=== PATIENT | male | born 1950 | race Caucasian/White ===

== ENCOUNTER 2019-06-29 14:14 | Emergency (ER) | payer MEDICARE, SELFPAY ==
--- NOTE | ~2019-06-29 | CT_ITS ---
EXAMINATION: CT abdomen pelvis wo con DATE: 06/29/2019 15:51 INDICATION: Left flank pain for 2 days. Bloating. Status post cholecystectomy. TECHNIQUE: Computed tomography (CT) of the abdomen and pelvis was performed without intravenous contr ast. Automated exposure control and iterative reconstruction technique were employed. Exam dose: 733 .23 mGy-cm total exam DLP. COMPARISON: 05/19/2017 CT abdomen pelvis FINDINGS: Mild bilateral gynecomastia. Prominent coronary artery calcification. Normal heart size. No pericardial or pleural effusion. The lung bases are clear of infiltrate or consolidation. Diffuse hepatic steatosis. No hepatic space-occupying mass lesion. Status post cholecystectomy. No bile duct or pancreatic duct dilatation. No pancreatic mass lesion or calcification. Normal morphology of the adrenal glands. 3.6 cm left renal cyst. No other renal space-occupying mass lesion is evident. No urinary tract calci fication or hydroureteronephrosis. There is abdominal aortic calcification and calcification aortic branches. 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 There is atherosclerotic calcification of the iliac and fem oral arteries. Normal appendix. There is diverticulosis of the sigmoid and descending colon. There is a minimal domingo colic stranding in the mid sigmoid colon area. Mild sigmoid diverticulitis is suggested. No abscess o r apparent intraperitoneal free air. Prostate enlargement. Mild diffuse bladder wall thickening. Small bilateral fat-containing inguinal hernias. Diffuse idiopathic skeletal hyperostosis of the thoracic and lumbar spine. Avascular necrosis of both femoral heads. IMPRESSION: Suggestion of subtle mild mid sigmoid diverticulitis Normal appendix Prostate enlargement Bilateral fat-containing inguinal hernias 3.6 cm left renal cyst Hepatic steatosis Coronary atherosclerosis Mild bilateral gynecomastia Reviewed, dictated and finalized at [facility] Reviewed, dictated and finalized at [facility].
[2019-06-29 15:15] VITALS: BP 119/68; PULSE 73; RESP 20; TEMP 36.6; O2SAT 97
[2019-06-29] MEDS: SODIUM CHLORIDE 0.9% IV 1,000 ML 999 ML IV CONT (16:06)
[2019-06-29] MEDS: KETOROLAC (*BKC) 60 MG/2 ML VIAL IM (16:07)
[2019-06-29 16:12] LABS: Hematocrit 44.6 % (37.0-46.0); Hemoglobin 14.8 g/dL (12.4-15.3); Mean Corpuscular HGB Conc 33.2 g/dL (32.0-36.0); Mean Corpuscular Hemoglobin 31.4 pg (27.0-31.0); Mean Corpuscular Volume 94.7 fL (78.0-102.0); Mean Platelet Volume 10.6 fl (8.7-11.0); Platelet Count Result 256 K/mm3 (150-420); Red Blood Count 4.71 M/mm3 (4.70-6.10); Red Cell Distribution Width 12.6 % (11.6-14.4); White Blood Count 15.2 K/mm3 (4.8-10.8)
--- NOTE | 2019-06-29 16:19 | PC.NURSE ---
pt resting per cot, no complaints. awaiting lab results.
[2019-06-29 16:25] LABS: Bilirubin Urine Negative (Negative); Blood Urine 3+ (Negative); Glucose Urine UA Negative (Negative); Ketones Urine Negative (Negative); Leukocyte Esterase Ur Negative (Negative); Nitrate Urine Negative (Negative); Protein Urine Negative (Negative); Specific Grav Ur 1.025 (1.010-1.020); Urobilinogen Urine 0.2 mg/dL (0.2-1.0); pH Urine 5.5 (5.0-8.0)
[2019-06-29 16:30] LABS: Alanine Aminotransferase 37 U/L (16-63); Albumin Level 3.8 g/dL (3.4-5.0); Alkaline Phosphatase 67 U/L (46-116); Aspartate Amino Transferase 19 U/L (15-37); Bilirubin,Total 0.4 mg/dL (0.00-1.00); Blood Urea Nitrogen 21 mg/dL (7-18); Calcium 9.1 mg/dL (8.5-10.1); Carbon Dioxide 26 mmol/L (21-32); Estimated CRCL calculation 63 ml/min; Estimated Glomerular Filt Rate > 60; Glucose 100 mg/dL (70-99); Total Protein 7.3 g/dL (6.4-8.2)
[2019-06-29 16:39] LABS: Add Urine Microscopic? YES; Appearance Urine Clear (Clear); Color Urine Yellow (Yellow); RBC Urine 21-50 /hpf (0-2); WBC Urine None seen /hpf (0-3)
[2019-06-29 16:40] LABS: Bacteria Urine Trace /hpf; Mucus Urine Moderate /lpf; Squamous Epithelial Cell Urine Few /hpf (Few)
[2019-06-29 16:52] LABS: Chloride 105 mmol/L (98-108); Osmolality Calculated 293 mOsm/kg (285-295); Sodium 140 mmol/L (136-145)
[2019-06-29 16:57] VITALS: BP 114/69; PULSE 71; RESP 202; TEMP 36.6; O2SAT 97
--- NOTE | 2019-06-29 16:57 | ED.ABDPAIN ---
HPI - Abdominal Pain General Chief Complaint: Urogenital-Male Stated Complaint: left side pain Source: patient Mode of arrival: ambulatory Limitations: no limitations History of Present Illness HPI narrative: Stay 68-year-old gentleman presents with left flank pain rates his pain about 8/10 with no fever chills no shortness of breath no chest pain pain does radiate to his left lower quadrant, with no nausea vomiting no diarrhea constipation. MD elicited complaint: abdominal pain and flank pain Pertinent past history: none Onset (ago): day(s) Pain Consistency: constant Location: L flank Severity: moderate Pain scale (0-10): 8 Quality: aching Radiation: L flank Migration to: no migration Exacerbating factors: nothing Relieving factors: nothing Associated symptoms: hematuria Related Data Home Medications Medication Instructions Recorded Confirmed clopidogrel 75 mg PO DAILY 02/13/19 06/29/19 finasteride 5 mg PO DAILY 02/13/19 06/29/19 metformin 500 mg PO BID 02/13/19 06/29/19 metoprolol tartrate 25 mg PO BID 02/13/19 06/29/19 tamsulosin 0.4 mg PO DAILY 02/13/19 06/29/19 Allergies Allergy/AdvReac Type Severity Reaction Status Date / Time carbamazepine [From Tegretol] Allergy Unknown Verified 02/13/19 13:32 Penicillins Allergy Unknown Verified 02/13/19 13:32 Review of Systems Review of Systems: All systems reviewed & are unremarkable except as noted in HPI and below Exam Const: General: no acute distress and alert Orientation/consciousness: patient oriented x3 HENMT: Head: normal to inspection Eyes: Conjunctivae: conjunctivae normal Pupils: Equal, round and reactive pupils present Neck: Neck: normal visual inspection Chest: Chest palpation & inspection: normal inspection of the chest Resp: Effort & Inspection: normal respiratory effort Auscultation: clear to auscultation bilaterally Cardio: Rate: regular rate Rhythm: regular rhythm GI: GI Palp: Yes Soft to palpation : General: Yes CVA tenderness Back/Spine/Pelvis: Back: CVA tenderness (left flank) Skin: General skin exam: normal color Rashes: no rashes Neuro: General: patient oriented x3 Extrem: General: normal to inspection Psych: Mental Status: mental status grossly normal Course Course Emergency Course: Improved after administration of pain medication. Vital Signs Vital signs: Vital Signs Temperature 36.6 C 06/29/19 15:15 Pulse Rate 73 06/29/19 15:15 Respiratory Rate 20 06/29/19 15:15 Blood Pressure 119/68 06/29/19 15:15 Pulse Oximetry 97 06/29/19 15:15 Temperature 36.6 C 06/29/19 15:15 Pulse Rate 73 06/29/19 15:15 Respiratory Rate 20 06/29/19 15:15 Blood Pressure 119/68 06/29/19 15:15 Pulse Oximetry 97 06/29/19 15:15 MDM - Abdominal Pain Lab Data Result diagrams: 06/29/19 16:03 06/29/19 16:03 Labs: Lab Results 06/29/19 06/29/19 06/29/19 Range/Units 15:37 16:03 16:03 WBC 15.2 H (4.8-10.8) K/mm3 RBC 4.71 (4.70-6.10) M/mm3 Hgb 14.8 (12.4-15.3) g/dL Hct 44.6 (37.0-46.0) % MCV 94.7 (78.0-102.0) fL MCH 31.4 H (27.0-31.0) pg MCHC 33.2 (32.0-36.0) g/dL RDW 12.6 (11.6-14.4) % Plt Count 256 (150-420) K/mm3 MPV 10.6 (8.7-11.0) fl Sodium 140 (136-145) mmol/L Potassium 4.0 (3.5-5.1) mmol/L Chloride 105 (98-108) mmol/L Carbon Dioxide 26 (21-32) mmol/L Anion Gap 13.0 (7-16) mmol/L BUN 21 H (7-18) mg/dL Creatinine 1.19 (0.70-1.30) mg/dL Estim Creat Clear Calc 63 ml/min Estimated GFR > 60 (59 - ) Glucose 100 H (70-99) mg/dL Calculated Osmolality 293 (285-295) mOsm/kg Calcium 9.1 (8.5-10.1) mg/dL Total Bilirubin 0.4 (0.00-1.00) mg/dL AST 19 (15-37) U/L ALT 37 (16-63) U/L Alkaline Phosphatase 67 (46-116) U/L Total Protein 7.3 (6.4-8.2) g/dL Albumin 3.8 (3.4-5.0) g/dL Urine Color Yellow (Yellow) Urine Appearance
== END 2019-06-29 17:07 | disposition home or self-care (01) ==
PROVIDERS: Emergency Provider Emergency Medicine
DX: N39.0 Urinary tract infection, site not specified (principal); R31.9 Hematuria, unspecified; I25.10 Atherosclerotic heart disease of native coronary artery without angina pectoris; E11.9 Type 2 diabetes mellitus without complications; J44.9 Chronic obstructive pulmonary disease, unspecified
CPT/HCPCS: 36415; 74176; 80053; 81001; 85027; 96360; 96372; 99283; 99284; J1885; J7030

== ENCOUNTER 2019-07-18 04:27 | Emergency (ER) | payer MEDICARE, SELFPAY ==
[2019-07-18 04:43] VITALS: BP 136/80; PULSE 94; RESP 18; TEMP 36.3; O2SAT 97
--- NOTE | 2019-07-18 04:56 | ED.DENTAL ---
HPI - Dental/Oral General Chief complaint: Dental/Oral Stated complaint: Swollen jaw Source: patient Mode of arrival: ambulatory Limitations: no limitations History of Present Illness HPI Narrative: Patient presents with left lower jaw swelling has severe dental decay with tooth loss in his left lower jaw and throughout, currently no fever chills has a tender large left submandibular gland swelling with no fever or chills no shortness of breath no nausea vomiting or abdominal pain Onset (ago): hour(s) Duration: constant Severity: mild Severity scale (1-10): 3 Relieving factors: NSAIDs Exacerbating factors: chewing Context: history of dental caries Associated symptoms: gum swelling Related Data Home Medications Medication Instructions Recorded Confirmed clopidogrel 75 mg PO DAILY 02/13/19 07/18/19 finasteride 5 mg PO DAILY 02/13/19 07/18/19 metformin 500 mg PO BID 02/13/19 07/18/19 metoprolol tartrate 25 mg PO BID 02/13/19 07/18/19 tamsulosin 0.4 mg PO DAILY 02/13/19 07/18/19 lovastatin 20 mg PO DAILY 07/18/19 07/18/19 nitroglycerin 0.4 mg SUBLINGUAL PRN PRN 07/18/19 07/18/19 Allergies Allergy/AdvReac Type Severity Reaction Status Date / Time carbamazepine [From Tegretol] Allergy Unknown Verified 02/13/19 13:32 clindamycin Allergy Unknown Verified 07/18/19 04:54 Penicillins Allergy Unknown Verified 02/13/19 13:32 Review of Systems Review of Systems: All systems reviewed & are unremarkable except as noted in HPI and below Exam Const: General: no acute distress and alert Orientation/consciousness: patient oriented x3 HENMT: Head: normal to inspection Eyes: Conjunctivae: conjunctivae normal Pupils: Equal, round and reactive pupils present Neck: Neck: normal visual inspection and no lymphadenopathy Chest: Chest palpation & inspection: normal inspection of the chest Resp: Effort & Inspection: normal respiratory effort Cardio: Rate: regular rate : Testes: Testes normal Back/Spine/Pelvis: Back: no CVA tenderness Skin: General skin exam: normal color Rashes: no rashes Neuro: General: patient oriented x3 Extrem: General: normal to inspection Psych: Appearance: grossly normal Mental Status: mental status grossly normal Course Vital Signs Vital signs: Vital Signs Temperature 36.3 C L 07/18/19 04:43 Pulse Rate 94 07/18/19 04:43 Respiratory Rate 18 07/18/19 04:43 Blood Pressure 136/80 07/18/19 04:43 Pulse Oximetry 97 07/18/19 04:43 Temperature 36.3 C L 07/18/19 04:43 Pulse Rate 94 07/18/19 04:43 Respiratory Rate 18 07/18/19 04:43 Blood Pressure 136/80 07/18/19 04:43 Pulse Oximetry 97 07/18/19 04:43 Discharge Plan Discharge Clinical Impression: Dental caries, Dental abscess Patient Disposition: Home, Self-Care Condition: Stable Instructions: Antibiotic Form, Dental Abscess (ED) Additional Instructions: take medicine as prescribed and follow-up with primary care physician if symptoms persist or worsen. Prescriptions: New sulfamethoxazole-trimethoprim [Bactrim DS] 800-160 mg tablet 1 tablet PO Q12H Qty: 20 RF: 0 No Action metformin 500 mg tablet 500 mg PO BID RF: 0 clopidogrel 75 mg tablet 75 mg PO DAILY RF: 0 tamsulosin 0.4 mg capsule 0.4 mg PO DAILY RF: 0 finasteride 5 mg tablet 5 mg PO DAILY RF: 0 metoprolol tartrate 25 mg tablet 25 mg PO BID RF: 0 sucralfate [Carafate] 1 gram tablet 1 gm PO Q6H Qty: 90 RF: 1 pantoprazole [Protonix] 40 mg tablet,delayed release (DR/EC) 40 mg PO QAM 42 Days Qty: 42 RF: 0 nitroglycerin 0.4 mg tablet, sublingual 0.4 mg sublingual PRN PRN (Reason: Angina) RF: 0 lovastatin 20 mg tablet 20 mg PO DAILY RF: 0 Follow-up/Referrals: Maicol Gómez M.D. [Primary Care Provider] - Stand Alone Forms: Work/School Release IP Time of Disposition: :02
[2019-07-18 05:05] VITALS: BP 138/78; PULSE 85; RESP 20; O2SAT 98
== END 2019-07-18 05:12 | disposition home or self-care (01) ==
PROVIDERS: Emergency Provider Emergency Medicine; PCP Family Medicine
DX: K02.9 Dental caries, unspecified (principal); K04.7 Periapical abscess without sinus
CPT/HCPCS: 99283

== ENCOUNTER 2019-08-10 08:19 | Emergency (ER) | payer MEDICARE, SELFPAY ==
[2019-08-10 08:25] VITALS: BP 131/73; PULSE 81; RESP 18; TEMP 36.3; O2SAT 97
--- NOTE | 2019-08-10 08:40 | ED.ALLEREA ---
HPI - Allergic Reaction General Chief complaint: Allergic Reaction Stated complaint: Swelling in face Time Seen by Provider: 08/10/19 08:41 Source: patient Mode of arrival: ambulatory Limitations: no limitations History of Present Illness HPI narrative: 68-year-old man with a history type 2 diabetes comes in today complaining of swelling of his left lower lip and jaw that started this morning. Patient is concerned that he has an allergic reaction. He has had some dental infections recently and used leftover UTI medicine (cephalexin) since the swelling and pain began 2 days ago. He also complains that he has been short of breath. He denies fever, itching, rash, wheezing, cough, cold symptoms, sore throat or tongue/throat swelling. He states he has had an allergic reaction to penicillins and clindamycin in the past. MD complaint: facial swelling Onset (ago): day(s) (1-2) Exposure: medication Known history of allergy to: Penicillins, clindamycin, carbamazepine Symptoms: facial swelling and lip swelling Severity: mild Treatment prior to arrival: none Related Data Home Medications Medication Instructions Recorded Confirmed clopidogrel 75 mg PO DAILY 02/13/19 08/10/19 finasteride 5 mg PO DAILY 02/13/19 08/10/19 metformin 500 mg PO BID 02/13/19 08/10/19 metoprolol tartrate 25 mg PO BID 02/13/19 08/10/19 tamsulosin 0.4 mg PO DAILY 02/13/19 08/10/19 lovastatin 20 mg PO DAILY 07/18/19 08/10/19 nitroglycerin 0.4 mg SUBLINGUAL PRN PRN 07/18/19 08/10/19 Allergies Allergy/AdvReac Type Severity Reaction Status Date / Time carbamazepine [From Tegretol] Allergy Unknown Verified 02/13/19 13:32 clindamycin Allergy Unknown Verified 07/18/19 04:54 Penicillins Allergy Unknown Verified 02/13/19 13:32 Review of Systems Constitutional: Constitutional: Denies chills, Denies fever(s) and Denies weakness Eyes: Eyes: Denies change in vision and Denies photophobia ENT: Denies dysphagia, Denies nasal congestion and Denies sore throat Cardiovascular: Cardiovascular: Denies chest pain and Denies radiating jaw, neck or arm pain Respiratory: Respiratory: Denies cough, Reports dyspnea and Denies wheezing Gastrointestinal: Gastrointestinal: Denies abdominal pain, Denies diarrhea, Denies nausea and Denies vomiting Genitourinary: Genitourinary: Denies hematuria, Denies dysuria and Denies urinary frequency Musculoskeletal: Musculoskeletal: Denies back pain, Denies arthralgias and Denies joint swelling Integumentary/Breasts: Skin/Breast: Denies pruritus, Denies erythema and Denies rash Neurologic: Denies vertigo, Denies dizziness and Denies syncope Psychiatric: Psychiatric: Denies anxiety and Denies depression Hematologic/Lymphatic: Hematologic/Lymphatic: Denies easy bleeding and Denies easy bruising Allergic/Immunologic: Allergic/Immunologic: Reports lip swelling, Denies throat swelling, Denies tongue swelling and Denies wheezing [facility] Past Medical History Medical History (Updated 08/10/19 @ 09:28 by Sam Mueller MD) BPH (benign prostatic hyperplasia) CAD (coronary artery disease) Diabetes mellitus Hypertension Type 2 diabetes mellitus Social History Social History (Updated 08/10/19 @ 09:23 by Sam Mueller MD) Smoking status: Never smoker Alcohol intake: unknown Substance use: never Living arrangements: with family Exam Const: General: no acute distress and alert Orientation/consciousness: patient oriented x3 HENMT: Head: normal to inspection Ears: external ears normal, TM's normal bilaterally and EAC's normal Mouth: Yes moist mucous membranes Throat: posterior oropharynx normal and uvula midline Other: gingival swelling adjacent to the premolars on the left jaw. There is also buccal swelling and mild tenderness. There is some edema of the left lower lip that does not pass midline. Eyes: Conjunctivae: conjunctivae normal Pupils: Equal, round and reactive pupils present EOM: EOMs intact bilatera
[2019-08-10 08:47] VITALS: BP 127/73; PULSE 85; RESP 20; O2SAT 96
[2019-08-10] MEDS: metroNIDAZOLE 500 MG/ISO 100ML 500 MG/100 ML BAG 100 MG IVPB (08:55)
[2019-08-10 09:05] LABS: Basophils Absolute Auto 0.05 K/mm3 (0.00-0.10); Basophils Percent Auto 0.4 % (0.0-1.0); Eosinophils Absolute Auto 0.44 K/mm3 (0.02-0.50); Eosinophils Percent Auto 3.9 % (1.0-6.0); Hematocrit 44.8 % (37.0-46.0); Immature Granulocyte Absolute 0.09 K/mm3 (0.00-0.00); Immature Granulocyte Percent A 0.8 % (0.0-0.0); Lymphocytes Absolute Auto 2.46 K/mm3 (1.10-4.50); Lymphocytes Percent Auto 21.6 % (18.0-42.0); Mean Corpuscular HGB Conc 33.5 g/dL (32.0-36.0); Mean Corpuscular Hemoglobin 31.6 pg (27.0-31.0); Mean Corpuscular Volume 94.3 fL (78.0-102.0); Mean Platelet Volume 10.7 fl (8.7-11.0); Monocytes Absolute Auto 0.96 K/mm3 (0.10-0.90); Monocytes Percent Auto 8.4 % (2.0-11.0); Neutrophils Absolute Auto 7.4 K/mm3 (1.7-7.2); Neutrophils Percent Auto 64.9 % (50.0-70.0); Platelet Count Result 240 K/mm3 (150-420); Red Blood Count 4.75 M/mm3 (4.70-6.10); White Blood Count 11.4 K/mm3 (4.8-10.8)
[2019-08-10 09:19] LABS: Alanine Aminotransferase 32 U/L (16-63); Albumin Level 3.5 g/dL (3.4-5.0); Alkaline Phosphatase 59 U/L (46-116); Anion Gap 12.2 mmol/L (7-16); Aspartate Amino Transferase 17 U/L (15-37); Bilirubin,Total 0.4 mg/dL (0.00-1.00); Blood Urea Nitrogen 17 mg/dL (7-18); Calcium 8.8 mg/dL (8.5-10.1); Carbon Dioxide 28 mmol/L (21-32); Chloride 105 mmol/L (98-108); Estimated CRCL calculation 88 ml/min; Estimated Glomerular Filt Rate > 60; Glucose 113 mg/dL (70-99); Osmolality Calculated 294 mOsm/kg (285-295); Potassium 4.2 mmol/L (3.5-5.1); Sodium 141 mmol/L (136-145)
[2019-08-10 09:42] VITALS: BP 117/62; PULSE 72; RESP 18; O2SAT 95
[2019-08-10 10:46] VITALS: BP 143/79; PULSE 74; RESP 16; O2SAT 96
== END 2019-08-10 10:46 | disposition home or self-care (01) ==
PROVIDERS: Emergency Provider Emergency Medicine; PCP Family Medicine
DX: R22.0 Localized swelling, mass and lump, head (principal); K04.7 Periapical abscess without sinus; E11.9 Type 2 diabetes mellitus without complications
CPT/HCPCS: 36415; 80053; 85025; 96365; 96366; 96367; 99283; 99284; J1956

== ENCOUNTER 2019-09-29 17:47 | Emergency (ER) | payer MEDICARE, SELFPAY ==
--- NOTE | ~2019-09-29 | XR_ITS ---
EXAMINATION: XR abdomen obstructive series DATE: 09/29/2019 19:37 INDICATION: Lower chest and upper abdomen pain. Shortness of breath. Bloating. TECHNIQUE: Supine and upright views of the abdomen. FINDINGS: 10/10/2015 The visualized lung parenchyma is normal.. There is a nonobstructive bowel gas pattern. Gas and stool are seen throughout the colon to the level of the rectum. There is no free air. There are cholecyst ectomy clips. Moderate lumbar spondylosis. There is an irregular sclerotic lesions of the femoral hea ds, possibly avascular necrosis. IMPRESSION: 1. No acute abdominal abnormality. Reviewed, dictated and finalized at [facility].
[2019-09-29 18:00] VITALS: BP 137/77; PULSE 73; RESP 16; TEMP 36.7; O2SAT 95
--- NOTE | 2019-09-29 18:50 | ECG_ITS ---
Measurements Intervals [place] Rate: 66 P: 11 RI: 167 QRS: 6 QRSD: 100 T: 69 QT: 396 QTc: 418 Interpretive Statements SINUS RHYTHM NORMAL ECG Electronically Signed On 09-29-2019 20:01:32 CDT by Raul Richmond D.O.
--- NOTE | 2019-09-29 18:55 | ED.GENADULT ---
HPI - General Adult General Chief complaint: Shortness of Breath/Dyspnea Stated complaint: SOB/tightness in chest Source: patient Mode of arrival: ambulatory Limitations: no limitations History of Present Illness HPI narrative: 68 y.o. male with morbid obesity, DM (x 1 year), HTN, CAD c/o 3 days of a full, expanding sensation in his chest causing mild discomfort in the midesternal region, also sometimes left or right anterior chest. These symptoms are associated with abdominal distension and fluctuating bloating of his abdomen, and frequent burping and flatus. The latter 2 decrease his symptoms for a brief moment. It is not radiating, is not associated with SOB or vomiting. He has had no appetite. He has had this multiple times before, usually relieved with a g.i. cocktail. But, when he had his MD, it felt the same but was also associated with left arm pain (which he is not having today). This is what brought him into the E.D. Related Data Home Medications Medication Instructions Recorded Confirmed clopidogrel 75 mg PO DAILY 02/13/19 09/29/19 finasteride 5 mg PO DAILY 02/13/19 09/29/19 metformin 500 mg PO BID 02/13/19 09/29/19 metoprolol tartrate 25 mg PO BID 02/13/19 09/29/19 tamsulosin 0.4 mg PO DAILY 02/13/19 09/29/19 lovastatin 20 mg PO DAILY 07/18/19 09/29/19 nitroglycerin 0.4 mg SUBLINGUAL PRN PRN 07/18/19 09/29/19 Allergies Allergy/AdvReac Type Severity Reaction Status Date / Time carbamazepine [From Tegretol] Allergy Unknown Verified 09/29/19 18:34 clindamycin Allergy Unknown Verified 09/29/19 18:34 Penicillins Allergy Unknown Verified 09/29/19 18:34 Review of Systems Constitutional: Constitutional: Denies chills, Denies fever(s) and Denies weakness Eyes: Eyes: Denies change in vision ENT: Denies dysphagia and Denies dizziness Cardiovascular: Cardiovascular: Reports no additional cardiovascular complaints Respiratory: Respiratory: Denies cough, Denies dyspnea and Denies wheezing Gastrointestinal: Gastrointestinal: Denies no additional gastrointestinal complaints Genitourinary: Genitourinary: Denies dysuria Musculoskeletal: Musculoskeletal: Denies myalgias and Denies arthralgias Integumentary/Breasts: Skin/Breast: Denies rash Neurologic: Denies weakness Psychiatric: Psychiatric: Denies anxiety and Denies depression [facility] Past Medical History Medical History (Updated 09/30/19 @ 00:00 by Background [place]) BPH (benign prostatic hyperplasia) CAD (coronary artery disease) Diabetes mellitus Hypertension Type 2 diabetes mellitus Social History Social History (Updated 08/10/19 @ 09:23 by Sam Mueller MD) Smoking status: Never smoker Alcohol intake: unknown Substance use: never Exam Const: Nutritional Appearance: obese Other: Burping every several minutes. Appears uncomfortable. HENMT: Head: normal to inspection General nose exam: Nasal discharge present Mouth: Yes moist mucous membranes Eyes: Conjunctivae: conjunctivae normal Neck: Neck: no lymphadenopathy Chest: Chest palpation & inspection: normal inspection of the chest and no tenderness Resp: Effort & Inspection: normal respiratory effort Auscultation: clear to auscultation bilaterally, no rales, no rhonchi and no wheezes Cardio: Rate: regular rate Rhythm: regular rhythm Heart sounds: no murmurs GI: Other: Obese with rounded abdomen. It is not distended or tight. There is very minor epigastric tenderness. Course Course Emergency Course: Resolution of chest discomfort and belching after G.I. cocktail. In view of the almost continuous belching , symptoms of distension and belching which accompany chest symptoms, and normal ECG it's very unlikely the source of his chest discomfort is cardiac. Pt. d.c. home with instructions to f/u with PCP in 2 days for recheck. . Vital Signs Vital signs: Vital Signs Temperature 36.7 C 09/29/19 18:00 Pulse Rate 73 09/29/19 18:00 Respiratory Rate 16
[2019-09-29] MEDS: ASPIRIN 81 MG CHEWABLE TABLET 324 MG PO (19:07)
[2019-09-29 19:09] LABS: Basophils Absolute Auto 0.07 K/mm3 (0.00-0.10); Basophils Percent Auto 0.6 % (0.0-1.0); Eosinophils Absolute Auto 0.49 K/mm3 (0.02-0.50); Eosinophils Percent Auto 4.2 % (1.0-6.0); Hematocrit 47.7 % (37.0-46.0); Hemoglobin 15.9 g/dL (12.4-15.3); Immature Granulocyte Absolute 0.07 K/mm3 (0.00-0.00); Immature Granulocyte Percent A 0.6 % (0.0-0.0); Lymphocytes Absolute Auto 2.64 K/mm3 (1.10-4.50); Lymphocytes Percent Auto 22.8 % (18.0-42.0); Mean Corpuscular HGB Conc 33.3 g/dL (32.0-36.0); Mean Corpuscular Hemoglobin 30.9 pg (27.0-31.0); Mean Corpuscular Volume 92.8 fL (78.0-102.0); Mean Platelet Volume 11.1 fl (8.7-11.0); Monocytes Absolute Auto 0.85 K/mm3 (0.10-0.90); Monocytes Percent Auto 7.3 % (2.0-11.0); Neutrophils Absolute Auto 7.5 K/mm3 (1.7-7.2); Neutrophils Percent Auto 64.5 % (50.0-70.0); Platelet Count Result 246 K/mm3 (150-420); Red Blood Count 5.14 M/mm3 (4.70-6.10); Red Cell Distribution Width 12.8 % (11.6-14.4); White Blood Count 11.6 K/mm3 (4.8-10.8)
[2019-09-29] MEDS: MAG HYDROX/ALUMINUM HYD/SIMETH 30 ML, PHENobarb/HYOSCY/ATROPINE/SCOP 32.4 MG, LIDOCAINE... PO (19:28)
[2019-09-29 19:30] LABS: Alanine Aminotransferase 47 U/L (16-63); Albumin Level 3.7 g/dL (3.4-5.0); Alkaline Phosphatase 64 U/L (46-116); Anion Gap 10.1 mmol/L (7-16); Aspartate Amino Transferase 26 U/L (15-37); Bilirubin,Total 0.6 mg/dL (0.00-1.00); Blood Urea Nitrogen 22 mg/dL (7-18); Carbon Dioxide 27 mmol/L (21-32); Chloride 106 mmol/L (98-108); Estimated CRCL calculation 71 ml/min; Estimated Glomerular Filt Rate > 60; Glucose 104 mg/dL (70-99); Osmolality Calculated 291 mOsm/kg (285-295); Potassium 4.1 mmol/L (3.5-5.1); Sodium 139 mmol/L (136-145); Total Protein 7.2 g/dL (6.4-8.2)
[2019-09-29 19:32] LABS: Troponin I < 0.02 ng/mL (0.00-0.056)
[2019-09-29 19:33] LABS: Appearance Urine Clear (Clear); Bilirubin Urine Negative (Negative); Color Urine Yellow (Yellow); Glucose Urine UA Negative (Negative); Ketones Urine Negative (Negative); Leukocyte Esterase Ur Negative (Negative); Nitrate Urine Negative (Negative); Protein Urine Negative (Negative); Specific Grav Ur >= 1.030 (1.010-1.020); Urobilinogen Urine 0.2 mg/dL (0.2-1.0)
[2019-09-29 19:40] LABS: Add Urine Microscopic? YES; Bacteria Urine 1+ /hpf; Blood Urine Trace-Intact (Negative); Mucus Urine Moderate /lpf; Squamous Epithelial Cell Urine Rare /hpf (Few); WBC Urine 0-3 /hpf (0-3)
[2019-09-29 20:20] VITALS: BP 130/70; PULSE 70; RESP 16; O2SAT 95
== END 2019-09-29 20:20 | disposition home or self-care (01) ==
PROVIDERS: Emergency Provider Family Medicine; PCP Family Medicine
DX: R07.9 Chest pain, unspecified (principal); K21.9 Gastro-esophageal reflux disease without esophagitis; R14.2 Eructation
CPT/HCPCS: 36415; 74019; 80053; 81001; 84484; 85025; 93005; 99283; 99284; A9270

== ENCOUNTER 2020-02-10 05:15 | Emergency (ER) | payer MEDICARE, SELFPAY ==
--- NOTE | ~2020-02-10 | XR_ITS ---
EXAMINATION: XR chest 2V DATE: 02/10/2020 07:05 INDICATION: Mid chest pain TECHNIQUE: frontal view of the chest was obtained. COMPARISON: Chest radiograph dated 02/13/2019 FINDINGS: The lungs remain clear with no focal airspace opacities, pulmonary edema, pleural effusion or pneumot horax. The cardiomediastinal silhouette is normal. Coronary artery stenting. There are bridging osteo phytes at multiple levels in the spine, consistent with diffuse idiopathic skeletal hyperostosis (DIS H). IMPRESSION: 1. No acute cardiopulmonary disease. Reviewed, dictated and finalized at location A. ICE OBSERVER CHIEF
[2020-02-10 05:33] VITALS: BP 134/79; PULSE 71; RESP 16; TEMP 36.4; O2SAT 96
--- NOTE | 2020-02-10 05:34 | ECG_ITS ---
Measurements Intervals [place] Rate: 72 P: 14 [place]: 143 QRS: -10 QRSD: 106 T: 74 QT: 398 QTc: 436 Interpretive Statements SINUS RHYTHM BORDERLINE ST-T WAVE ABNORMALITY- HIGH LATERAL LEADS BASELINE ARTIFACT- I, II, III BORDERLINE ECG Electronically Signed On 02-10-2020 7:06:41 [employer] by Raul Richmond D.O.
[2020-02-10 06:02] LABS: Basophils Absolute Auto 0.04 K/mm3 (0.00-0.10); Basophils Percent Auto 0.4 % (0.0-1.0); Eosinophils Absolute Auto 0.34 K/mm3 (0.02-0.50); Eosinophils Percent Auto 3.2 % (1.0-6.0); Hematocrit 46.1 % (37.0-46.0); Hemoglobin 15.2 g/dL (12.4-15.3); Immature Granulocyte Absolute 0.09 K/mm3 (0.00-0.00); Immature Granulocyte Percent A 0.9 % (0.0-0.0); Lymphocytes Absolute Auto 2.88 K/mm3 (1.10-4.50); Lymphocytes Percent Auto 27.3 % (18.0-42.0); Mean Corpuscular Hemoglobin 31.4 pg (27.0-31.0); Mean Corpuscular Volume 95.2 fL (78.0-102.0); Mean Platelet Volume 11.2 fl (8.7-11.0); Monocytes Absolute Auto 0.87 K/mm3 (0.10-0.90); Monocytes Percent Auto 8.3 % (2.0-11.0); Neutrophils Absolute Auto 6.3 K/mm3 (1.7-7.2); Neutrophils Percent Auto 59.9 % (50.0-70.0); Platelet Count Result 238 K/mm3 (150-420); Red Blood Count 4.84 M/mm3 (4.70-6.10); Red Cell Distribution Width 12.4 % (11.6-14.4); White Blood Count 10.5 K/mm3 (4.8-10.8)
[2020-02-10] MEDS: MAG HYDROX/ALUMINUM HYD/SIMETH 30 ML, PHENobarb/HYOSCY/ATROPINE/SCOP 32.4 MG, LIDOCAINE... PO (06:04)
[2020-02-10 06:18] LABS: D Dimer 0.44 mg/L (0.19-0.50)
[2020-02-10 06:21] LABS: Alanine Aminotransferase 37 U/L (16-63); Albumin Level 3.7 g/dL (3.4-5.0); Alkaline Phosphatase 57 U/L (46-116); Anion Gap 10 mmol/L (8-16); Aspartate Amino Transferase 15 U/L (15-37); Bilirubin,Total 0.4 mg/dL (0.00-1.00); Blood Urea Nitrogen 21 mg/dL (7-18); Calcium 9.1 mg/dL (8.5-10.1); Carbon Dioxide 24 mmol/L (21-32); Chloride 107 mmol/L (98-108); Estimated CRCL calculation 75 ml/min; Estimated Glomerular Filt Rate > 60; Glucose 120 mg/dL (70-99); Osmolality Calculated 296 mOsm/kg (285-295); Potassium 3.9 mmol/L (3.5-5.1); Sodium 141 mmol/L (136-145); Total Protein 7.1 g/dL (6.4-8.2); Troponin I 9.4 ng/L (0.00-60.4)
[2020-02-10 06:30] LABS: BNP 5 pg/mL (0-100); SARS-CoV-2 Ag Negative (Negative)
--- NOTE | 2020-02-10 06:32 | PC.NURSE ---
pt repositioned. voices mod c/p relief after GI cocktail. resp even and non-labored. lights out. call perla within reach. pt resting quietly
[2020-02-10 06:33] VITALS: BP 141/66; PULSE 78; RESP 16; TEMP 36.6; O2SAT 97
--- NOTE | 2020-02-10 06:50 | ED.CHESTPAIN ---
HPI - Chest Pain General Chief Complaint: Chest Pain Stated Complaint: Chest Pain Source: patient Mode of arrival: ambulatory Limitations: other (poor historian) History of Present Illness HPI narrative: Patient says he has had chest pain for the past few days midsternal. This has been going off and on for days. GI cocktail has helped in past. This was a 3 on scale of 1-10 when he came in, midsternal, associated with some left arm numbness. Associated with a lot of gas. Pertinent past history: coronary artery disease Onset (ago): day(s) Onset: other (unclear) Pain location: other (midsternal) Quality: aching Relieving factors: antacids Exacerbating factors: nothing Risk Factors Coronary artery disease risk factors: diabetes (on Metformin) and smoking history Related Data Home Medications Medication Instructions Recorded Confirmed clopidogrel 75 mg PO DAILY 02/13/19 09/29/19 finasteride 5 mg PO DAILY 02/13/19 09/29/19 metformin 500 mg PO BID 02/13/19 09/29/19 metoprolol tartrate 25 mg PO BID 02/13/19 09/29/19 tamsulosin 0.4 mg PO DAILY 02/13/19 09/29/19 lovastatin 20 mg PO DAILY 07/18/19 09/29/19 nitroglycerin 0.4 mg SUBLINGUAL PRN PRN 07/18/19 09/29/19 Allergies Allergy/AdvReac Type Severity Reaction Status Date / Time carbamazepine [From Tegretol] Allergy Unknown Verified 02/10/20 05:33 clindamycin Allergy Unknown Verified 02/10/20 05:33 Penicillins Allergy Unknown Verified 02/10/20 05:33 Review of Systems Constitutional: Constitutional: Reports no additional constitutional complaints Eyes: Eyes: Reports no additional eye complaints ENT: Reports system reviewed and no additional complaints, except as documented Cardiovascular: Cardiovascular: Reports no additional cardiovascular complaints Respiratory: Respiratory: Reports no additional respiratory complaints Gastrointestinal: Gastrointestinal: Reports no additional gastrointestinal complaints Genitourinary: Genitourinary: Reports no additional male genitourinary complaints Musculoskeletal: Musculoskeletal: Reports no additional musculoskeletal complaints Integumentary/Breasts: Skin/Breast: Reports system reviewed and no additional complaints, except as docu Neurologic: Reports system reviewed and no additional complaints, except as documented Psychiatric: Psychiatric: Reports no additional psychiatric complaints Endocrine: Endocrine: Reports no additional endocrine complaints Hematologic/Lymphatic: Hematologic/Lymphatic: Reports no additional hematologic/lymphatic complaints Allergic/Immunologic: Allergic/Immunologic: Reports no additional allergic/immunologic complaints [facility] Past Medical History Medical History BPH (benign prostatic hyperplasia) CAD (coronary artery disease) Diabetes mellitus Hypertension Type 2 diabetes mellitus Social History Social History Smoking status: Never smoker Alcohol intake: unknown Substance use: never Exam Narrative: Exam Narrative: no acute distress Const: General: no acute distress HENMT: Head: normal to inspection Other: poor dentition Eyes: Conjunctivae: conjunctivae normal Neck: Neck: normal visual inspection Chest: Chest palpation & inspection: normal inspection of the chest Resp: Effort & Inspection: normal respiratory effort Other: soft inspiratory wheezes Cardio: Rate: regular rate Rhythm: regular rhythm GI: GI Palp: Yes Soft to palpation Other: mild tenderness in LLQ Skin: General skin exam: normal color Neuro: General: patient oriented x3 Speech: normal speech Extrem: General: normal to inspection Psych: Mental Status: mental status grossly normal Course Course Emergency Course: Labs, reviewed. Improved after GI cocktail. Sign out to Dr. Aragon at 7am Vital Signs Vital signs: Vital Signs Temperature 36.4 C 02/10/20 05:33 Pulse Rate 71 12
[2020-02-10 07:21] LABS: Erythrocyte Sedimentation Rate 4 mm/hr (0-20)
[2020-02-10 08:07] VITALS: BP 135/74; PULSE 75; O2SAT 95
--- NOTE | 2020-02-10 09:50 | ED.GENADULT ---
HPI - General Adult General Chief complaint: Chest Pain Stated complaint: Chest Pain Source: patient Mode of arrival: ambulatory Limitations: other (poor historian) History of Present Illness HPI narrative: Christopher is a 69M with a PMH of CAD, GERD, HTN, DMII that presented to the ER w/ chest pain. I resumed care from Dr. Spence at 0830. At this time his chest pain was largely improved from prior after a GI cocktail. No SOB, lightheadedness, near-syncope/syncope or nausea/vomiting. Related Data Home Medications Medication Instructions Recorded Confirmed clopidogrel 75 mg PO DAILY 02/13/19 09/29/19 finasteride 5 mg PO DAILY 02/13/19 09/29/19 metformin 500 mg PO BID 02/13/19 09/29/19 metoprolol tartrate 25 mg PO BID 02/13/19 09/29/19 tamsulosin 0.4 mg PO DAILY 02/13/19 09/29/19 lovastatin 20 mg PO DAILY 07/18/19 09/29/19 nitroglycerin 0.4 mg SUBLINGUAL PRN PRN 07/18/19 09/29/19 Allergies Allergy/AdvReac Type Severity Reaction Status Date / Time carbamazepine [From Tegretol] Allergy Unknown Verified 02/10/20 05:33 clindamycin Allergy Unknown Verified 02/10/20 05:33 Penicillins Allergy Unknown Verified 02/10/20 05:33 Review of Systems Constitutional: Constitutional: Denies chills, Denies fever(s) and Denies weakness Eyes: Eyes: Reports no additional eye complaints ENT: Reports system reviewed and no additional complaints, except as documented Cardiovascular: Cardiovascular: Reports as per HPI Respiratory: Respiratory: Reports as per HPI Gastrointestinal: Gastrointestinal: Reports no additional gastrointestinal complaints Genitourinary: Genitourinary: Reports no additional male genitourinary complaints Musculoskeletal: Musculoskeletal: Reports no additional musculoskeletal complaints Integumentary/Breasts: Skin/Breast: Reports system reviewed and no additional complaints, except as docu Neurologic: Reports system reviewed and no additional complaints, except as documented Psychiatric: Psychiatric: Reports no additional psychiatric complaints Endocrine: Endocrine: Reports no additional endocrine complaints Hematologic/Lymphatic: Hematologic/Lymphatic: Reports no additional hematologic/lymphatic complaints Allergic/Immunologic: Allergic/Immunologic: Reports no additional allergic/immunologic complaints [facility] Past Medical History Medical History BPH (benign prostatic hyperplasia) CAD (coronary artery disease) Diabetes mellitus Hypertension Type 2 diabetes mellitus Social History Social History Smoking status: Never smoker Alcohol intake: unknown Substance use: never Exam Const: General: no acute distress and alert Orientation/consciousness: patient oriented x3 Limitations: No altered mental status HENMT: Head: normal to inspection Eyes: Pupils: Equal, round and reactive pupils present Neck: Neck: normal visual inspection Chest: Chest palpation & inspection: normal inspection of the chest Resp: Effort & Inspection: normal respiratory effort Auscultation: clear to auscultation bilaterally Cardio: Rate: regular rate Rhythm: regular rhythm Heart sounds: no murmurs GI: Inspection: non-distended GI Palp: Yes Soft to palpation and No Tenderness to palpation present (GI) Skin: General skin exam: normal color Rashes: no rashes Neuro: General: patient oriented x3 and moves all extremities Extrem: General: normal to inspection Psych: Mental Status: mental status grossly normal Course Course Emergency Course: Christopher was doing well. His second trop came back wnl. As both troponins were wnl and his CP was better after a GI cocktail he was discharged as it was unlikely to be cardiac in origin. Vital Signs Vital signs: Vital Signs Temperature 97.6 F 02/10/20 05:33 Pulse Rate 71 02/10/20 05:33 Respiratory Rate 16 02/10/20 05:33 Blood Pressure 134/79 02/10/20 05:3
[2020-02-10 09:55] VITALS: BP 142/73
== END 2020-02-10 09:55 | disposition home or self-care (01) ==
PROVIDERS: Emergency Provider Emergency Medicine; PCP Family Medicine
DX: R07.9 Chest pain, unspecified (principal); K21.9 Gastro-esophageal reflux disease without esophagitis; Z20.828 Contact with and (suspected) exposure to other viral communicable diseases
CPT/HCPCS: 36415; 71046; 80053; 83880; 84484; 85025; 85380; 85652; 87426; 93005; 99283; 99284; A9270

== ENCOUNTER 2020-02-29 14:55 | Emergency (ER) | payer MEDICARE, SELFPAY ==
--- NOTE | ~2020-02-29 | XR_ITS ---
EXAMINATION: XR chest 1V portable 02/29/2020 15:56 INDICATION: Chest pain PROCEDURE: AP portable chest COMPARISON: Comparison to multiple prior studies sequentially, with oldest reviewed study dated 06/14. FINDINGS: The lungs are clear. The cardiomediastinal silhouette is within normal limits. There are no pleural effusions. There is no pneumothorax suspected. IMPRESSION: 1: NO ACUTE CARDIOPULMONARY DISEASE. Reviewed, dictated and finalized at location A. ICAL PROGRAM CONSULTANT
[2020-02-29 15:00] VITALS: BP 101/58; PULSE 74; RESP 17; TEMP 36.6; O2SAT 97
--- NOTE | 2020-02-29 15:03 | ECG_ITS ---
Measurements Intervals [place] Rate: 77 P: 7 NE: 157 QRS: -20 QRSD: 102 T: 73 QT: 380 QTc: 433 Interpretive Statements SINUS RHYTHM INCOMPLETE RIGHT BUNDLE BRANCH BLOCK BASELINE ARTIFACT- I, II, AVR BORDERLINE ECG Electronically Signed On 03-01-2020 7:20:31 [employer] by Raul Richmond D.O.
--- NOTE | 2020-02-29 15:09 | ED.CHESTPAIN ---
HPI - Chest Pain General Chief Complaint: Chest Pain Stated Complaint: chest pain Time Seen by Provider: 02/29/20 15:09 Source: patient Mode of arrival: ambulatory Limitations: no limitations History of Present Illness HPI narrative: Patient says she has chest pressure and has been burping and farting a lot. He says he has had epigastric discomfort from this. This has been moderately severe, and ongoing. He was afraid to take his GI cocktail. He does not associate this with any food. It started about an hour before presentation and is ongoing although it has decreased some. Pertinent past history: coronary artery disease Prior episodes: Yes Onset: during rest, during exertion and after eating Pain location: substernal and other (low sternal) Pain radiation: none Relieving factors: nothing Exacerbating factors: nothing Risk Factors Coronary artery disease risk factors: none Related Data Home Medications Medication Instructions Recorded Confirmed clopidogrel 75 mg PO DAILY 02/13/19 09/29/19 finasteride 5 mg PO DAILY 02/13/19 09/29/19 metformin 500 mg PO BID 02/13/19 09/29/19 metoprolol tartrate 25 mg PO BID 02/13/19 09/29/19 tamsulosin 0.4 mg PO DAILY 02/13/19 09/29/19 lovastatin 20 mg PO DAILY 07/18/19 09/29/19 nitroglycerin 0.4 mg SUBLINGUAL PRN PRN 07/18/19 09/29/19 Allergies Allergy/AdvReac Type Severity Reaction Status Date / Time carbamazepine [From Tegretol] Allergy Unknown Verified 02/10/20 05:33 clindamycin Allergy Unknown Verified 02/10/20 05:33 Penicillins Allergy Unknown Verified 02/10/20 05:33 Review of Systems Constitutional: Constitutional: Reports no additional constitutional complaints Eyes: Eyes: Reports no additional eye complaints ENT: Reports system reviewed and no additional complaints, except as documented Cardiovascular: Cardiovascular: Reports no additional cardiovascular complaints Respiratory: Respiratory: Reports no additional respiratory complaints Gastrointestinal: Gastrointestinal: Reports no additional gastrointestinal complaints Genitourinary: Genitourinary: Reports no additional male genitourinary complaints Musculoskeletal: Musculoskeletal: Reports no additional musculoskeletal complaints Integumentary/Breasts: Skin/Breast: Reports system reviewed and no additional complaints, except as docu Neurologic: Reports system reviewed and no additional complaints, except as documented Psychiatric: Psychiatric: Reports no additional psychiatric complaints Endocrine: Endocrine: Reports no additional endocrine complaints Hematologic/Lymphatic: Hematologic/Lymphatic: Reports no additional hematologic/lymphatic complaints Allergic/Immunologic: Allergic/Immunologic: Reports no additional allergic/immunologic complaints [facility] Past Medical History Medical History BPH (benign prostatic hyperplasia) CAD (coronary artery disease) Diabetes mellitus Hypertension Type 2 diabetes mellitus Social History Social History Smoking status: Never smoker Alcohol intake: unknown Substance use: never Exam Const: General: cooperative Nutritional Appearance: average body habitus Orientation/consciousness: oriented to person, oriented to place and oriented to time HENMT: Head: normal to inspection, normocephalic and atraumatic Ears: hearing grossly impaired and unable to visualize TM Face and sinus: normal facial exam Mouth: Yes Normal oral and palatal mucosa present Throat: posterior oropharynx normal Eyes: General: appearance normal, both eyes and all related structures Conjunctivae: conjunctivae normal Neck: Neck: normal visual inspection Chest: Chest palpation & inspection: normal inspection of the chest Resp: Effort & Inspection: normal respiratory effort and able to speak in complete sentences Auscultation: clear to auscultation bilaterally Cardio: Rate: regular
[2020-02-29] MEDS: MAG HYDROX/ALUMINUM HYD/SIMETH 30 ML, PHENobarb/HYOSCY/ATROPINE/SCOP 32.4 MG, LIDOCAINE... PO (15:31)
[2020-02-29 15:48] LABS: Basophils Absolute Auto 0.06 K/mm3 (0.00-0.10); Basophils Percent Auto 0.6 % (0.0-1.0); Eosinophils Absolute Auto 0.22 K/mm3 (0.02-0.50); Eosinophils Percent Auto 2.1 % (1.0-6.0); Hematocrit 45.3 % (37.0-46.0); Hemoglobin 14.7 g/dL (12.4-15.3); Lymphocytes Absolute Auto 2.71 K/mm3 (1.10-4.50); Lymphocytes Percent Auto 26.4 % (18.0-42.0); Mean Corpuscular HGB Conc 32.5 g/dL (32.0-36.0); Mean Corpuscular Hemoglobin 30.9 pg (27.0-31.0); Mean Corpuscular Volume 95.2 fL (78.0-102.0); Mean Platelet Volume 10.8 fl (8.7-11.0); Monocytes Absolute Auto 0.69 K/mm3 (0.10-0.90); Monocytes Percent Auto 6.7 % (2.0-11.0); Neutrophils Absolute Auto 6.5 K/mm3 (1.7-7.2); Neutrophils Percent Auto 63.2 % (50.0-70.0); Platelet Count Result 250 K/mm3 (150-420); Red Blood Count 4.76 M/mm3 (4.70-6.10); Red Cell Distribution Width 12.5 % (11.6-14.4); White Blood Count 10.3 K/mm3 (4.8-10.8)
[2020-02-29 16:01] LABS: D Dimer 0.39 mg/L (0.19-0.50)
[2020-02-29 16:15] LABS: Alanine Aminotransferase 37 U/L (16-63); Albumin Level 3.7 g/dL (3.4-5.0); Alkaline Phosphatase 61 U/L (46-116); Anion Gap 9 mmol/L (8-16); Aspartate Amino Transferase 18 U/L (15-37); Bilirubin,Total 0.3 mg/dL (0.00-1.00); Blood Urea Nitrogen 15 mg/dL (7-18); Calcium 8.9 mg/dL (8.5-10.1); Carbon Dioxide 26 mmol/L (21-32); Chloride 104 mmol/L (98-108); Estimated Glomerular Filt Rate > 60; Glucose 104 mg/dL (70-99); Osmolality Calculated 288 mOsm/kg (285-295); Potassium 3.9 mmol/L (3.5-5.1); Sodium 139 mmol/L (136-145); Total Protein 6.9 g/dL (6.4-8.2); Troponin I 6.4 ng/L (0.00-60.4)
[2020-02-29 16:35] VITALS: BP 121/91; O2SAT 97
== END 2020-02-29 16:35 | disposition home or self-care (01) ==
PROVIDERS: Emergency Provider Emergency Medicine; PCP Family Medicine
DX: R07.9 Chest pain, unspecified (principal); K21.9 Gastro-esophageal reflux disease without esophagitis; I25.10 Atherosclerotic heart disease of native coronary artery without angina pectoris; I10 Essential (primary) hypertension; E11.9 Type 2 diabetes mellitus without complications
CPT/HCPCS: 36415; 71045; 80053; 84484; 85025; 85380; 93005; 99283; 99284; A9270

== ENCOUNTER 2020-07-03 08:37 | Outpatient (CLI) | payer MEDICARE, SELFPAY ==
[2020-07-03 09:59] LABS: SARS-CoV-2 RNA PCR Negative (Negative)
== END 2020-07-03 08:38 | disposition home or self-care (01) ==
LOC: CHSLAB 08:39
PROVIDERS: PCP Family Medicine; Visit Provider Internal Medicine Gastroenterology
DX: Z20.822 Contact with and (suspected) exposure to COVID-19 (principal); Z01.818 Encounter for other preprocedural examination
CPT/HCPCS: C9803; U0003; U0005

== ENCOUNTER 2020-07-06 00:30 | Day surgery (SDC) | payer MEDICARE, SELFPAY ==
[2020-06-23 15:23] VITALS: BMI 30.7
[2020-07-06 08:03] VITALS: BP 128/64; PULSE 74; RESP 18; TEMP 36.4; O2SAT 96; BMI 30.8
[2020-07-06 08:16] LABS: Glucose Point of Care 108 (65-105)
[2020-07-06] MEDS: LACTATED RINGERS 1,000 ML 150 ML IV CONT (08:16)
--- NOTE | 2020-07-06 08:25 | WPDANESEPPF ---
Anes - Initial Pre Proc Eval Procedure: Operation Date: 07/06/20 09:15 Proposed Procedures p Esophagogastroduodenoscopy - Vega Zamorano MD Date/Time: 07/06/20 08:25 Surgeon: Vega Zamorano MD Pre Op Diagnosis: GERD Patient Data Age: 69 Gender: M Height: 1.8 m Weight: 100.3 kg Last Vital Signs Temp 36.4 C L 07/06/20 08:03 Pulse 74 07/06/20 08:03 Resp 18 07/06/20 08:03 BP 128/64 07/06/20 08:03 Pulse Ox 96 07/06/20 08:03 Allergies Allergy/AdvReac Type Severity Reaction Status Date / Time Penicillins Allergy Unknown Unknown Verified 07/06/20 08:02 carbamazepine [From Tegretol] Allergy Unknown Verified 07/06/20 08:02 clindamycin Allergy Unknown Verified 07/06/20 08:02 Home Medications Medication Instructions Recorded Confirmed Type clopidogrel 75 mg PO DAILY 02/13/19 07/06/20 History finasteride 5 mg PO DAILY 02/13/19 07/06/20 History metformin 500 mg PO BID 02/13/19 07/06/20 History metoprolol tartrate 25 mg PO BID 02/13/19 07/06/20 History tamsulosin 0.4 mg PO DAILY 02/13/19 07/06/20 History lovastatin 20 mg PO DAILY 07/18/19 07/06/20 History nitroglycerin 0.4 mg SUBLINGUAL PRN PRN 07/18/19 07/06/20 History pantoprazole [Protonix] 40 mg PO HS #14 tablet 02/10/20 07/06/20 Rx Laboratory Tests 07/06/20 08:14 POC Capillary Glucose 108 mg/dl mg/dl (65-105) Patient hx anesthesia problems: none Family hx anesthesia problems: none PMFSH Past Medical History Medical History (Updated 07/05/20 @ 10:49 by Vaibhav Yang DO) Bloating BPH (benign prostatic hyperplasia) CAD (coronary artery disease) Colon cancer screening Diabetes mellitus Gastroesophageal reflux disease History of heart attack Hypertension Non-cardiac chest pain Tobacco abuse Type 2 diabetes mellitus Surgical History Surgical History (Updated 07/05/20 @ 10:49 by Vaibhav Yang DO) History of coronary artery stent placement x2 Social History Social History (Updated 05/18/20 @ 14:50 by Laly Lin CMA) Smoking packs per day: 1 Smoking cigarettes per day: 20.0 Smoking status: Current every day smoker Tobacco type: cigarettes Alcohol intake: never Substance use: current Substance use type: marijuana Living arrangements: alone Gender identity (if verbalized by the patient): Male Spiritual care concerns: No Anes - Eval Final PreProcedure Day of Procedure 07/06/20 08:25 Patient weight: obese Heart: regular rate and rhythm Lungs: clear to auscultation and normal air movement Airway: Mallampati scale and special considerations poor dentition (loose bottom front tooth - pt informed it may fall out during procedure) Neurological: alert and oriented Last oral intake: >/= 8 hours ASA classification: III Emergent: no Anesthetic plan: proceed Anesthesia type and monitoring: general GIVS and standard monitoring Informed Consent: The patient's anesthetic plan and its attendant risks and benefits were discussed with the patient/family/POA. Questions were solicited and answers provided to the satisfaction of the patient/family/POA.
--- NOTE | 2020-07-06 08:58 | PM.HPGS ---
History of Present Illness History of Present Illness Consent: Risks, benefits, and alternatives have been discussed and questions answered. Patient agrees to proceed with procedure. Chief complaint: GERD Narrative: Christopher Ramirez is a 69 year old male with bloating and intermittent chest pain Review of Systems Constitutional: Constitutional: Denies headache(s) and Denies weakness Eyes: Eyes: Denies blurry vision ENT: Reports Normal hearing present, Denies headache(s) and Denies neck pain Cardiovascular: Cardiovascular: Denies chest pain and Denies dyspnea Respiratory: Respiratory: Denies dyspnea Gastrointestinal: Gastrointestinal: Reports no additional gastrointestinal complaints Genitourinary: Genitourinary: Denies dysuria Musculoskeletal: Musculoskeletal: Denies neck pain Integumentary/Breasts: Skin/Breast: Denies dry skin Neurologic: Reports Normal hearing present, Denies headache(s) and Denies weakness Psychiatric: Psychiatric: Denies anxiety Endocrine: Endocrine: Denies change in body appearance Hematologic/Lymphatic: Hematologic/Lymphatic: Denies easy bleeding Allergic/Immunologic: Allergic/Immunologic: Denies urticaria PMF Past Medical History Medical History (Updated 07/05/20 @ 10:49 by Vaibhav Yang DO) Bloating BPH (benign prostatic hyperplasia) CAD (coronary artery disease) Colon cancer screening Diabetes mellitus Gastroesophageal reflux disease History of heart attack Hypertension Non-cardiac chest pain Tobacco abuse Type 2 diabetes mellitus Surgical History Surgical History (Updated 07/05/20 @ 10:49 by Vaibhav Yang DO) History of coronary artery stent placement x2 Social History Social History (Updated 05/18/20 @ 14:50 by Laly Lin [facility]) Smoking packs per day: 1 Smoking cigarettes per day: 20.0 Smoking status: Current every day smoker Tobacco type: cigarettes Alcohol intake: never Substance use: current Substance use type: marijuana Living arrangements: alone Gender identity (if verbalized by the patient): Male Spiritual care concerns: No Meds Home Medications and Allergies Home Medications Medication Instructions Recorded Confirmed Type clopidogrel 75 mg PO DAILY 02/13/19 07/06/20 History finasteride 5 mg PO DAILY 02/13/19 07/06/20 History metformin 500 mg PO BID 02/13/19 07/06/20 History metoprolol tartrate 25 mg PO BID 02/13/19 07/06/20 History tamsulosin 0.4 mg PO DAILY 02/13/19 07/06/20 History lovastatin 20 mg PO DAILY 07/18/19 07/06/20 History nitroglycerin 0.4 mg SUBLINGUAL PRN PRN 07/18/19 07/06/20 History pantoprazole [Protonix] 40 mg PO HS #14 tablet 02/10/20 07/06/20 Rx Allergies Allergy/AdvReac Type Severity Reaction Status Date / Time Penicillins Allergy Unknown Unknown Verified 07/06/20 08:02 carbamazepine [From Tegretol] Allergy Unknown Verified 07/06/20 08:02 clindamycin Allergy Unknown Verified 07/06/20 08:02 Vital Signs Vital Signs - 24 hr 07/06/20 08:03 Temperature 97.5 F L Pulse Rate 74 Respiratory Rate 18 Blood Pressure 128/64 Pulse Oximetry 96 Exam Const: General: comfortable and no acute distress HENMT: General nose exam: Normal nares present Eyes: General: appearance normal, both eyes and all related structures Neck: Neck: no JVD Resp: Auscultation: clear to auscultation bilaterally Cardio: Rate: regular rate Rhythm: regular rhythm GI: Inspection: non-distended GI Palp: Yes Soft to palpation Skin: General skin exam: normal color Neuro: General: gait normal Speech: normal speech Extrem: General: normal to inspection Psych: Mental Status: mental status grossly normal Assessment and Plan Assessment and plan (1) Bloating: Code(s): R14.0 - Abdominal distension (gaseous) Status: Acute Assessment and Plan: egd with bx (2) Non-cardiac chest pain: Code(s): R07.89 - Other chest pain Status: Acute
[2020-07-06] MEDS: BENZOCAINE (*SP) 60 ML SPRAY CAN (HURRICAINE) 1 SPRAY MUCOUS MEM (09:00)
[2020-07-06 09:10] VITALS: BP 120/77; PULSE 74; RESP 22; O2SAT 95
[2020-07-06 09:20] VITALS: BP 117/76; PULSE 68; RESP 20; O2SAT 96
[2020-07-06 09:30] VITALS: BP 120/80; PULSE 62; RESP 20; O2SAT 96
== END 2020-07-06 09:44 | disposition home or self-care (01) ==
PROVIDERS: PCP Family Medicine; Visit Provider Internal Medicine Gastroenterology
PROC: 0DJ08ZZ Inspection of Upper Intestinal Tract, Via Natural or Artificial Opening Endoscopic (ICD-10-PCS; CPT 43235; principal; 2020-07-06 09:15)
DX: R14.0 Abdominal distension (gaseous) (principal); K21.00 Gastro-esophageal reflux disease with esophagitis, without bleeding; R07.89 Other chest pain; K29.70 Gastritis, unspecified, without bleeding; I25.10 Atherosclerotic heart disease of native coronary artery without angina pectoris; N40.0 Benign prostatic hyperplasia without lower urinary tract symptoms; E11.9 Type 2 diabetes mellitus without complications; I25.2 Old myocardial infarction; I10 Essential (primary) hypertension; F17.210 Nicotine dependence, cigarettes, uncomplicated; Z95.5 Presence of coronary angioplasty implant and graft; Z79.84 Long term (current) use of oral hypoglycemic drugs
CPT/HCPCS: 43239; 82948; 88305; J2704; J7120

== ENCOUNTER 2020-08-02 01:14 | Emergency (ER) | payer MEDICARE, SELFPAY ==
--- NOTE | ~2020-08-02 | XR_ITS ---
EXAMINATION: XR chest 2V DATE: 08/02/2020 01:52 INDICATION: Chest pain. TECHNIQUE: Frontal and lateral views of the chest were obtained. COMPARISON: Chest single view 02/29/2020 FINDINGS: The chest demonstrates clear lungs without pneumonia, pleural effusion, or pneumothorax. Th e heart size is normal. IMPRESSION: 1. No acute cardiopulmonary disease. Reviewed, dictated and finalized at location A.
--- NOTE | 2020-08-02 01:23 | ECG_ITS ---
Measurements Intervals [place] Rate: 75 P: 33 VA: 160 QRS: 33 QRSD: 113 T: 43 QT: 395 QTc: 443 Interpretive Statements SINUS RHYTHM ATRIAL PREMATURE COMPLEXES INCOMPLETE RIGHT BUNDLE BRANCH BLOCK DELAYED PRECORDIAL R/S TRANSITION BORDERLINE ECG Electronically Signed On 08-02-2020 6:52:04 CDT by Raul Richmond D.O.
[2020-08-02 01:53] LABS: Basophils Absolute Auto 0.06 K/mm3 (0.00-0.10); Basophils Percent Auto 0.5 % (0.0-1.0); Eosinophils Absolute Auto 0.36 K/mm3 (0.02-0.50); Eosinophils Percent Auto 2.9 % (1.0-6.0); Hematocrit 45.3 % (37.0-46.0); Hemoglobin 15.2 g/dL (12.4-15.3); Immature Granulocyte Absolute 0.09 K/mm3 (0.00-0.00); Immature Granulocyte Percent A 0.7 % (0.0-0.0); Lymphocytes Absolute Auto 3.11 K/mm3 (1.10-4.50); Lymphocytes Percent Auto 25.1 % (18.0-42.0); Mean Corpuscular HGB Conc 33.6 g/dL (32.0-36.0); Mean Corpuscular Hemoglobin 31.9 pg (27.0-31.0); Mean Corpuscular Volume 95.2 fL (78.0-102.0); Mean Platelet Volume 10.8 fl (8.7-11.0); Monocytes Absolute Auto 0.89 K/mm3 (0.10-0.90); Monocytes Percent Auto 7.2 % (2.0-11.0); Neutrophils Absolute Auto 7.9 K/mm3 (1.7-7.2); Neutrophils Percent Auto 63.6 % (50.0-70.0); Platelet Count Result 240 K/mm3 (150-420); Red Blood Count 4.76 M/mm3 (4.70-6.10); Red Cell Distribution Width 12.6 % (11.6-14.4); White Blood Count 12.4 K/mm3 (4.8-10.8)
[2020-08-02 01:54] LABS: Appearance Urine Clear (Clear); Bilirubin Urine Negative (Negative); Color Urine Yellow (Yellow); Glucose Urine UA Negative (Negative); Ketones Urine Negative (Negative); Leukocyte Esterase Ur Negative LEU/UL (Negative); Nitrate Urine Negative (Negative); Protein Urine Negative (Negative); Urobilinogen Urine 0.2 mg/dL (0.2-1.0)
[2020-08-02 01:59] LABS: Add Urine Microscopic? YES; Bacteria Urine None seen /hpf; Blood Urine Trace-Intact (Negative); RBC Urine None seen /hpf (0-2); Squamous Epithelial Cell Urine Rare /hpf (Few); WBC Urine None seen /hpf (0-3)
[2020-08-02 02:00] VITALS: BP 133/67; PULSE 84; RESP 18; TEMP 37.1; O2SAT 97
[2020-08-02 02:05] LABS: Partial Thromboplastin Time 26.2 SEC (23.90-30.70); Prothrombin Time 10.3 Seconds (9.50-12.10)
[2020-08-02 02:06] LABS: D Dimer 0.49 mg/L (0.19-0.50)
[2020-08-02 02:13] LABS: Alanine Aminotransferase 32 U/L (16-63); Albumin Level 3.7 g/dL (3.4-5.0); Alkaline Phosphatase 76 U/L (46-116); Anion Gap 8 mmol/L (8-16); Aspartate Amino Transferase 13 U/L (15-37); Bilirubin,Total 0.3 mg/dL (0.00-1.00); Blood Urea Nitrogen 17 mg/dL (7-18); Calcium 9.1 mg/dL (8.5-10.1); Carbon Dioxide 29 mmol/L (21-32); Chloride 105 mmol/L (98-108); Estimated Glomerular Filt Rate > 60; Glucose 100 mg/dL (70-99); Lipase 99 U/L (73-393); NT Pro B Type Natriuretic Pept 113 pg/mL (0-125); Osmolality Calculated 295 mOsm/kg (285-295); Sodium 142 mmol/L (136-145); Total Protein 7.4 g/dL (6.4-8.2)
[2020-08-02 02:30] LABS: Troponin I 11.3 ng/L (0.00-60.4)
[2020-08-02 02:32] VITALS: PULSE 84
[2020-08-02] MEDS: ASPIRIN 81 MG CHEWABLE TABLET 324 MG PO (02:49)
[2020-08-02] MEDS: NITROGLYCERIN SL 0.4 MG TABLET SUBLINGUAL ×2 (02:49→02:54)
[2020-08-02] MEDS: SODIUM CHLORIDE 0.9% IV 1,000 ML 999 ML IV CONT (02:49)
[2020-08-02 02:50] VITALS: BP 124/65; PULSE 78; RESP 20; O2SAT 98
[2020-08-02] MEDS: MAG HYDROX/ALUMINUM HYD/SIMETH 30 ML, PHENobarb/HYOSCY/ATROPINE/SCOP 32.4 MG, LIDOCAINE... PO (03:13)
--- NOTE | 2020-08-02 03:34 | ED.CHESTPAIN ---
HPI - Chest Pain General Chief Complaint: Chest Pain Stated Complaint: CHEST PAIN Source: patient Mode of arrival: ambulatory Limitations: no limitations History of Present Illness HPI narrative: this is 69-year-old gentleman with a history of heart disease with stents, and history of reflux disease recently had a endoscopy and awaiting endoscopy results, presents with some chest discomfort pressure like sensation with epigastric fullness with no nausea or vomiting no diaphoresis no shortness of breath no fever or chills. Patient rates his pain about 6/10, currently is on pantoprazole for reflux and had a recent EGD performed approximately 1 week ago. MD complaint: chest pain and chest discomfort Pertinent past history: coronary artery disease Onset (ago): day(s) Timing of current episode: episodic Prior episodes: Yes Onset: during rest and after eating Pain location: right chest Pain radiation: none Severity: moderate Pain scale (0-10): 6 Quality: tightness and sharp Relieving factors: nitroglycerin and antacids Exacerbating factors: nothing Related Data Home Medications Medication Instructions Recorded Confirmed clopidogrel 75 mg PO DAILY 02/13/19 08/02/20 finasteride 5 mg PO DAILY 02/13/19 08/02/20 metformin 500 mg PO BID 02/13/19 08/02/20 metoprolol tartrate 25 mg PO BID 02/13/19 08/02/20 tamsulosin 0.4 mg PO DAILY 02/13/19 08/02/20 lovastatin 20 mg PO DAILY 07/18/19 08/02/20 nitroglycerin 0.4 mg SUBLINGUAL PRN PRN 07/18/19 08/02/20 Allergies Allergy/AdvReac Type Severity Reaction Status Date / Time Penicillins Allergy Unknown Unknown Verified 07/06/20 08:02 carbamazepine [From Tegretol] Allergy Unknown Verified 07/06/20 08:02 clindamycin Allergy Unknown Verified 07/06/20 08:02 Review of Systems Review of Systems: All systems reviewed & are unremarkable except as noted in HPI and below PMFSH Past Medical History Medical History Bloating BPH (benign prostatic hyperplasia) CAD (coronary artery disease) Colon cancer screening Diabetes mellitus Gastroesophageal reflux disease History of heart attack Hypertension Non-cardiac chest pain Tobacco abuse Type 2 diabetes mellitus Surgical History Surgical History History of coronary artery stent placement x2 Social History Social History Smoking packs per day: 1 Smoking cigarettes per day: 20.0 Smoking status: Current every day smoker Tobacco type: cigarettes Alcohol intake: never Substance use: current Substance use type: marijuana Gender identity (if verbalized by the patient): Male Spiritual care concerns: No Exam Const: General: no acute distress Orientation/consciousness: patient oriented x3 HENMT: Head: normal to inspection Eyes: Conjunctivae: conjunctivae normal Pupils: Equal, round and reactive pupils present Neck: Neck: normal visual inspection and no lymphadenopathy Chest: Chest palpation & inspection: normal inspection of the chest Resp: Effort & Inspection: normal respiratory effort Cardio: Rate: regular rate Rhythm: regular rhythm GI: GI Palp: Yes Soft to palpation Other: Epigastric tenderness with palpation Urinary Catheter: Urinary Catheter: patent and draining Back/Spine/Pelvis: Back: no CVA tenderness Skin: General skin exam: normal color Rashes: no rashes Neuro: General: patient oriented x3 and moves all extremities Extrem: General: normal to inspection and no pedal edema Psych: Mental Status: mental status grossly normal Affect: normal affect Attitude: cooperative Course Course Emergency Course: patient reassessment of his chest discomfort after receiving nitroglycerin offered some mild relief, subsequently GI cocktail relieved his pain down to 1/6, is currently on pantoprazole advised patient to take pantoprazole twice
[2020-08-02 03:55] VITALS: BP 105/58; PULSE 67; RESP 20; TEMP 36.3; O2SAT 98
[2020-08-02 03:57] VITALS: BP 105/67; PULSE 68
== END 2020-08-02 03:55 | disposition home or self-care (01) ==
PROVIDERS: Emergency Provider Emergency Medicine; PCP Family Medicine
DX: R07.89 Other chest pain (principal); K21.9 Gastro-esophageal reflux disease without esophagitis; I25.10 Atherosclerotic heart disease of native coronary artery without angina pectoris; E11.9 Type 2 diabetes mellitus without complications; I10 Essential (primary) hypertension; F17.200 Nicotine dependence, unspecified, uncomplicated
CPT/HCPCS: 36415; 71046; 80053; 81001; 83690; 83880; 84484; 85025; 85380; 85610; 85730; 93005; 96360; 99283; 99284; A9270; J7030

== ENCOUNTER 2020-11-14 01:04 | Emergency (ER) | payer MEDICARE, SELFPAY ==
--- NOTE | ~2020-11-14 | XR_ITS ---
EXAMINATION: XR chest 1V portable EXAM DATE: 11/14/2020 02:11 INDICATION: Syncope. TECHNIQUE: Portable AP frontal chest x-ray was obtained. Comparison is made to prior examination from 08/02/2020. FINDINGS: The lungs are clear. There are no pleural effusions. Cardiac silhouette is prominent but magnified on this AP technique. There is no pneumothorax suspected. The bones and soft tissues are unremarkable. IMPRESSION: No acute cardiopulmonary findings. Reviewed, dictated and finalized at location A.
--- NOTE | ~2020-11-14 | CT_ITS ---
EXAMINATION: CT brain wo con EXAM DATE: 11/14/2020 02:11 INDICATION: Dizziness. Syncope. TECHNIQUE: Spiral CT of the head was performed without contrast. Axial, coronal and sagittal images were reviewed. The dose-length product (DLP) for this examination was 681.00 mGy-cm. The exposure w as tailored according to patient size, and iterative reconstruction (ASIR) was used as additional dos e reduction technique. Comparison is made to prior examination from 08/20/2018. FINDINGS: Posterior calvarial surgical changes. Mild atrophy. There is no acute intraparenchymal hemo rrhage. No evidence of intraparenchymal brain mass lesion. No evidence of acute infarction. There is no mass effect or midline shift. The ventricles are normal in size. There are no extra-axial col lections. There are no acute calvarial fractures. There is an old left medial orbital wall fracture. Soft tissue is unremarkable. Mild ethmoid, left maxillary sinus opacity. IMPRESSION: 1. No acute intracranial findings. Reviewed, dictated and finalized at location A.
[2020-11-14 01:05] VITALS: BP 133/66; PULSE 90; RESP 20; TEMP 36.5; O2SAT 94
--- NOTE | 2020-11-14 01:15 | ECG_ITS ---
Measurements Intervals [place] Rate: 89 P: 32 VA: 146 QRS: -18 QRSD: 111 T: 68 QT: 360 QTc: 439 Interpretive Statements SINUS RHYTHM INTRAVENTRICULAR CONDUCTION DELAY BORDERLINE ST-T WAVE ABNORMALITY- HIGH LATERAL LEADS BORDERLINE ECG Electronically Signed On 11-15-2020 7:54:50 CDT by Raul Richmond D.O.
[2020-11-14] MEDS: SODIUM CHLORIDE 0.9% IV 1,000 ML 999 ML IV CONT (01:37)
[2020-11-14] MEDS: PANTOPRAZOLE SODIUM IV 40 MG VIAL IV PUSH (01:38)
[2020-11-14] MEDS: MECLIZINE HCL 25 MG TABLET PO (01:38)
[2020-11-14 01:46] LABS: Basophils Absolute Auto 0.07 K/mm3 (0.00-0.10); Basophils Percent Auto 0.6 % (0.0-1.0); Eosinophils Absolute Auto 0.41 K/mm3 (0.02-0.50); Eosinophils Percent Auto 3.5 % (1.0-6.0); Hematocrit 43.4 % (37.0-46.0); Hemoglobin 14.7 g/dL (12.4-15.3); Immature Granulocyte Percent A 0.8 % (0.0-0.0); Lymphocytes Absolute Auto 3.58 K/mm3 (1.10-4.50); Lymphocytes Percent Auto 30.4 % (18.0-42.0); Mean Corpuscular HGB Conc 33.9 g/dL (32.0-36.0); Mean Corpuscular Hemoglobin 32.2 pg (27.0-31.0); Mean Platelet Volume 10.8 fl (8.7-11.0); Monocytes Absolute Auto 0.91 K/mm3 (0.10-0.90); Monocytes Percent Auto 7.7 % (2.0-11.0); Neutrophils Absolute Auto 6.7 K/mm3 (1.7-7.2); Platelet Count Result 236 K/mm3 (150-420); Red Blood Count 4.57 M/mm3 (4.70-6.10); Red Cell Distribution Width 12.8 % (11.6-14.4); White Blood Count 11.8 K/mm3 (4.8-10.8)
[2020-11-14 02:00] VITALS: BP 131/68; PULSE 86; RESP 20; O2SAT 94
[2020-11-14 02:08] LABS: Alanine Aminotransferase 33 U/L (16-63); Albumin Level 3.4 g/dL (3.4-5.0); Alkaline Phosphatase 111 U/L (46-116); Anion Gap 7 mmol/L (8-16); Aspartate Amino Transferase 13 U/L (15-37); Bilirubin,Total 0.2 mg/dL (0.00-1.00); Blood Urea Nitrogen 17 mg/dL (7-18); Calcium 8.5 mg/dL (8.5-10.1); Carbon Dioxide 29 mmol/L (21-32); Chloride 108 mmol/L (98-108); Estimated CRCL calculation 75 ml/min; Estimated Glomerular Filt Rate > 60; Glucose 133 mg/dL (70-99); Osmolality Calculated 301 mOsm/kg (285-295); Potassium 3.7 mmol/L (3.5-5.1); Sodium 144 mmol/L (136-145); Total Protein 6.4 g/dL (6.4-8.2)
[2020-11-14 02:10] LABS: Lipase 101 U/L (73-393); NT Pro B Type Natriuretic Pept 70 pg/mL (0-125); Troponin I 8.3 ng/L (0.00-60.4)
[2020-11-14 02:23] LABS: Add Urine Microscopic? NO; Appearance Urine Clear (Clear); Bilirubin Urine Negative (Negative); Blood Urine Negative (Negative); Color Urine Light Yellow (Yellow); Glucose Urine UA Negative (Negative); Ketones Urine Negative (Negative); Leukocyte Esterase Ur Negative (Negative); Nitrate Urine Negative (Negative); Protein Urine Negative (Negative); Urobilinogen Urine 0.2 mg/dL (0.2-1.0)
--- NOTE | 2020-11-14 02:44 | ED.SYNCOPE ---
HPI - Syncope General Chief Complaint: Syncope Stated Complaint: Chest Pain Source: patient and EMS Mode of arrival: ambulatory Limitations: no limitations History of Present Illness HPI narrative: 70-year-old male presents after was late night talking to his neighbor and and became dizzy and dropped to his knees did not have a syncopal episode currently no headache no fever or chills no shortness of breath does have reflux symptoms and having some burning sensation in his epigastric area there is no abdominal pain no diarrhea constipation no nausea or vomiting. complaint: almost passed out Onset (ago): hour(s) Related Data Home Medications Medication Instructions Recorded Confirmed finasteride 5 mg PO DAILY 02/13/19 11/14/20 metformin 500 mg PO BID 02/13/19 11/14/20 metoprolol tartrate 25 mg PO BID 02/13/19 11/14/20 tamsulosin 0.4 mg PO DAILY 02/13/19 11/14/20 lovastatin 20 mg PO DAILY 07/18/19 11/14/20 nitroglycerin 0.4 mg SUBLINGUAL PRN PRN 07/18/19 11/14/20 aspirin [Adult Low Dose Aspirin] 81 mg PO DAILY 11/14/20 11/14/20 meclizine 25 mg PO PRN PRN 11/14/20 11/14/20 Allergies Allergy/AdvReac Type Severity Reaction Status Date / Time Penicillins Allergy Unknown Unknown Verified 07/06/20 08:02 carbamazepine [From Tegretol] Allergy Unknown Verified 07/06/20 08:02 clindamycin Allergy Unknown Verified 07/06/20 08:02 Review of Systems Review of Systems: All systems reviewed & are unremarkable except as noted in HPI and below PMFSH Past Medical History Medical History Bloating BPH (benign prostatic hyperplasia) CAD (coronary artery disease) Colon cancer screening Diabetes mellitus Gastroesophageal reflux disease History of heart attack Hypertension Non-cardiac chest pain Tobacco abuse Type 2 diabetes mellitus Surgical History Surgical History History of coronary artery stent placement x2 Social History Social History Smoking packs per day: 1 Smoking cigarettes per day: 20.0 Smoking status: Current every day smoker Tobacco type: cigarettes Alcohol intake: never Substance use: current Substance use type: marijuana Gender identity (if verbalized by the patient): Male Spiritual care concerns: No Exam Const: General: no acute distress and alert Orientation/consciousness: patient oriented x3 HENMT: Head: normal to inspection Eyes: Conjunctivae: conjunctivae normal Pupils: Equal, round and reactive pupils present Resp: Effort & Inspection: normal respiratory effort Auscultation: clear to auscultation bilaterally Cardio: Rate: regular rate GI: Auscultation: normal bowel sounds Urinary Catheter: Urinary Catheter: patent and draining Back/Spine/Pelvis: Back: no CVA tenderness Extrem: General: normal to inspection Psych: Mental Status: mental status grossly normal Affect: normal affect Attitude: cooperative Course Course Emergency Course: Patient has had improved with IV fluids and meclizine and Protonix labs and CT and chest x-ray reviewed with patient Vital Signs Vital signs: Vital Signs Temperature 36.5 C 11/14/20 01:05 Pulse Rate 90 11/14/20 01:05 Respiratory Rate 20 11/14/20 01:05 Blood Pressure 133/66 11/14/20 01:05 Pulse Oximetry 94 11/14/20 01:05 Temperature 36.5 C 11/14/20 01:05 Pulse Rate 90 11/14/20 01:05 Respiratory Rate 20 11/14/20 01:05 Blood Pressure 133/66 11/14/20 01:05 Pulse Oximetry 94 11/14/20 01:05 MDM - Syncope Lab Data Result diagrams: 11/14/20 01:43 11/14/20 01:43 Labs: Lab Results 11/14/20 11/14/20 11/14/20 Range/Units 01:43 01:43 01:43 WBC 11.8 H (4.8-10.8) K/mm3 RBC 4.57 L (4.70-6.10) M/mm3 Hgb 14.7 (12.4-15.3) g/dL Hct 43.4 (37.0-46.0) % MCV 95.0 (78.0-102.0) fL
[2020-11-14 02:54] VITALS: BP 140/76; PULSE 77; RESP 18; TEMP 36.3; O2SAT 96
== END 2020-11-14 03:09 | disposition home or self-care (01) ==
PROVIDERS: Emergency Provider Emergency Medicine; PCP Family Medicine
DX: R55 Syncope and collapse (principal); R42 Dizziness and giddiness; I25.10 Atherosclerotic heart disease of native coronary artery without angina pectoris; E11.9 Type 2 diabetes mellitus without complications; K21.9 Gastro-esophageal reflux disease without esophagitis; I10 Essential (primary) hypertension; F17.200 Nicotine dependence, unspecified, uncomplicated
CPT/HCPCS: 36415; 70450; 71045; 80053; 81003; 83690; 83880; 84484; 85025; 93005; 96361; 96374; 99283; 99284; A9270; C9113; J7030

== ENCOUNTER 2020-12-03 16:48 | Emergency (ER) | payer MEDICARE, SELFPAY ==
--- NOTE | ~2020-12-03 | XR_ITS ---
EXAMINATION: XR chest 2V DATE: 12/03/2020 17:46 INDICATION: Inhalational injury TECHNIQUE: PA and lateral views of the chest are obtained. COMPARISON: 11/14/2020 FINDINGS: The lungs are free of acute opacities. There is no pleural effusion or pneumothorax. The ca rdiomediastinal silhouette is normal. There are bridging osteophytes at multiple levels in the spine, consistent with diffuse idiopathic skeletal hyperostosis (DISH). IMPRESSION: 1. No acute cardiopulmonary abnormality. Reviewed, dictated and finalized at location A.
--- NOTE | 2020-12-03 16:54 | ED.GENADULT ---
HPI - General Adult General Chief complaint: Environmental Exposure Stated complaint: bug spray to the face Time Seen by Provider: 12/03/20 16:54 Source: patient Mode of arrival: ambulatory Limitations: no limitations History of Present Illness HPI narrative: 70-year-old man with the history of coronary artery disease, GERD, type 2 diabetes, and long-time smoking comes in today complaining of shortness of breath and throat discomfort after he inhaled the spray from a ?bug bomb?. He was standing over the can when the ?[employer]? went off sprain [place] the patient's chest. He states he had his eyes closed and did not have eye exposure. He denies any eye irritation. He denies chest pain but has some nausea. He states that he washed his face after the exposure. He does not use inhalers. MD complaint: Insecticide inhalation Onset (ago): minute(s) (20) Location: face and mouth Radiation: non-radiation Severity: moderate Relieving factors: none Exacerbating factors: none Associated symptoms: cough, shortness of breath and other (Throat discomfort) Treatments prior to arrival: other (Washed face and neck.) Related Data Home Medications Medication Instructions Recorded Confirmed finasteride 5 mg PO DAILY 02/13/19 12/03/20 metformin 500 mg PO BID 02/13/19 12/03/20 metoprolol tartrate 25 mg PO BID 02/13/19 12/03/20 tamsulosin 0.4 mg PO DAILY 02/13/19 12/03/20 lovastatin 20 mg PO DAILY 07/18/19 12/03/20 nitroglycerin 0.4 mg SUBLINGUAL PRN PRN 07/18/19 12/03/20 aspirin [Adult Low Dose Aspirin] 81 mg PO DAILY 11/14/20 12/03/20 meclizine 25 mg PO PRN PRN 11/14/20 12/03/20 Allergies Allergy/AdvReac Type Severity Reaction Status Date / Time Penicillins Allergy Unknown Unknown Verified 07/06/20 08:02 carbamazepine [From Tegretol] Allergy Unknown Verified 07/06/20 08:02 clindamycin Allergy Unknown Verified 07/06/20 08:02 Review of Systems Constitutional: Constitutional: Denies chills and Denies fever(s) Eyes: Eyes: Denies change in vision and Denies photophobia ENT: Denies nasal congestion and Reports sore throat Cardiovascular: Cardiovascular: Denies chest pain and Denies radiating jaw, neck or arm pain Respiratory: Respiratory: Denies chest congestion, Reports cough, Reports dyspnea and Denies wheezing Gastrointestinal: Gastrointestinal: Denies abdominal pain, Reports nausea and Denies vomiting Musculoskeletal: Musculoskeletal: Denies arthralgias and Denies joint swelling Integumentary/Breasts: Skin/Breast: Denies pruritus, Denies erythema and Denies rash Neurologic: Denies vertigo, Denies dizziness and Denies syncope Hematologic/Lymphatic: Hematologic/Lymphatic: Denies easy bleeding and Denies easy bruising Allergic/Immunologic: Allergic/Immunologic: Denies lip swelling, Denies throat swelling and Denies tongue swelling PMFSH Past Medical History Medical History Bloating BPH (benign prostatic hyperplasia) CAD (coronary artery disease) Colon cancer screening Diabetes mellitus Gastroesophageal reflux disease History of heart attack Hypertension Non-cardiac chest pain Tobacco abuse Type 2 diabetes mellitus Surgical History Surgical History History of coronary artery stent placement x2 Social History Social History Smoking packs per day: 1 Smoking cigarettes per day: 20.0 Smoking status: Current every day smoker Tobacco type: cigarettes Alcohol intake: never Substance use: current Substance use type: marijuana Gender identity (if verbalized by the patient): Male Spiritual care concerns: No Exam Const: General: healthy appearing and alert Orientation/consciousness: patient oriented x3 Limitations: no limitations Other: Mild acute distress. HENMT: Ears: external ears normal and EAC's normal Face and
[2020-12-03 17:00] VITALS: BP 133/83; PULSE 126; RESP 22; TEMP 37.2; O2SAT 96
[2020-12-03 17:17] VITALS: PULSE 122; RESP 22; O2SAT 96
[2020-12-03] MEDS: ONDANSETRON HCL ODT 4 MG TABLET PO (17:17)
[2020-12-03] MEDS: IPRATROPIUM 0.5 MG/ALBUTEROL SULFATE 2.5 MG AMPUL.NEB 3 ML INHALATION (17:17)
[2020-12-03 17:30] VITALS: RESP 20; O2SAT 98
[2020-12-03 17:30] LABS: Base Excess ABG 0.6 mmol/L (0-2); Carboxyhemoglobin 6.9 % (0-1.5); HCO3 ABG 23.9 mmol/L (23-29); Methemoglobin ABG 0.5 % (0-1.5); Modified Allen's Test Pass; Oxygen Content ABG 21.6 %vol (16.0-22.0); Oxygen Saturation ABG 98.8 % (95-97); Oxyhemoglobin 91.5 % (94-100); PCO2 ABG 34.9 mmHg (35-45); PO2 ABG 290.3 mmHg (75-85); Reduced Hemoglobin 1.1 % (0-1.5); Site Drawn LEFT RADIAL; Total Hemoglobin 16.3 g/dL (12.0-18.0); pH ABG 7.45 (7.35-7.45)
[2020-12-03 17:31] LABS: Device NASAL CANNULA
[2020-12-03 17:33] LABS: Basophils Absolute Auto 0.11 K/mm3 (0.00-0.10); Basophils Percent Auto 0.7 % (0.0-1.0); Eosinophils Absolute Auto 0.41 K/mm3 (0.02-0.50); Eosinophils Percent Auto 2.6 % (1.0-6.0); Hematocrit 47.4 % (37.0-46.0); Hemoglobin 15.9 g/dL (12.4-15.3); Immature Granulocyte Absolute 0.14 K/mm3 (0.00-0.00); Immature Granulocyte Percent A 0.9 % (0.0-0.0); Lymphocytes Absolute Auto 4.61 K/mm3 (1.10-4.50); Lymphocytes Percent Auto 29.3 % (18.0-42.0); Mean Corpuscular HGB Conc 33.5 g/dL (32.0-36.0); Mean Corpuscular Hemoglobin 31.5 pg (27.0-31.0); Mean Platelet Volume 10.9 fl (8.7-11.0); Monocytes Percent Auto 6.3 % (2.0-11.0); Neutrophils Absolute Auto 9.5 K/mm3 (1.7-7.2); Neutrophils Percent Auto 60.2 % (50.0-70.0); Platelet Count Result 291 K/mm3 (150-420); Red Blood Count 5.04 M/mm3 (4.70-6.10); White Blood Count 15.8 K/mm3 (4.8-10.8)
[2020-12-03 17:44] LABS: Alanine Aminotransferase 43 U/L (16-63); Albumin Level 3.8 g/dL (3.4-5.0); Alkaline Phosphatase 70 U/L (46-116); Anion Gap 12 mmol/L (8-16); Aspartate Amino Transferase 17 U/L (15-37); Bilirubin,Total 0.4 mg/dL (0.00-1.00); Blood Urea Nitrogen 19 mg/dL (7-18); Carbon Dioxide 26 mmol/L (21-32); Chloride 107 mmol/L (98-108); Estimated CRCL calculation 56 ml/min; Estimated Glomerular Filt Rate > 60; Glucose 166 mg/dL (70-99); Osmolality Calculated 306 mOsm/kg (285-295); Sodium 145 mmol/L (136-145)
[2020-12-03 18:16] LABS: SARS-CoV-2 RNA PCR Negative (Negative)
[2020-12-03 18:27] VITALS: BP 143/73; PULSE 88; RESP 16; O2SAT 92
--- NOTE | 2020-12-03 19:09 | PC.NURSE ---
Friend, Taye called to take pt home.
[2020-12-03 19:10] VITALS: BP 127/77; PULSE 90; RESP 18; O2SAT 94
== END 2020-12-03 19:14 | disposition home or self-care (01) ==
PROVIDERS: Emergency Provider Emergency Medicine; PCP Family Medicine
DX: T60.2X1A Toxic effect of other insecticides, accidental (unintentional), initial encounter (principal); I25.10 Atherosclerotic heart disease of native coronary artery without angina pectoris; K21.9 Gastro-esophageal reflux disease without esophagitis; E11.9 Type 2 diabetes mellitus without complications; F17.210 Nicotine dependence, cigarettes, uncomplicated; N40.0 Benign prostatic hyperplasia without lower urinary tract symptoms; I10 Essential (primary) hypertension; I25.2 Old myocardial infarction; Z20.822 Contact with and (suspected) exposure to COVID-19
CPT/HCPCS: 36415; 36600; 71046; 80053; 82375; 82805; 83050; 85025; 94640; 99283; A9270; C9803; U0003; U0005

== ENCOUNTER 2021-04-28 18:00 | Emergency (ER) | payer MEDICARE, SELFPAY ==
--- NOTE | ~2021-04-28 | XR_ITS ---
EXAMINATION: XR chest 1V portable INDICATION: Central chest pain TECHNIQUE: Portable AP chest at 1817 hours COMPARISON: 12/03/2020 FINDINGS: There is mild atelectasis of the lung bases. No pleural effusion or pneumothorax is identif ied. The cardiomediastinal silhouette is normal. IMPRESSION: 1. Mild atelectasis of the lung bases. Reviewed, dictated and finalized at location F. ENT REGISTRATION REPRESENTATIVE
--- NOTE | 2021-04-28 18:04 | ECG_ITS ---
Measurements Intervals [place] Rate: 78 P: 25 NM: 150 QRS: -12 QRSD: 109 T: 71 QT: 377 QTc: 431 Interpretive Statements SINUS RHYTHM FREQUENT ATRIAL PREMATURE COMPLEXES DELAYED PRECORDIAL R/S TRANSITION ABNORMAL ECG Electronically Signed On 04-28-2021 18:29:46 [employer] by Raul Richmond D.O.
[2021-04-28 18:11] VITALS: BP 143/69; PULSE 72; RESP 18; TEMP 37; O2SAT 94
[2021-04-28] MEDS: SODIUM CHLORIDE 0.9% IV 500 ML 999 ML IV CONT (18:20)
[2021-04-28 18:23] LABS: Basophils Absolute Auto 0.06 K/mm3 (0.00-0.10); Basophils Percent Auto 0.5 % (0.0-1.0); Eosinophils Absolute Auto 0.23 K/mm3 (0.02-0.50); Eosinophils Percent Auto 1.8 % (1.0-6.0); Hematocrit 46.5 % (37.0-46.0); Hemoglobin 15.7 g/dL (12.4-15.3); Immature Granulocyte Absolute 0.07 K/mm3 (0.00-0.00); Immature Granulocyte Percent A 0.5 % (0.0-0.0); Lymphocytes Absolute Auto 2.75 K/mm3 (1.10-4.50); Lymphocytes Percent Auto 21.4 % (18.0-42.0); Mean Corpuscular HGB Conc 33.8 g/dL (32.0-36.0); Mean Corpuscular Hemoglobin 32.1 pg (27.0-31.0); Mean Corpuscular Volume 95.1 fL (78.0-102.0); Mean Platelet Volume 10.8 fl (8.7-11.0); Monocytes Percent Auto 6.2 % (2.0-11.0); Neutrophils Absolute Auto 8.9 K/mm3 (1.7-7.2); Neutrophils Percent Auto 69.6 % (50.0-70.0); Platelet Count Result 264 K/mm3 (150-420); Red Blood Count 4.89 M/mm3 (4.70-6.10); Red Cell Distribution Width 12.8 % (11.6-14.4); White Blood Count 12.8 K/mm3 (4.8-10.8)
[2021-04-28 18:42] LABS: Alanine Aminotransferase 36 U/L (16-63); Albumin Level 3.7 g/dL (3.4-5.0); Alkaline Phosphatase 77 U/L (46-116); Anion Gap 10 mmol/L (8-16); Aspartate Amino Transferase 21 U/L (15-37); Bilirubin,Total 0.4 mg/dL (0.00-1.00); Blood Urea Nitrogen 19 mg/dL (7-18); Carbon Dioxide 25 mmol/L (21-32); Chloride 106 mmol/L (98-108); Estimated CRCL calculation 71 ml/min; Estimated Glomerular Filt Rate > 60; Glucose 98 mg/dL (70-99); Osmolality Calculated 294 mOsm/kg (285-295); Potassium 4.2 mmol/L (3.5-5.1); Sodium 141 mmol/L (136-145); Total Protein 6.9 g/dL (6.4-8.2)
[2021-04-28 18:44] LABS: Lactic Acid Reflex 1.2 mmol/L (0.4-2.0)
[2021-04-28] MEDS: MAG HYDROX/ALUMINUM HYD/SIMETH 30 ML, PHENobarb/HYOSCY/ATROPINE/SCOP 32.4 MG, LIDOCAINE... PO (18:55)
[2021-04-28 19:09] LABS: SARS-CoV-2 Ag Negative (Negative)
--- NOTE | 2021-04-28 19:47 | ED.CHESTPAIN ---
HPI - Chest Pain General Chief Complaint: Chest Pain Stated Complaint: chest pain Time Seen by Provider: 04/28/21 18:04 Source: patient and RN notes reviewed Mode of arrival: ambulatory Limitations: no limitations History of Present Illness complaint: chest pain Onset (ago): day(s) (2) Prior episodes: Yes Onset: during rest Pain location: substernal Pain radiation: abdomen Severity: mild Pain scale (0-10): 5 Quality: aching and dull Relieving factors: nothing Exacerbating factors: nothing Associated symptoms: nausea Treatment prior to arrival: none Risk Factors Coronary artery disease risk factors: diabetes, hyperlipidemia and hypertension Related Data Home Medications Medication Instructions Recorded Confirmed finasteride 5 mg PO DAILY 02/13/19 04/28/21 metformin 500 mg PO BID 02/13/19 04/28/21 metoprolol tartrate 25 mg PO BID 02/13/19 04/28/21 tamsulosin 0.4 mg PO DAILY 02/13/19 04/28/21 lovastatin 20 mg PO DAILY 07/18/19 04/28/21 nitroglycerin 0.4 mg SUBLINGUAL PRN PRN 07/18/19 04/28/21 aspirin [Adult Low Dose Aspirin] 81 mg PO DAILY 11/14/20 04/28/21 meclizine 25 mg PO PRN PRN 11/14/20 04/28/21 Allergies Allergy/AdvReac Type Severity Reaction Status Date / Time Penicillins Allergy Unknown Unknown Verified 07/06/20 08:02 carbamazepine [From Tegretol] Allergy Unknown Verified 07/06/20 08:02 clindamycin Allergy Unknown Verified 07/06/20 08:02 Review of Systems Review of Systems: All systems reviewed & are unremarkable except as noted in HPI and below PMFSH Past Medical History Medical History Bloating BPH (benign prostatic hyperplasia) CAD (coronary artery disease) Colon cancer screening Diabetes mellitus Gastroesophageal reflux disease History of heart attack Hypertension Non-cardiac chest pain Tobacco abuse Type 2 diabetes mellitus Surgical History Surgical History History of coronary artery stent placement x2 Social History Social History Smoking packs per day: 1 Smoking cigarettes per day: 20.0 Smoking status: Current every day smoker Tobacco type: cigarettes Alcohol intake: never Substance use: current Substance use type: marijuana Gender identity (if verbalized by the patient): Male Spiritual care concerns: No Exam Const: General: no acute distress and alert Orientation/consciousness: patient oriented x3 Limitations: no limitations HENMT: Head: normal to inspection Ears: external ears normal, TM's normal bilaterally and EAC's normal General nose exam: Normal external nose present and Normal nares present Face and sinus: sinuses nontender Mouth: Yes moist mucous membranes Eyes: Conjunctivae: conjunctivae normal Pupils: Equal, round and reactive pupils present EOM: EOMs intact bilaterally Neck: Neck: normal visual inspection Chest: Chest palpation & inspection: normal inspection of the chest Resp: Effort & Inspection: normal respiratory effort Auscultation: clear to auscultation bilaterally Cardio: Rate: regular rate Rhythm: regular rhythm GI: GI Palp: Yes Soft to palpation and No Tenderness to palpation present (GI) Auscultation: normal bowel sounds : General: Yes bladder normal to palpation and Yes no CVA tenderness Back/Spine/Pelvis: Back: no CVA tenderness Skin: General skin exam: normal color Rashes: no rashes Neuro: General: patient oriented x3, moves all extremities, no meningeal signs, no focal motor deficits and CN's II-XI intact bilaterally Extrem: General: normal to inspection and no pedal edema Psych: Appearance: grossly normal and well kempt Mental Status: mental status grossly normal Affect: normal affect and Anxious affect present Attitude: cooperative Thought content: Yes Normal thought content present Course Course Emergency Course: Pt was stable in th
[2021-04-28 20:28] VITALS: BP 118/67; PULSE 73; RESP 17; TEMP 36.7; O2SAT 96
== END 2021-04-28 20:30 | disposition home or self-care (01) ==
PROVIDERS: Emergency Provider Emergency Medicine; PCP Family Medicine
DX: R07.89 Other chest pain (principal); K21.9 Gastro-esophageal reflux disease without esophagitis; F17.200 Nicotine dependence, unspecified, uncomplicated; I25.10 Atherosclerotic heart disease of native coronary artery without angina pectoris; E11.9 Type 2 diabetes mellitus without complications; Z20.822 Contact with and (suspected) exposure to COVID-19
CPT/HCPCS: 36415; 71045; 80053; 83605; 84484; 85025; 87426; 93005; 96360; 99284; A9270; C9803; J7040

== ENCOUNTER 2021-05-20 11:08 | Emergency (ER) | payer MEDICARE, SELFPAY ==
--- NOTE | ~2021-05-20 | CT_ITS ---
EXAMINATION: CT brain wo con DATE: 05/20/2021 12:21 INDICATION: Syncope. Dizziness. TECHNIQUE: Computed tomography (CT) of the head was performed without intravenous contrast. The mA wa s adjusted according to patient size. Iterative reconstruction technique was employed. The dose-lengt h product was 605.33 mGy-cm. COMPARISON: Head CT 11/14/2020 FINDINGS: There is no intracranial hemorrhage, acute infarction, or abnormal intracranial mass lesion . The ventricles are normal in size. There are changes of posterior craniotomy with surgical clip. Th ere is an old blow-out fracture of medial wall of left orbit. There is mucosal thickening in the para nasal sinuses. The mastoid air cells are normal. IMPRESSION: 1. Normal brain. Reviewed, dictated and finalized at location A. IMPRESSION: 1. Normal brain.
[2021-05-20 11:08] VITALS: BP 137/72; PULSE 78; RESP 20; TEMP 36.6; O2SAT 95
--- NOTE | 2021-05-20 11:11 | ECG_ITS ---
Measurements Intervals [place] Rate: 75 P: 22 AL: 156 QRS: 1 QRSD: 106 T: 54 QT: 388 QTc: 434 Interpretive Statements SINUS RHYTHM POOR R-WAVE PROGRESSION ABNORMAL ECG COMPARED TO ECG 04/28/2021 18:24:09 NO SIGNIFICANT CHANGES Electronically Signed On 05-20-2021 16:24:34 CDT by Osmar Alex M.D.
--- NOTE | 2021-05-20 11:11 | ED.SYNCOPE ---
HPI - Syncope General Chief Complaint: Syncope Stated Complaint: syncope Time Seen by Provider: 05/20/21 11:10 Source: patient and RN notes reviewed Mode of arrival: wheelchair Limitations: no limitations History of Present Illness HPI narrative: Patient states he got up from his chair went into the bathroom to take his medications when he got there he was feeling dizzy and he went down to the floor not sure if he passed out but he said he did easing self down onto the ground. He then made it back to his bed after he took a nitro glycerin because his chest felt heavy like when he has heartburn also. He then came to the hospital for further evaluation. Has a history of having vasovagal syncope as well as severe reflux. He says that he has had a heart attack in the past and he makes him anxious about having another heart attack. MD complaint: felt faint and almost passed out Onset (ago): minute(s) (1) Prodromal symptoms: lightheaded Witnessed: No Context: standing up Injuries sustained associated with event: none Current symptoms: lightheaded History: previous syncopal episode and history of CAD Treatments prior to arrival: none Related Data Home Medications Medication Instructions Recorded Confirmed finasteride 5 mg PO DAILY 02/13/19 05/20/21 metformin 500 mg PO BID 02/13/19 05/20/21 metoprolol tartrate 25 mg PO BID 02/13/19 05/20/21 tamsulosin 0.4 mg PO DAILY 02/13/19 05/20/21 lovastatin 20 mg PO DAILY 07/18/19 05/20/21 nitroglycerin 0.4 mg SUBLINGUAL PRN PRN 07/18/19 05/20/21 aspirin [Adult Low Dose Aspirin] 81 mg PO DAILY 11/14/20 05/20/21 meclizine 25 mg PO PRN PRN 11/14/20 05/20/21 Allergies Allergy/AdvReac Type Severity Reaction Status Date / Time Penicillins Allergy Unknown Unknown Verified 07/06/20 08:02 carbamazepine [From Tegretol] Allergy Unknown Verified 07/06/20 08:02 clindamycin Allergy Unknown Verified 07/06/20 08:02 Review of Systems Review of Systems: All systems reviewed & are unremarkable except as noted in HPI and below Constitutional: Constitutional: Denies chills and Denies fever(s) Respiratory: Respiratory: Denies cough and Denies dyspnea Gastrointestinal: Gastrointestinal: Reports heartburn, Denies diarrhea, Denies nausea and Denies vomiting Genitourinary: Genitourinary: Denies dysuria and Denies urinary frequency Neurologic: Denies confusion, Reports vertigo, Denies headache(s) and Denies focal weakness PMFSH Past Medical History Medical History Bloating BPH (benign prostatic hyperplasia) CAD (coronary artery disease) Colon cancer screening Diabetes mellitus Gastroesophageal reflux disease History of heart attack Hypertension Non-cardiac chest pain Tobacco abuse Type 2 diabetes mellitus Surgical History Surgical History History of coronary artery stent placement x2 Social History Social History Smoking packs per day: 1 Smoking cigarettes per day: 20.0 Smoking status: Current every day smoker Tobacco type: cigarettes Alcohol intake: never Substance use: current Substance use type: marijuana Gender identity (if verbalized by the patient): Male Spiritual care concerns: No Exam Const: General: healthy appearing, no acute distress and alert Nutritional Appearance: well nourished Orientation/consciousness: patient oriented x3 HENMT: Head: normal to inspection Ears: external ears normal Eyes: Conjunctivae: conjunctivae normal Pupils: Equal, round and reactive pupils present EOM: EOMs intact bilaterally Neck: Neck: normal visual inspection Chest: Chest palpation & inspection: normal inspection of the chest Resp: Effort & Inspection: normal respiratory effort Auscultation: clear to auscultation bilaterally Cardio: Rate: regular rate Rhythm: regular rhythm GI: GI Palp: Yes Soft to palp
[2021-05-20 11:26] LABS: Basophils Absolute Auto 0.05 K/mm3 (0.00-0.10); Basophils Percent Auto 0.5 % (0.0-1.0); Eosinophils Absolute Auto 0.24 K/mm3 (0.02-0.50); Eosinophils Percent Auto 2.5 % (1.0-6.0); Hemoglobin 15.9 g/dL (12.4-15.3); Immature Granulocyte Absolute 0.09 K/mm3 (0.00-0.00); Immature Granulocyte Percent A 0.9 % (0.0-0.0); Lymphocytes Absolute Auto 1.91 K/mm3 (1.10-4.50); Lymphocytes Percent Auto 19.7 % (18.0-42.0); Mean Corpuscular HGB Conc 33.1 g/dL (32.0-36.0); Mean Corpuscular Hemoglobin 31.7 pg (27.0-31.0); Mean Corpuscular Volume 95.6 fL (78.0-102.0); Mean Platelet Volume 10.9 fl (8.7-11.0); Monocytes Absolute Auto 0.69 K/mm3 (0.10-0.90); Monocytes Percent Auto 7.1 % (2.0-11.0); Neutrophils Absolute Auto 6.7 K/mm3 (1.7-7.2); Neutrophils Percent Auto 69.3 % (50.0-70.0); Platelet Count Result 221 K/mm3 (150-420); Red Blood Count 5.02 M/mm3 (4.70-6.10); Red Cell Distribution Width 12.7 % (11.6-14.4); White Blood Count 9.7 K/mm3 (4.8-10.8)
[2021-05-20 11:38] LABS: Prothrombin Time 10.6 Seconds (9.50-12.10)
[2021-05-20 11:49] LABS: Alanine Aminotransferase 32 U/L (16-63); Albumin Level 3.7 g/dL (3.4-5.0); Alkaline Phosphatase 62 U/L (46-116); Anion Gap 8 mmol/L (8-16); Aspartate Amino Transferase 14 U/L (15-37); Bilirubin,Total 0.5 mg/dL (0.00-1.00); Blood Urea Nitrogen 23 mg/dL (7-18); Calcium 9.1 mg/dL (8.5-10.1); Carbon Dioxide 26 mmol/L (21-32); Chloride 104 mmol/L (98-108); Estimated CRCL calculation 71 ml/min; Estimated Glomerular Filt Rate > 60; Glucose 138 mg/dL (70-99); Osmolality Calculated 291 mOsm/kg (285-295); Potassium 4.2 mmol/L (3.5-5.1); Sodium 138 mmol/L (136-145); Total Protein 6.9 g/dL (6.4-8.2)
[2021-05-20 11:51] LABS: Magnesium 1.7 mg/dL (1.8-2.4); NT Pro B Type Natriuretic Pept 37 pg/mL (0-125)
[2021-05-20 12:04] LABS: Troponin I 9.4 ng/L (0.00-60.4)
[2021-05-20] MEDS: MAG HYDROX/ALUMINUM HYD/SIMETH 30 ML, PHENobarb/HYOSCY/ATROPINE/SCOP 32.4 MG, LIDOCAINE... PO (12:39)
[2021-05-20 12:40] VITALS: BP 106/62; PULSE 76; RESP 20; TEMP 37.1; O2SAT 95
== END 2021-05-20 12:42 | disposition home or self-care (01) ==
PROVIDERS: Emergency Provider Emergency Medicine; PCP Family Medicine
DX: R55 Syncope and collapse (principal); I25.10 Atherosclerotic heart disease of native coronary artery without angina pectoris; K21.9 Gastro-esophageal reflux disease without esophagitis; I10 Essential (primary) hypertension; E11.9 Type 2 diabetes mellitus without complications; F17.200 Nicotine dependence, unspecified, uncomplicated
CPT/HCPCS: 36415; 70450; 80053; 83735; 83880; 84484; 85025; 85610; 93005; 99284; A9270

== ENCOUNTER 2021-12-12 14:53 | Emergency (ER) | payer MEDICARE, SELFPAY ==
[2021-12-12 15:00] VITALS: BP 145/82; PULSE 87; RESP 18; TEMP 36.3; O2SAT 97
[2021-12-12 15:01] VITALS: BP 145/82; PULSE 87; RESP 16; TEMP 36.3; O2SAT 97
--- NOTE | 2021-12-12 15:06 | ED.URI ---
HPI - URI/Sore Throat General Chief Complaint: Upper Respiratory Infection Stated Complaint: covid symptoms Time Seen by Provider: 12/12/21 15:06 Source: patient Mode of arrival: ambulatory Limitations: no limitations History of Present Illness HPI Narrative: 71-year-old male, smoker with a history of hypertension, diabetes mellitus, coronary artery disease status post stent many years ago presented to his primary care physician 2 days ago for upper respiratory symptoms for which she had a COVID test which was negative. He received influenza vaccination. The patient presents today with -- sore throat -- loss of taste and smell -- cough with sputum production. -- Nasal congestion. No fever. No chest pain. No shortness of breath. The patient just wants a COVID test. He does not want any other testing done. MD elicited complaint: sore throat Pertinent past history: COPD Onset (ago): day(s) ( Three days ago) Consistency: intermittent Severity: mild Description of mucous: watery Able to tolerate fluids by mouth: Yes Exacerbating factors: nothing Relieving factors: nothing Associated symptoms: denies other symptoms, nasal congestion, sore throat and cough Treatments prior to arrival: none Related Data Home Medications Medication Instructions Recorded Confirmed finasteride 5 mg tablet 5 mg PO DAILY 02/13/19 12/12/21 metformin 500 mg tablet 500 mg PO BID 02/13/19 12/12/21 metoprolol tartrate 25 mg tablet 25 mg PO BID 02/13/19 12/12/21 tamsulosin 0.4 mg capsule 0.4 mg PO DAILY 02/13/19 12/12/21 lovastatin 20 mg tablet 20 mg PO DAILY 07/18/19 12/12/21 nitroglycerin 0.4 mg sublingual 0.4 mg sublingual PRN PRN Angina 07/18/19 12/12/21 tablet aspirin 81 mg tablet,delayed 81 mg PO DAILY 11/14/20 12/12/21 release (Adult Low Dose Aspirin) meclizine 25 mg tablet 25 mg PO PRN PRN Dizziness Or 11/14/20 12/12/21 Vertigo Allergies Allergy/AdvReac Type Severity Reaction Status Date / Time Penicillins Allergy Unknown Unknown Verified 12/12/21 15:05 carbamazepine [From Tegretol] Allergy Unknown Verified 12/12/21 15:05 clindamycin Allergy Unknown Verified 12/12/21 15:05 Review of Systems Review of Systems: All systems reviewed & are unremarkable except as noted in HPI and below Constitutional: Constitutional: Reports as per HPI and Reports no additional constitutional complaints Eyes: Eyes: Reports as per HPI and Reports no additional eye complaints ENT: Reports system reviewed and no additional complaints, except as documented, Reports as per HPI, Reports nasal congestion and Reports sore throat Cardiovascular: Cardiovascular: Reports as per HPI and Reports no additional cardiovascular complaints Respiratory: Respiratory: Reports as per HPI, Reports no additional respiratory complaints, Reports cough and Reports excessive phlegm production Gastrointestinal: Gastrointestinal: Reports as per HPI and Reports no additional gastrointestinal complaints Genitourinary: Genitourinary: Reports no additional male genitourinary complaints and Reports as per HPI Musculoskeletal: Musculoskeletal: Reports no additional musculoskeletal complaints and Reports as per HPI Integumentary/Breasts: Skin/Breast: Reports system reviewed and no additional complaints, except as docu and Reports as per HPI Neurologic: Reports system reviewed and no additional complaints, except as documented and Reports as per HPI Psychiatric: Psychiatric: Reports no additional psychiatric complaints and Reports as per HPI Endocrine: Endocrine: Reports no additional endocrine complaints and Reports as per HPI Hematologic/Lymphatic: Hematologic/Lymphatic: Reports no additional hematologic/lymphatic complaints and Reports as per HPI Allergic/Immunologic: Allergic/Immunologic: Reports no additional allergic/immunologic complaints and Reports as per HPI [facility] Past Medical History Medical History M[place]
[2021-12-12 16:10] LABS: SARS-CoV-2 RNA PCR Negative (Negative)
[2021-12-12 16:33] VITALS: BP 120/78; PULSE 69; RESP 16; TEMP 36.2; O2SAT 97
== END 2021-12-12 16:34 | disposition home or self-care (01) ==
PROVIDERS: Emergency Provider Internal Medicine Critical Care Medicine; PCP Family Medicine
DX: J06.9 Acute upper respiratory infection, unspecified (principal); I10 Essential (primary) hypertension; I25.10 Atherosclerotic heart disease of native coronary artery without angina pectoris; E11.9 Type 2 diabetes mellitus without complications; N40.0 Benign prostatic hyperplasia without lower urinary tract symptoms; K21.9 Gastro-esophageal reflux disease without esophagitis; I25.2 Old myocardial infarction; F17.210 Nicotine dependence, cigarettes, uncomplicated; Z95.5 Presence of coronary angioplasty implant and graft
CPT/HCPCS: 99283; C9803; U0003; U0005

== ENCOUNTER 2021-12-20 08:46 | Outpatient (CLI) | payer MEDICARE, SELFPAY ==
--- NOTE | ~2021-12-20 | CT_ITS ---
EXAMINATION: CTA abd aorta runoff DATE: 12/20/2021 09:52 INDICATION: Iliac artery aneurysm. TECHNIQUE: Computed tomographic angiography (CTA) of the abdominal, pelvis, and both lower extremitie s was performed with 150 mL Omnipaque-350 intravenous contrast. Automated exposure control and iterat sammy reconstruction technique were employed. The dose-length product was 1395.28 mGy-cm. Maximum inten sity projection 3D-reconstructions of the arteries were created by the technologist on a separate wor kstation. COMPARISON: CT abdomen and pelvis 06/29/2019 FINDINGS: ABDOMINAL AORTA AND ITS BRANCHES: Abdominal aorta is normal in caliber. There is atherosclerosis of abdominal aorta without significant stenosis. There is no significant stenosis of celiac axis, superior mesenteric artery, the renal art eries, or inferior mesenteric artery. 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 There is a 2.0 cm eccentr ic fusiform aneurysm of left common iliac artery. There is no significant stenosis of the common lois c arteries, internal iliac arteries, or external iliac arteries. RIGHT LOWER EXTREMITY VASCULATURE: There is no significant stenosis of right common femoral artery, profunda femoris, superficial femora l artery, popliteal artery, tibioperoneal trunk, anterior tibial artery, posterior tibial artery, or peroneal artery. LEFT LOWER EXTREMITY VASCULATURE: There is no significant stenosis of left common femoral artery, profunda femoris, superficial femoral artery, popliteal artery, tibioperoneal trunk, anterior tibial artery, posterior tibial artery, or p eroneal artery. ADDITIONAL FINDINGS: The visualized portions of the lung bases demonstrate mild atelectasis on the right. No pleural effus ion. The heart size is normal. No pericardial effusion. There is a 15 mm hyperenhancing mass in the l iver, likely benign in the absence of known malignancy or chronic liver disease. There are changes of cholecystectomy. The spleen, pancreas, and adrenal glands are normal. There are cysts in the kidneys measuring up to 4.1 cm on the left. The prostate is moderately enlarged. There are bilateral inguina l hernias containing fat. There is diverticulosis of the colon without evidence of diverticulitis. Th e appendix is normal. There are no pathologically enlarged lymph nodes. There is no free intraperiton eal fluid. There is osteonecrosis in the femoral heads. There is moderate osteoarthritis of the hips. There is mild thoracolumbar spondylosis. IMPRESSION: 1. 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 2. Bilateral three-vessel runoff. Reviewed, dictated and finalized at location B. IMPRESSION: 1. 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 2. Bilateral three-vessel runoff.
--- NOTE | ~2021-12-20 | CT_ITS ---
EXAMINATION: CT lung screening DATE: 12/20/2021 09:51 INDICATION: Personal history of nicotine dependence, current smoker with 30 pack year history TECHNIQUE: Computed tomography (CT) of the chest was performed without intravenous contrast. The dose -length product (DLP) was 133.16 mGy-cm. Automated exposure control and iterative reconstruction tech [employer] were employed. COMPARISON: None FINDINGS: The lungs are free of acute opacities. No pleural effusion or pneumothorax. No suspicious p ulmonary nodules are identified. No pathologically enlarged thoracic lymph nodes are identified. The heart size is normal. Bilateral gynecomastia is noted. There is calcified coronary artery atheroscler osis. The gallbladder is surgically absent. There are bridging osteophytes at multiple levels in the spine, consistent with diffuse idiopathic skeletal hyperostosis (DISH). IMPRESSION: 1. Lung-RADS category 1: Negative. Continue annual screening with noncontrast low-dose chest CT in 12 months. Reviewed, dictated and finalized at location A. IMPRESSION: 1. Lung-RADS category 1: Negative. Continue annual screening with noncontrast l ow-dose chest CT in 12 months.
[2021-12-20 09:09] LABS: Estimated Glomerular Filt Rate > 60
== END 2021-12-20 08:47 | disposition home or self-care (01) ==
LOC: CHSIMG 08:48
PROVIDERS: PCP Family Medicine; Visit Provider Physician Assistant
DX: Z12.2 Encounter for screening for malignant neoplasm of respiratory organs (principal); Z87.891 Personal history of nicotine dependence; I72.3 Aneurysm of iliac artery
CPT/HCPCS: 71271; 75635; Q9967

== ENCOUNTER 2022-01-04 03:00 | Emergency (ER) | payer MEDICARE, SELFPAY ==
[2022-01-04] VITALS (8 sets, daily range): BP systolic 105–127; BP diastolic 66–86; PULSE 65–77; RESP 15–21; TEMP 36.6; O2SAT 94–98
--- NOTE | ~2022-01-04 | XR_ITS ---
EXAMINATION: XR chest 1V portable DATE: 01/04/2022 04:14 INDICATION: Chest pain. Shortness of breath. TECHNIQUE: A single frontal view of the chest was obtained. COMPARISON: Chest single view 04/28/2021, chest CT 12/20/2021 FINDINGS: There is mild scarring at right lung base. No pleural effusion or pneumothorax. The heart s ize is normal. IMPRESSION: 1. Mild scarring at right lung base. Reviewed, dictated and finalized at location A.
--- NOTE | 2022-01-04 03:24 | ECG_ITS ---
Measurements Intervals [place] Rate: 72 P: 18 WV: 174 QRS: -14 QRSD: 103 T: 69 QT: 397 QTc: 436 Interpretive Statements SINUS RHYTHM CANNOT RULE OUT SEPTAL INFARCT, AGE INDETERMINATE BASELINE ARTIFACT- V2 ABNORMAL ECG COMPARED TO ECG 05/20/2021 11:18:54 CANNOT RULE OUT SEPTAL INFARCT, AGE INDETERMINATE NOW PRESENT Electronically Signed On 01-04-2022 6:56:32 CDT by Raul Richmond D.O.
--- NOTE | 2022-01-04 03:34 | ED.CHESTPAIN ---
HPI - Chest Pain General Chief Complaint: Chest Pain Stated Complaint: HEARTBURN Source: patient Mode of arrival: ambulatory Limitations: no limitations History of Present Illness HPI narrative: patient is a 71-year-old white male with history of coronary artery disease with OK in the past and GERD. Presents to the emergency room complaining of retrosternal chest pain pressure constant for the last 24 hours. He rated as a 7/10 at home and here in the emergency room he says it is a 5/10. This was associated with some nausea without vomiting. He denies any shortness of breath dizziness lightheadedness cough. He says his GERD and is heart pain feel very similar he does know which 1 this is. Patient denies any radiation of his pain back pain or abdominal pain. He did notice that he has been bloated more and has more gas in his abdomen than usual. Denies any extremity pain Past medical history: Has had a OK and stents placed, diabetes hyperlipidemia prostate enlargement GERD. no history of venous thromboembolism. Related Data Home Medications Medication Instructions Recorded Confirmed finasteride 5 mg tablet 5 mg PO DAILY 02/13/19 01/04/22 metformin 500 mg tablet 500 mg PO BID 02/13/19 01/04/22 metoprolol tartrate 25 mg tablet 25 mg PO BID 02/13/19 01/04/22 tamsulosin 0.4 mg capsule 0.4 mg PO DAILY 02/13/19 01/04/22 lovastatin 20 mg tablet 20 mg PO DAILY 07/18/19 01/04/22 aspirin 81 mg tablet,delayed 81 mg PO DAILY 11/14/20 01/04/22 release (Adult Low Dose Aspirin) meclizine 25 mg tablet 25 mg PO PRN PRN Dizziness Or 11/14/20 01/04/22 Vertigo Allergies Allergy/AdvReac Type Severity Reaction Status Date / Time Penicillins Allergy Unknown Unknown Verified 01/04/22 03:18 carbamazepine [From Tegretol] Allergy Unknown Verified 01/04/22 03:18 clindamycin Allergy Unknown Verified 01/04/22 03:18 Review of Systems Review of Systems: All systems reviewed & are unremarkable except as noted in HPI and below Constitutional: Constitutional: Reports no additional constitutional complaints Eyes: Eyes: Reports no additional eye complaints ENT: Reports system reviewed and no additional complaints, except as documented Cardiovascular: Cardiovascular: Reports as per HPI and Reports no additional cardiovascular complaints Respiratory: Respiratory: Reports as per HPI and Reports no additional respiratory complaints Gastrointestinal: Gastrointestinal: Reports as per HPI, Reports no additional gastrointestinal complaints, Denies abdominal pain, Reports bloating, Denies constipation, Reports heartburn, Denies diarrhea, Reports nausea and Denies vomiting Genitourinary: Genitourinary: Reports no additional male genitourinary complaints Musculoskeletal: Musculoskeletal: Reports no additional musculoskeletal complaints Integumentary/Breasts: Skin/Breast: Reports system reviewed and no additional complaints, except as docu Neurologic: Reports system reviewed and no additional complaints, except as documented PMFSH Past Medical History Medical History Bloating BPH (benign prostatic hyperplasia) CAD (coronary artery disease) Colon cancer screening Diabetes mellitus Gastroesophageal reflux disease History of heart attack Hypertension Non-cardiac chest pain Tobacco abuse Type 2 diabetes mellitus Surgical History Surgical History History of coronary artery stent placement x2 Social History Social History Smoking packs per day: 1 Smoking cigarettes per day: 20.0 Smoking status: Current every day smoker Tobacco type: cigarettes Alcohol intake: never Substance use: current Substance use type: marijuana Gender identity (if verbalized by the patient): Male Spiritual care concerns: No Exam Const: General: healthy appearing Nutritional Ap
[2022-01-04] MEDS: ASPIRIN 81 MG CHEWABLE TABLET 324 MG PO (03:42)
[2022-01-04 03:44] LABS: Basophils Absolute Auto 0.06 K/mm3 (0.00-0.10); Basophils Percent Auto 0.5 % (0.0-1.0); Eosinophils Absolute Auto 0.45 K/mm3 (0.02-0.50); Eosinophils Percent Auto 3.8 % (1.0-6.0); Hematocrit 43.6 % (37.0-46.0); Hemoglobin 14.8 g/dL (12.4-15.3); Immature Granulocyte Absolute 0.11 K/mm3 (0.00-0.00); Immature Granulocyte Percent A 0.9 % (0.0-0.0); Lymphocytes Absolute Auto 3.85 K/mm3 (1.10-4.50); Lymphocytes Percent Auto 32.4 % (18.0-42.0); Mean Corpuscular HGB Conc 33.9 g/dL (32.0-36.0); Mean Corpuscular Hemoglobin 32.2 pg (27.0-31.0); Mean Platelet Volume 10.3 fl (8.7-11.0); Monocytes Absolute Auto 1.12 K/mm3 (0.10-0.90); Monocytes Percent Auto 9.4 % (2.0-11.0); Neutrophils Absolute Auto 6.3 K/mm3 (1.7-7.2); Platelet Count Result 279 K/mm3 (150-420); Red Blood Count 4.59 M/mm3 (4.70-6.10); Red Cell Distribution Width 12.7 % (11.6-14.4); White Blood Count 11.9 K/mm3 (4.8-10.8)
[2022-01-04] MEDS: ONDANSETRON INJ 4 MG/2 ML VIAL IV PUSH (03:44)
[2022-01-04] MEDS: MORPHINE SULFATE (*CRX) 4 MG/ML INJ IV PUSH (03:46)
--- NOTE | 2022-01-04 03:49 | PC.NURSE ---
After giving pt his medications, pt had to sit up and started experiencing an increase in pain back to the 7 out of 10. Pt also started belching an increased amount.
[2022-01-04] MEDS: MAG HYDROX/ALUMINUM HYD/SIMETH 30 ML, PHENobarb/HYOSCY/ATROPINE/SCOP 32.4 MG, LIDOCAINE... PO (03:54)
[2022-01-04 03:58] LABS: INR 0.9; Prothrombin Time 10.3 Seconds (9.50-12.10)
[2022-01-04 04:00] LABS: D Dimer 0.44 mg/L (0.19-0.50)
[2022-01-04 04:06] LABS: Alanine Aminotransferase 32 U/L (16-63); Albumin Level 3.5 g/dL (3.4-5.0); Alkaline Phosphatase 81 U/L (46-116); Anion Gap 7 mmol/L (8-16); Aspartate Amino Transferase 14 U/L (15-37); Bilirubin,Total 0.3 mg/dL (0.00-1.00); Blood Urea Nitrogen 15 mg/dL (7-18); Calcium 8.2 mg/dL (8.5-10.1); Carbon Dioxide 26 mmol/L (21-32); Chloride 108 mmol/L (98-108); Estimated CRCL calculation 69 ml/min; Estimated Glomerular Filt Rate > 60; Glucose 85 mg/dL (70-99); Lipase 97 U/L (73-393); NT Pro B Type Natriuretic Pept 46 pg/mL (0-125); Osmolality Calculated 291 mOsm/kg (285-295); Sodium 141 mmol/L (136-145); Total Protein 6.8 g/dL (6.4-8.2)
[2022-01-04 04:07] LABS: Troponin I 9.3 ng/L (0.00-60.4)
[2022-01-04] MEDS: PANTOPRAZOLE SODIUM IV 40 MG VIAL 80 MG IV PUSH (05:16)
--- NOTE | 2022-01-04 06:48 | ECG_ITS ---
Measurements Intervals [place] Rate: 67 P: 59 [place]: 160 QRS: 37 QRSD: 101 T: 78 QT: 411 QTc: 437 Interpretive Statements SINUS RHYTHM WITH SINUS ARRHYTHMIA CANNOT RULE OUT SEPTAL INFARCT, AGE INDETERMINATE BASELINE ARTIFACT- II, III, AVF ABNORMAL ECG COMPARED TO ECG 01/04/2022 03:28:37 SINUS ARRHYTHMIA NOW PRESENT Electronically Signed On 01-04-2022 7:55:17 CDT by Raul Richmond D.O.
== END 2022-01-04 07:16 | disposition home or self-care (01) ==
PROVIDERS: Emergency Provider Emergency Medicine; PCP Family Medicine
DX: R07.89 Other chest pain (principal); K21.9 Gastro-esophageal reflux disease without esophagitis; I25.10 Atherosclerotic heart disease of native coronary artery without angina pectoris; E11.9 Type 2 diabetes mellitus without complications; I10 Essential (primary) hypertension; F17.200 Nicotine dependence, unspecified, uncomplicated
CPT/HCPCS: 36415; 71045; 80053; 83690; 83735; 83880; 84484; 85025; 85380; 85610; 85730; 93005; 96374; 96375; 99284; A9270; C9113; J2270; J2405

== ENCOUNTER 2022-03-08 21:48 | Emergency (ER) | payer MEDICARE, SELFPAY ==
--- NOTE | ~2022-03-08 | XR_ITS ---
EXAMINATION: XR chest 1V portable Exam Date/Time: 03/08/2022 22:12 SWEATER OPERATOR HISTORY: L SIDED CP RADIATES DOWN L ARM TODAY HX MO,CAD,HTN Comparison: 01/04/2022. RESULT: Lines, tubes, and devices: None. Lungs and pleura: Clear. Cardiomediastinal silhouette: Stable. Other: No acute osseous or upper abdominal finding. IMPRESSION: No acute cardiopulmonary process. Reviewed, dictated and finalized at location K. TER OPERATOR
[2022-03-08 21:55] VITALS: BP 122/58; PULSE 93; RESP 20; TEMP 36.8; O2SAT 96
--- NOTE | 2022-03-08 22:01 | ECG_ITS ---
Measurements Intervals [place] Rate: 88 P: 9 [place]: 164 QRS: -13 QRSD: 101 T: 76 QT: 363 QTc: 440 Interpretive Statements SINUS RHYTHM BASELINE ARTIFACT- I, III, AVR, AVL, AVF, V1-V2 NORMAL ECG COMPARED TO ECG 01/04/2022 06:56:13 NO SIGNIFICANT CHANGES Electronically Signed On 03-09-2022 8:06:20 CALL CENTER SUPPORT CONSULTANT by Raul Richmond D.O.
--- NOTE | 2022-03-08 22:01 | ED.CHESTPAIN ---
HPI - Chest Pain General Chief Complaint: Chest Pain Stated Complaint: chest pains Time Seen by Provider: 03/08/22 22:00 History of Present Illness HPI narrative: 71-year-old male patient known history of coronary artery disease status post TX with 1 stent and GERDS is here with complaints of pain in the chest on the left side earlier in the evening. He states that he help somebody lift something heavy and then later on experience some discomfort in the left anterior chest that radiated down his arm. The pain subsided after he took nitro and at this time he is pain-free. He denies breaking out in cold sweat. He denies any radiation of pain into the neck or jaw. He denies any associated shortness of breath or diaphoresis or passing out. He complains of having heaviness in the arm at this point although the chest discomfort has eased. Patient is a smoker of 2 packs of cigarettes a day. He also has a history of type 2 diabetes mellitus and is on metformin for the same. The patient is also taking lovastatin in addition to his regular medications of aspirin, meclizine finasteride metoprolol omeprazole pantoprazole and tamsulosin. He uses nitroglycerin only as needed. Related Data Home Medications Medication Instructions Recorded Confirmed finasteride 5 mg tablet 5 mg PO DAILY 02/13/19 03/08/22 metformin 500 mg tablet 500 mg PO BID 02/13/19 03/08/22 metoprolol tartrate 25 mg tablet 25 mg PO BID 02/13/19 03/08/22 tamsulosin 0.4 mg capsule 0.4 mg PO DAILY 02/13/19 03/08/22 lovastatin 20 mg tablet 20 mg PO DAILY 07/18/19 03/08/22 aspirin 81 mg tablet,delayed 81 mg PO DAILY 11/14/20 03/08/22 release (Adult Low Dose Aspirin) meclizine 25 mg tablet 25 mg PO PRN PRN Dizziness Or 11/14/20 03/08/22 Vertigo Allergies Allergy/AdvReac Type Severity Reaction Status Date / Time Penicillins Allergy Unknown Unknown Verified 03/08/22 23:24 carbamazepine [From Tegretol] Allergy Unknown Verified 03/08/22 23:24 clindamycin Allergy Unknown Verified 03/08/22 23:24 Review of Systems Review of Systems: All systems reviewed & are unremarkable except as noted in HPI and below Constitutional: Constitutional: Reports no additional constitutional complaints Eyes: Eyes: Reports no additional eye complaints ENT: Reports system reviewed and no additional complaints, except as documented Cardiovascular: Cardiovascular: Reports chest pain, Denies rapid heart rate, Reports radiating jaw, neck or arm pain and Denies slow heart rate Respiratory: Respiratory: Reports no additional respiratory complaints Gastrointestinal: Gastrointestinal: Reports no additional gastrointestinal complaints Genitourinary: Genitourinary: Reports no additional male genitourinary complaints Musculoskeletal: Musculoskeletal: Reports no additional musculoskeletal complaints Integumentary/Breasts: Skin/Breast: Reports system reviewed and no additional complaints, except as docu Neurologic: Reports system reviewed and no additional complaints, except as documented Psychiatric: Psychiatric: Reports no additional psychiatric complaints Endocrine: Endocrine: Reports no additional endocrine complaints Hematologic/Lymphatic: Hematologic/Lymphatic: Reports no additional hematologic/lymphatic complaints Allergic/Immunologic: Allergic/Immunologic: Reports no additional allergic/immunologic complaints PMFSH Past Medical History Medical History Bloating BPH (benign prostatic hyperplasia) CAD (coronary artery disease) Colon cancer screening Diabetes mellitus Gastroesophageal reflux disease History of heart attack Hypertension Non-cardiac chest pain Tobacco abuse Type 2 diabetes mellitus Surgical History Surgical History History of coronary artery stent placement x2 Social History Social History Smoking packs per
[2022-03-08 22:10] VITALS: BP 123/63; PULSE 88; RESP 16; O2SAT 98
[2022-03-08 22:17] LABS: Basophils Absolute Auto 0.05 K/mm3 (0.00-0.10); Basophils Percent Auto 0.4 % (0.0-1.0); Eosinophils Absolute Auto 0.43 K/mm3 (0.02-0.50); Eosinophils Percent Auto 3.6 % (1.0-6.0); Hematocrit 41.6 % (37.0-46.0); Hemoglobin 13.9 g/dL (12.4-15.3); Immature Granulocyte Absolute 0.07 K/mm3 (0.00-0.00); Immature Granulocyte Percent A 0.6 % (0.0-0.0); Lymphocytes Absolute Auto 4.04 K/mm3 (1.10-4.50); Lymphocytes Percent Auto 33.5 % (18.0-42.0); Mean Corpuscular HGB Conc 33.4 g/dL (32.0-36.0); Mean Corpuscular Hemoglobin 31.8 pg (27.0-31.0); Mean Corpuscular Volume 95.2 fL (78.0-102.0); Mean Platelet Volume 10.6 fl (8.7-11.0); Monocytes Absolute Auto 0.79 K/mm3 (0.10-0.90); Monocytes Percent Auto 6.6 % (2.0-11.0); Neutrophils Absolute Auto 6.7 K/mm3 (1.7-7.2); Neutrophils Percent Auto 55.3 % (50.0-70.0); Platelet Count Result 220 K/mm3 (150-420); Red Blood Count 4.37 M/mm3 (4.70-6.10); Red Cell Distribution Width 12.5 % (11.6-14.4); White Blood Count 12.1 K/mm3 (4.8-10.8)
[2022-03-08 22:34] LABS: Alanine Aminotransferase 27 U/L (16-63); Albumin Level 3.3 g/dL (3.4-5.0); Alkaline Phosphatase 75 U/L (46-116); Anion Gap 4 mmol/L (8-16); Aspartate Amino Transferase 10 U/L (15-37); Bilirubin,Total 0.2 mg/dL (0.00-1.00); Blood Urea Nitrogen 18 mg/dL (7-18); Calcium 8.5 mg/dL (8.5-10.1); Carbon Dioxide 30 mmol/L (21-32); Chloride 106 mmol/L (98-108); Estimated Glomerular Filt Rate > 60; Glucose 161 mg/dL (70-99); Osmolality Calculated 294 mOsm/kg (285-295); Potassium 3.9 mmol/L (3.5-5.1); Sodium 140 mmol/L (136-145); Total Protein 6.3 g/dL (6.4-8.2)
[2022-03-08 22:41] LABS: Magnesium 1.5 mg/dL (1.8-2.4); Troponin I 69.5 ng/L (0.00-60.4)
[2022-03-08] MEDS: ASPIRIN 81 MG CHEWABLE TABLET 324 MG PO (23:03)
[2022-03-08 23:05] VITALS: BP 129/63; PULSE 79; RESP 18; O2SAT 100
[2022-03-08] MEDS: NITROGLYCERIN OINTMENT 1 INCH DOSE 0.5 INCH TRANSDERM (23:50)
[2022-03-08 23:58] LABS: Partial Thromboplastin Time 27.5 SEC (23.90-30.70)
[2022-03-09 00:01] VITALS: BP 131/72; PULSE 74; RESP 18; O2SAT 95
[2022-03-09] MEDS: HEPARIN SOD/D5W 100 UNITS/ML 25,000 UNITS/250 ML BAG 10 UNITS IV CONT (00:01)
[2022-03-09] MEDS: HEPARIN SODIUM 5,000 UNITS/ML VIAL 4000 UNITS IV PUSH (00:01)
[2022-03-09 00:09] LABS: Troponin I 70.8 ng/L (0.00-60.4)
[2022-03-09 00:16] VITALS: BP 128/66; PULSE 76; RESP 20; O2SAT 96
[2022-03-09 00:31] VITALS: BP 118/66; PULSE 75; O2SAT 95
[2022-03-09 00:45] VITALS: BP 133/71; PULSE 77; RESP 18; TEMP 36.6; O2SAT 96
[2022-03-09 00:57] VITALS: BP 133/71; PULSE 73; RESP 18; TEMP 36.6; O2SAT 96
== END 2022-03-09 01:03 | disposition short-term general hospital (02) ==
PROVIDERS: Emergency Provider Emergency Medicine
DX: I21.4 Non-ST elevation (NSTEMI) myocardial infarction (principal); I25.2 Old myocardial infarction; K21.9 Gastro-esophageal reflux disease without esophagitis; I25.10 Atherosclerotic heart disease of native coronary artery without angina pectoris; N40.0 Benign prostatic hyperplasia without lower urinary tract symptoms; I10 Essential (primary) hypertension; E11.9 Type 2 diabetes mellitus without complications; Z95.5 Presence of coronary angioplasty implant and graft; F17.210 Nicotine dependence, cigarettes, uncomplicated; Z79.84 Long term (current) use of oral hypoglycemic drugs; Z79.82 Long term (current) use of aspirin
CPT/HCPCS: 36415; 71045; 80053; 83735; 84484; 85025; 85730; 93005; 96365; 99285; A9270; J1644

== ENCOUNTER 2022-03-19 14:14 | Observation (INO) | payer MEDICARE, SELFPAY ==
[2022-03-19] VITALS (23 sets, daily range): BP systolic 102–121; BP diastolic 57–90; PULSE 82–97; RESP 12–95; TEMP 36.5–37.1; O2SAT 90–97; BMI 29.2
--- NOTE | ~2022-03-19 | XR_ITS ---
XR chest 1V portable DATE: 03/19/2022 14:59 INDICATION: Popped stitch today; CABG last week. TECHNIQUE: 03/09/2022 portable AP chest at 1507 hours COMPARISON: 03/08/2022 portable AP chest at 2224 hours FINDINGS: Status post sternotomy. Normal heart size. Aortic calcification. There is mild patchy infiltrate in the right upper lung and minimal infiltrate and/or atelectasis at the lung bases. Minimal pleural effusions are suggested. No pulmonary vascular congestion or pneumothorax. IMPRESSION: Mild right upper and minimal bibasilar infiltrate and/or atelectasis Minimal pleural effusions Status post sternotomy Aortic calcification Reviewed, dictated and finalized at location A. UTER INSTRUCTOR IMPRESSION: Mild right upper and minimal bibasilar infiltrate and/or atelectasi s Minimal pleural effusions Status post sternotomy Aortic calcification
--- NOTE | 2022-03-19 14:48 | ECG_ITS ---
Measurements Intervals [place] Rate: 86 P: 20 WV: 140 QRS: 7 QRSD: 105 T: 79 QT: 372 QTc: 447 Interpretive Statements SINUS RHYTHM FREQUENT VENTRICULAR PREMATURE COMPLEXES NONSPECIFIC T-WAVE ABNORMALITY- HIGH LATERAL LEADS ABNORMAL ECG COMPARED TO ECG 03/08/2022 22:07:46 T-WAVE ABNORMALITY NOW PRESENT Electronically Signed On 03-20-2022 8:01:47 VENEER MATCHER by Raul Richmond D.O.
--- NOTE | 2022-03-19 14:52 | ED.GENADULT ---
HPI - General Adult General Chief complaint: Unspecified Stated complaint: open heart surgery issues Time Seen by Provider: 03/19/22 14:43 History of Present Illness HPI narrative: Patient is 71-year-old white male discharged from [facility] following a heart attack 1 and half weeks ago as well as the coronary artery bypass graft x2. Patient was discharged this morning 11:00 a.m.. Was doing fine and went home and was to be cared for by a son evidently is high currently. With her son and [id number] brought patient to the emergency department said that patient fell on the bed and cause just a little bleeding of his lower sternal scar. And was clear to them that the other son could not take care of this patient following his discharge. They also are from 2-1/2 hours away and are unable to care for the patient. So they brought the patient to the ED, for placement. While in the waiting room the son and [id number] called [employer] and they were told to tell the ER doctor that it was unsafe at home, he had anunsafe home environment and that he should get admitted. Patient does not feel any different than when he left the hospital this morning at 11:00 a.m. He has had a slight cough he has anterior chest wound tenderness and pain when he coughs and uses heart shaped pillow to attenuate to pain since his surgery. Related Data Home Medications Medication Instructions Recorded Confirmed finasteride 5 mg tablet 5 mg PO DAILY 02/13/19 03/19/22 metformin 500 mg tablet 500 mg PO DAILY 02/13/19 03/19/22 metoprolol tartrate 25 mg tablet 12.5 mg PO BID 02/13/19 03/19/22 lovastatin 20 mg tablet 20 mg PO DAILY 07/18/19 03/19/22 aspirin 81 mg tablet,delayed 81 mg PO DAILY 11/14/20 03/19/22 release (Adult Low Dose Aspirin) meclizine 25 mg tablet 25 mg PO TID PRN Dizziness Or 11/14/20 03/19/22 Vertigo clopidogrel 75 mg tablet 75 mg PO DAILY 03/19/22 03/19/22 doxycycline hyclate 100 mg tablet 100 mg PO BID 03/19/22 03/19/22 famotidine 20 mg tablet 20 mg PO BID 03/19/22 03/19/22 furosemide 20 mg tablet 20 mg PO DAILY 03/19/22 03/19/22 guaifenesin 600 mg tablet, 600 mg PO BID 03/19/22 03/19/22 extended release 12 hr (Mucinex) loratadine 10 mg tablet (Claritin) 10 mg PO DAILY 03/19/22 03/19/22 potassium chloride 10 mEq 30 meq PO DAILY 03/19/22 03/19/22 tablet,extended release Allergies Allergy/AdvReac Type Severity Reaction Status Date / Time Penicillins Allergy Unknown Unknown Verified 03/19/22 14:37 carbamazepine [From Tegretol] Allergy Unknown Verified 03/19/22 14:37 clindamycin Allergy Unknown Verified 03/19/22 14:37 ketorolac [From Toradol] AdvReac Hallucinati Verified 03/19/22 14:37 ng Review of Systems Constitutional: Constitutional: Reports no additional constitutional complaints, Denies body ache(s), Denies malaise, Denies night sweats and Denies poor appetite Comments: A breakfast fine this morning he is hungry at this point he did not eat lunch, but rather came to the emergency dept. Eyes: Eyes: Reports no additional eye complaints ENT: Reports system reviewed and no additional complaints, except as documented and Denies dizziness Cardiovascular: Cardiovascular: Reports as per HPI, Reports no additional cardiovascular complaints, Reports chest pain at rest and Reports leg edema Respiratory: Respiratory: Reports as per HPI, Reports no additional respiratory complaints and Reports cough Gastrointestinal: Gastrointestinal: Reports no additional gastrointestinal complaints, Denies diarrhea, Denies loose stools, Denies nausea and Denies odynophagia Genitourinary: Comments: Has had problems with enlargement of prostate and then has had some problems urinating. It is better when he takes his prostate medicine. Musculoskeletal: Musculoskeletal: Reports no additional musculoskeletal complaints, Denies neck pain, Denies numbness and Denies stiffness Comments: Complains of chronic pain in his back
--- NOTE | 2022-03-19 15:03 | PC.NURSE ---
consent sx by pt to release his records from [facility]. consent faxed to nursing laundry housekeeping aide at [facility]
[2022-03-19 15:28] LABS: Mean Corpuscular HGB Conc 33.3 g/dL (32.0-36.0); Mean Corpuscular Volume 95.9 fL (78.0-102.0); Mean Platelet Volume 10.3 fl (8.7-11.0); Platelet Count Result 283 K/mm3 (150-420); Red Blood Count 3.44 M/mm3 (4.70-6.10); Red Cell Distribution Width 12.5 % (11.6-14.4)
[2022-03-19 15:42] LABS: Partial Thromboplastin Time 29.3 SEC (23.90-30.70); Prothrombin Time 11.4 Seconds (9.50-12.10)
[2022-03-19 15:46] LABS: Alanine Aminotransferase 39 U/L (16-63); Albumin Level 2.9 g/dL (3.4-5.0); Alkaline Phosphatase 58 U/L (46-116); Anion Gap 7 mmol/L (8-16); Aspartate Amino Transferase 19 U/L (15-37); Blood Urea Nitrogen 18 mg/dL (7-18); Calcium 8.5 mg/dL (8.5-10.1); Carbon Dioxide 29 mmol/L (21-32); Chloride 100 mmol/L (98-108); Estimated CRCL calculation 73 ml/min; Estimated Glomerular Filt Rate > 60; Glucose 127 mg/dL (70-99); Magnesium 1.5 mg/dL (1.8-2.4); Osmolality Calculated 285 mOsm/kg (285-295); Potassium 3.7 mmol/L (3.5-5.1); Sodium 136 mmol/L (136-145); Total Protein 6.6 g/dL (6.4-8.2); Troponin I 46.1 ng/L (0.00-60.4)
[2022-03-19 15:57] LABS: Bilirubin,Total 0.5 mg/dL (0.00-1.00)
[2022-03-19 16:06] LABS: Influenza A QL RT-PCR Negative (Negative); Influenza B QL RT-PCR Negative (Negative); SARS-CoV-2 RNA PCR Negative (Negative)
[2022-03-19 16:08] LABS: RSV RNA, RT-PCR Negative (Negative)
--- NOTE | 2022-03-19 17:35 | ADMGEN ---
This patient, Christopher Ramirez, was admitted to 2nd Floor Room 209-1. Patient/family oriented to hospital policies and general routines including ID bracelet, bed and alarms, visiting hours, pain management, procedures, bathroom and other care routines, personal items, smoking policy, room service/diet, and visiting hours. Information on how to activate the Rapid Response Team has been discussed. Patient/Family are encouraged to report perceived risks to care and to ask questions if they do not understand what they are told or what they should do.
[2022-03-19] MEDS: HYDROcodone/acetaminophen (*CRX) 5-325 MG TABLET 1 TAB PO (20:50)
[2022-03-19] MEDS: guaiFENesin 12 HR 600 MG TABCR PO (20:52)
[2022-03-19] MEDS: METOPROLOL TARTRATE 12.5 MG TABLET PO (20:52)
[2022-03-19] MEDS: traZODone HCL 50 MG TABLET PO (20:53)
[2022-03-19] MEDS: FAMOTIDINE 20 MG TABLET PO (20:53)
[2022-03-19 21:02] LABS: Glucose Point of Care 102 mg/dl (65-105)
--- NOTE | 2022-03-19 21:15 | PC.NURSE ---
Patient ambulated one lap around 2nd floor hallway with SBA and steady gait. No complaints of new pain from walking. No c/o shortness of breath. Patient sitting on side of bed when back to room with call light in reach.
[2022-03-20] VITALS: BP 118/68; PULSE 92; RESP 20; TEMP 36.8; O2SAT 95
[2022-03-20] MEDS: ACETAMINOPHEN 325 MG TABLET 650 MG PO ×2 (01:57→08:36)
--- NOTE | 2022-03-20 03:20 | PC.NURSE ---
Patient very restless all night but says this is how his nights have been since his surgery. Patient ambulated from his room to south end of hallway and back to room with SBA with no assistive device with steady gait. Patient then assisted to get comfortable in a recliner. Call light in reach.
[2022-03-20 03:39] VITALS: BP 124/69; PULSE 88; RESP 20; TEMP 36.7; O2SAT 96
[2022-03-20] MEDS: HYDROcodone/acetaminophen (*CRX) 5-325 MG TABLET 1 TAB PO ×3 (03:47→20:20)
[2022-03-20 07:35] LABS: Glucose Point of Care 94 mg/dl (65-105)
[2022-03-20 08:00] VITALS: BP 115/66; PULSE 83; RESP 20; TEMP 36.5; O2SAT 93
[2022-03-20] MEDS: levoFLOXacin 500 MG/D5W 100 ML 500 MG/100 ML BAG 100 MG IVPB (08:27)
[2022-03-20 08:33] VITALS: PULSE 83
[2022-03-20] MEDS: METOPROLOL TARTRATE 12.5 MG TABLET PO ×2 (08:33→21:12)
[2022-03-20] MEDS: POTASSIUM CHLORIDE 10 MEQ TABLET 30 MEQ PO (08:34)
[2022-03-20] MEDS: LOVASTATIN 20 MG TABLET PO (08:35)
[2022-03-20] MEDS: FUROSEMIDE 20 MG TABLET PO (08:35)
[2022-03-20] MEDS: FINASTERIDE 5 MG TABLET PO (08:37)
[2022-03-20] MEDS: CLOPIDOGREL BISULFATE 75 MG TABLET PO (08:37)
[2022-03-20] MEDS: FAMOTIDINE 20 MG TABLET PO ×2 (08:37→21:16)
[2022-03-20] MEDS: guaiFENesin 12 HR 600 MG TABCR PO ×2 (08:37→21:15)
[2022-03-20] MEDS: ENOXAPARIN 40 MG/0.4 ML SYRINGE SUB-Q (08:38)
[2022-03-20] MEDS: LORATADINE 10 MG TABLET PO (08:38)
[2022-03-20] MEDS: ASPIRIN 81 MG ENTERIC TABLET PO (08:38)
[2022-03-20] MEDS: LIDOCAINE 5% PATCH 1 PATCH TRANSDERM (08:49)
--- NOTE | 2022-03-20 09:40 | PC.NURSE ---
Patient being discharged and readmitted to swing bed.
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
--- NOTE | 2022-03-20 10:37 | PC.NURSE ---
Telemetry discontinued per MACHINE FINISHER order.
[2022-03-20 11:30] LABS: Glucose Point of Care 70 mg/dl (65-105)
[2022-03-20] MEDS: LIDOCAINE 5% PATCH 2 PATCH TRANSDERM (11:32)
[2022-03-20] MEDS: BENZONATATE 100 MG CAPSULE 200 MG PO ×2 (11:33→16:47)
[2022-03-20] MEDS: guaiFENesin 12 HR 600 MG TABCR 1200 MG PO (11:33)
--- NOTE | 2022-03-20 14:54 | PC.NURSE ---
Complex Human Resources Manager assisted patient with shower and shampoo. Patient tolerated well.
[2022-03-20 16:00] VITALS: BP 116/71; PULSE 90; RESP 18; TEMP 36.8; O2SAT 95
[2022-03-20 16:21] LABS: Glucose Point of Care 89 mg/dl (65-105)
[2022-03-20 21:12] VITALS: PULSE 82
[2022-03-20] MEDS: traZODone HCL 50 MG TABLET PO (21:16)
[2022-03-20 21:29] LABS: Glucose Point of Care 112 mg/dl (65-105)
[2022-03-21] VITALS: BP 115/65; PULSE 98; RESP 18; TEMP 36.8; O2SAT 93
[2022-03-21] MEDS: HYDROcodone/acetaminophen (*CRX) 5-325 MG TABLET 1 TAB PO ×4 (02:23→20:20)
[2022-03-21 05:35] LABS: White Blood Count 13.3 K/mm3 (4.8-10.8)
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
[2022-03-21 07:43] LABS: Glucose Point of Care 96 mg/dl (65-105)
[2022-03-21 08:00] VITALS: BP 103/65; PULSE 96; RESP 18; TEMP 36.9; O2SAT 94
[2022-03-21] MEDS: LIDOCAINE 5% PATCH 1 PATCH TRANSDERM (08:21)
[2022-03-21] MEDS: LIDOCAINE 5% PATCH 2 PATCH TRANSDERM (08:22)
[2022-03-21] MEDS: polyethylene glycoL 3350 17 GM POWD.PACK PO (08:25)
[2022-03-21] MEDS: ENOXAPARIN 40 MG/0.4 ML SYRINGE SUB-Q (08:26)
[2022-03-21] MEDS: BENZONATATE 100 MG CAPSULE 200 MG PO ×3 (08:27→17:28)
[2022-03-21 08:28] VITALS: PULSE 96
[2022-03-21] MEDS: POTASSIUM CHLORIDE 10 MEQ TABLET 30 MEQ PO (08:28)
[2022-03-21] MEDS: METOPROLOL TARTRATE 12.5 MG TABLET PO ×2 (08:28→20:20)
[2022-03-21] MEDS: LOVASTATIN 20 MG TABLET PO (08:29)
[2022-03-21] MEDS: FAMOTIDINE 20 MG TABLET PO ×2 (08:30→20:19)
[2022-03-21] MEDS: DOCUSATE SODIUM 100 MG CAPSULE PO ×2 (08:30→20:19)
[2022-03-21] MEDS: LORATADINE 10 MG TABLET PO (08:30)
[2022-03-21] MEDS: CLOPIDOGREL BISULFATE 75 MG TABLET PO (08:31)
[2022-03-21] MEDS: FUROSEMIDE 20 MG TABLET PO (08:31)
[2022-03-21] MEDS: guaiFENesin 12 HR 600 MG TABCR PO ×2 (08:31→20:19)
[2022-03-21] MEDS: FINASTERIDE 5 MG TABLET PO (08:31)
[2022-03-21] MEDS: ASPIRIN 81 MG ENTERIC TABLET PO (08:32)
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
[2022-03-21] MEDS: DICLOFENAC SODIUM 1% 100 GM GEL (*BKC) 1 APPLIC TOPICAL ×4 (11:24→20:17)
[2022-03-21 11:34] LABS: Glucose Point of Care 96 mg/dl (65-105)
[2022-03-21 16:00] VITALS: BP 114/70; PULSE 97; RESP 16; TEMP 36.4; O2SAT 96
[2022-03-21 16:34] LABS: Glucose Point of Care 90 mg/dl (65-105)
--- NOTE | 2022-03-21 18:12 | PC.NURSE ---
Patient c/o clicking sensation in his medial chest. VS taken and WNL. Heart sounds regular and strong. Visual inspection of surgical site normal, with no s/s complication. Patient states that sensation doesn't hurt, but wanted to let us know. Security Assessor educated patient that his sternum will take time to heal and that he needs to be extra careful with using his arms.
[2022-03-21] MEDS: traZODone HCL 50 MG TABLET PO (20:19)
[2022-03-21 20:20] VITALS: PULSE 98
[2022-03-21 20:34] LABS: Glucose Point of Care 122 mg/dl (65-105)
[2022-03-21 23:15] VITALS: BP 100/60; PULSE 99; RESP 16; TEMP 37.2; O2SAT 95
[2022-03-22 05:10] LABS: Hematocrit 33.6 % (37.0-46.0); Mean Corpuscular HGB Conc 32.7 g/dL (32.0-36.0); Mean Corpuscular Hemoglobin 31.9 pg (27.0-31.0); Mean Corpuscular Volume 97.4 fL (78.0-102.0); Mean Platelet Volume 9.7 fl (8.7-11.0); Platelet Count Result 382 K/mm3 (150-420); Red Blood Count 3.45 M/mm3 (4.70-6.10); Red Cell Distribution Width 12.6 % (11.6-14.4); White Blood Count 11.1 K/mm3 (4.8-10.8)
[2022-03-22 05:23] LABS: Anion Gap 4 mmol/L (8-16); Blood Urea Nitrogen 16 mg/dL (7-18); Calcium 8.5 mg/dL (8.5-10.1); Carbon Dioxide 30 mmol/L (21-32); Chloride 104 mmol/L (98-108); Estimated CRCL calculation 73 ml/min; Estimated Glomerular Filt Rate > 60; Glucose 111 mg/dL (70-99); Osmolality Calculated 288 mOsm/kg (285-295); Potassium 4.2 mmol/L (3.5-5.1); Sodium 138 mmol/L (136-145)
[2022-03-22 08:00] VITALS: BP 94/68; PULSE 91; RESP 16; TEMP 36.4; O2SAT 94
[2022-03-22 08:02] LABS: Glucose Point of Care 93 mg/dl (65-105)
[2022-03-22] MEDS: LOVASTATIN 20 MG TABLET PO (09:03)
[2022-03-22 09:04] VITALS: PULSE 92
[2022-03-22] MEDS: METOPROLOL TARTRATE 12.5 MG TABLET PO ×2 (09:04→20:49)
[2022-03-22] MEDS: LORATADINE 10 MG TABLET PO (09:04)
[2022-03-22] MEDS: POTASSIUM CHLORIDE 10 MEQ TABLET 30 MEQ PO (09:04)
[2022-03-22] MEDS: BENZONATATE 100 MG CAPSULE 200 MG PO ×3 (09:05→17:40)
[2022-03-22] MEDS: guaiFENesin 12 HR 600 MG TABCR PO ×2 (09:05→20:48)
[2022-03-22] MEDS: DOCUSATE SODIUM 100 MG CAPSULE PO ×2 (09:05→20:48)
[2022-03-22] MEDS: CLOPIDOGREL BISULFATE 75 MG TABLET PO (09:06)
[2022-03-22] MEDS: ASPIRIN 81 MG ENTERIC TABLET PO (09:06)
[2022-03-22] MEDS: FINASTERIDE 5 MG TABLET PO (09:06)
[2022-03-22] MEDS: FUROSEMIDE 20 MG TABLET PO (09:06)
[2022-03-22] MEDS: DICLOFENAC SODIUM 1% 100 GM GEL (*BKC) 1 APPLIC TOPICAL ×4 (09:07→20:49)
[2022-03-22] MEDS: FAMOTIDINE 20 MG TABLET PO ×2 (09:07→20:48)
[2022-03-22] MEDS: ENOXAPARIN 40 MG/0.4 ML SYRINGE SUB-Q (09:07)
[2022-03-22] MEDS: polyethylene glycoL 3350 17 GM POWD.PACK PO (09:08)
[2022-03-22] MEDS: HYDROcodone/acetaminophen (*CRX) 5-325 MG TABLET 1 TAB PO ×2 (09:14→17:41)
[2022-03-22] MEDS: CARBAMIDE PEROXIDE 6.5% OT SOLN 15 ML BTL 5 DROP EACH EAR ×2 (09:16→17:44)
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
[2022-03-22 12:02] LABS: Glucose Point of Care 65 mg/dl (65-105)
[2022-03-22] MEDS: CYCLOBENZAPRINE HCL 5 MG TABLET PO (12:50)
[2022-03-22 16:00] VITALS: BP 108/61; PULSE 87; RESP 16; TEMP 36.8; O2SAT 97
[2022-03-22 16:39] LABS: Glucose Point of Care 111 mg/dl (65-105)
[2022-03-22] MEDS: traZODone HCL 50 MG TABLET PO (20:48)
[2022-03-22 20:49] VITALS: PULSE 77
[2022-03-22 21:03] LABS: Glucose Point of Care 113 mg/dl (65-105)
[2022-03-22] MEDS: HYDROcodone/acetaminophen (*CRX) 7.5-325 MG TABLET 1 TAB PO (21:59)
[2022-03-22 23:02] VITALS: BP 108/62; PULSE 78; RESP 15; TEMP 36.6; O2SAT 96
[2022-03-23 03:26] LABS: Glucose Point of Care 102 mg/dl (65-105)
[2022-03-23 05:09] LABS: Hematocrit 32.7 % (37.0-46.0); Hemoglobin 10.7 g/dL (12.4-15.3); Mean Corpuscular HGB Conc 32.7 g/dL (32.0-36.0); Mean Corpuscular Hemoglobin 31.6 pg (27.0-31.0); Mean Corpuscular Volume 96.5 fL (78.0-102.0); Mean Platelet Volume 9.4 fl (8.7-11.0); Platelet Count Result 412 K/mm3 (150-420); Red Blood Count 3.39 M/mm3 (4.70-6.10); Red Cell Distribution Width 12.5 % (11.6-14.4); White Blood Count 10.1 K/mm3 (4.8-10.8)
[2022-03-23 05:21] LABS: Anion Gap 7 mmol/L (8-16); Blood Urea Nitrogen 17 mg/dL (7-18); Calcium 8.5 mg/dL (8.5-10.1); Carbon Dioxide 30 mmol/L (21-32); Chloride 104 mmol/L (98-108); Estimated CRCL calculation 72 ml/min; Estimated Glomerular Filt Rate > 60; Glucose 108 mg/dL (70-99); Osmolality Calculated 294 mOsm/kg (285-295); Potassium 4.3 mmol/L (3.5-5.1); Sodium 141 mmol/L (136-145)
[2022-03-23 08:00] VITALS: BP 100/61; PULSE 82; RESP 17; TEMP 36.2; O2SAT 91
[2022-03-23] MEDS: HYDROcodone/acetaminophen (*CRX) 7.5-325 MG TABLET 1 TAB PO (08:16)
[2022-03-23 09:17] VITALS: PULSE 84
[2022-03-23] MEDS: polyethylene glycoL 3350 17 GM POWD.PACK PO (09:17)
[2022-03-23] MEDS: POTASSIUM CHLORIDE 10 MEQ TABLET 30 MEQ PO (09:17)
[2022-03-23] MEDS: METOPROLOL TARTRATE 12.5 MG TABLET PO (09:17)
[2022-03-23] MEDS: ENOXAPARIN 40 MG/0.4 ML SYRINGE SUB-Q (09:17)
[2022-03-23] MEDS: DOCUSATE SODIUM 100 MG CAPSULE PO (09:18)
[2022-03-23] MEDS: ASPIRIN 81 MG ENTERIC TABLET PO (09:18)
[2022-03-23] MEDS: FUROSEMIDE 20 MG TABLET PO (09:18)
[2022-03-23] MEDS: guaiFENesin 12 HR 600 MG TABCR PO (09:18)
[2022-03-23] MEDS: LORATADINE 10 MG TABLET PO (09:18)
[2022-03-23] MEDS: LOVASTATIN 20 MG TABLET PO (09:18)
[2022-03-23] MEDS: FINASTERIDE 5 MG TABLET PO (09:18)
[2022-03-23] MEDS: BENZONATATE 100 MG CAPSULE 200 MG PO ×2 (09:18→13:35)
[2022-03-23] MEDS: FAMOTIDINE 20 MG TABLET PO (09:18)
[2022-03-23] MEDS: CLOPIDOGREL BISULFATE 75 MG TABLET PO (09:18)
[2022-03-23] MEDS: CARBAMIDE PEROXIDE 6.5% OT SOLN 15 ML BTL 5 DROP EACH EAR (09:19)
[2022-03-23] MEDS: DICLOFENAC SODIUM 1% 100 GM GEL (*BKC) 1 APPLIC TOPICAL ×2 (09:19→13:35)
[2022-03-23 12:05] LABS: Glucose Point of Care 98 mg/dl (65-105)
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
--- NOTE | 2022-03-24 10:43 | PC.NURSE ---
Pt states he received and understood his discharge instructions. Pt states his care was fantastic .
== END 2022-03-23 16:15 | disposition home health service (06) ==
LOC: CHSED 15:03 → CHS2ND 17:01
PROVIDERS: Nurse Practitioner; Nurse Practitioner Family; Admitting Provider Internal Medicine; Emergency Provider Emergency Medicine; PCP Family Medicine; Visit Provider Internal Medicine
DX: J95.89 Other postprocedural complications and disorders of respiratory system, not elsewhere classified (principal); J18.9 Pneumonia, unspecified organism; I21.9 Acute myocardial infarction, unspecified; I25.10 Atherosclerotic heart disease of native coronary artery without angina pectoris; I10 Essential (primary) hypertension; E11.9 Type 2 diabetes mellitus without complications; K21.9 Gastro-esophageal reflux disease without esophagitis; N40.0 Benign prostatic hyperplasia without lower urinary tract symptoms; F17.210 Nicotine dependence, cigarettes, uncomplicated; Z95.1 Presence of aortocoronary bypass graft; Z20.822 Contact with and (suspected) exposure to COVID-19; Z79.01 Long term (current) use of anticoagulants; Z95.5 Presence of coronary angioplasty implant and graft; Z79.82 Long term (current) use of aspirin
CPT/HCPCS: 36415; 71045; 80048; 80053; 82948; 83735; 84484; 85027; 85048; 85610; 85730; 87040; 87637; 93005; 96365; 96366; 96372; 97161; 97165; 99285; A9270; G0378; J1650; J1956

== ENCOUNTER 2022-03-31 12:52 | Outpatient (NON) | payer MEDICARE, SELFPAY ==
[2022-03-31 13:22] LABS: Basophils Absolute Auto 0.09 K/mm3 (0.00-0.10); Basophils Percent Auto 0.7 % (0.0-1.0); Eosinophils Absolute Auto 0.28 K/mm3 (0.02-0.50); Eosinophils Percent Auto 2.2 % (1.0-6.0); Hematocrit 37.8 % (37.0-46.0); Hemoglobin 12.1 g/dL (12.4-15.3); Immature Granulocyte Absolute 0.15 K/mm3 (0.00-0.00); Immature Granulocyte Percent A 1.2 % (0.0-0.0); Immature Platelet Fraction Pct 2.3 % (1.0-7.0); Lymphocytes Percent Auto 19.7 % (18.0-42.0); Mean Corpuscular Hemoglobin 30.9 pg (27.0-31.0); Mean Corpuscular Volume 96.4 fL (78.0-102.0); Mean Platelet Volume 9.7 fl (8.7-11.0); Monocytes Absolute Auto 1.03 K/mm3 (0.10-0.90); Monocytes Percent Auto 8.1 % (2.0-11.0); Neutrophils Absolute Auto 8.6 K/mm3 (1.7-7.2); Neutrophils Percent Auto 68.1 % (50.0-70.0); Platelet Count Result 691 K/mm3 (150-420); Red Blood Count 3.92 M/mm3 (4.70-6.10); Red Cell Distribution Width 12.3 % (11.6-14.4); White Blood Count 12.7 K/mm3 (4.8-10.8)
== END 2022-03-31 12:53 | disposition home or self-care (01) ==
LOC: CHSHH 12:55
DX: D72.829 Elevated white blood cell count, unspecified (principal)
CPT/HCPCS: 36415; 85025; 85055

== ENCOUNTER 2022-05-01 03:58 | Emergency (ER) | payer MEDICARE, SELFPAY ==
[2022-05-01] VITALS (8 sets, daily range): BP systolic 75–125; BP diastolic 55–78; PULSE 78–100; RESP 16–20; TEMP 36.4–37.1; O2SAT 94–100
--- NOTE | ~2022-05-01 | XR_ITS ---
Clinical Indication: Covid 19 positive, fever PA and lateral views of the chest: Comparison: 03/19/2022 Findings: The lungs are clear, without evidence of focal consolidation or pleural effusion. Cardiome diastinal silhouette is stable, status post median sternotomy. Bones and soft tissues are unremarkabl e. Impression: Clear lungs. Reviewed, dictated and finalized at location . ING TESTER Impression: Clear lungs.
--- NOTE | 2022-05-01 04:22 | PC.NURSE ---
RN calls ERP to alert of new pt. RN updates ERP on pt. ERP orders COVID/FLU, and Strep PCR tests, CBC, CMP, Mag level, and a 2V chest X-ray to be completed after COVID test returns. RN confirms the orders by reading back to ERP. Orders confirmed and placed.
[2022-05-01 04:47] LABS: Basophils Absolute Auto 0.03 K/mm3 (0.00-0.10); Basophils Percent Auto 0.6 % (0.0-1.0); Eosinophils Absolute Auto 0.16 K/mm3 (0.02-0.50); Eosinophils Percent Auto 3.4 % (1.0-6.0); Hematocrit 39.7 % (37.0-46.0); Hemoglobin 12.9 g/dL (12.4-15.3); Immature Granulocyte Absolute 0.06 K/mm3 (0.00-0.00); Immature Granulocyte Percent A 1.3 % (0.0-0.0); Lymphocytes Absolute Auto 1.24 K/mm3 (1.10-4.50); Lymphocytes Percent Auto 26.1 % (18.0-42.0); Mean Corpuscular HGB Conc 32.5 g/dL (32.0-36.0); Mean Corpuscular Hemoglobin 30.6 pg (27.0-31.0); Mean Corpuscular Volume 94.3 fL (78.0-102.0); Mean Platelet Volume 10.3 fl (8.7-11.0); Monocytes Absolute Auto 0.68 K/mm3 (0.10-0.90); Monocytes Percent Auto 14.3 % (2.0-11.0); Neutrophils Absolute Auto 2.6 K/mm3 (1.7-7.2); Neutrophils Percent Auto 54.3 % (50.0-70.0); Platelet Count Result 194 K/mm3 (150-420); Red Blood Count 4.21 M/mm3 (4.70-6.10); Red Cell Distribution Width 13.8 % (11.6-14.4); White Blood Count 4.8 K/mm3 (4.8-10.8)
[2022-05-01 04:58] LABS: Alanine Aminotransferase 40 U/L (16-63); Albumin Level 3.3 g/dL (3.4-5.0); Alkaline Phosphatase 69 U/L (46-116); Anion Gap 11 mmol/L (8-16); Aspartate Amino Transferase 27 U/L (15-37); Bilirubin,Total 0.3 mg/dL (0.00-1.00); Blood Urea Nitrogen 18 mg/dL (7-18); Calcium 8.7 mg/dL (8.5-10.1); Carbon Dioxide 26 mmol/L (21-32); Chloride 105 mmol/L (98-108); Estimated CRCL calculation 72 ml/min; Estimated Glomerular Filt Rate > 60; Glucose 133 mg/dL (70-99); Magnesium 1.6 mg/dL (1.8-2.4); Osmolality Calculated 297 mOsm/kg (285-295); Sodium 142 mmol/L (136-145); Total Protein 7.1 g/dL (6.4-8.2)
[2022-05-01 05:29] LABS: Influenza A QL RT-PCR Negative (Negative); Influenza B QL RT-PCR Negative (Negative); SARS-CoV-2 RNA PCR Positive (Negative)
--- NOTE | 2022-05-01 05:40 | PC.NURSE ---
tv technician called to inform a system malfunction on the strep test and that she is repeating the test at this time.
[2022-05-01 05:58] LABS: Strep Group A RT-PCR NOT DETECTED (Negative)
--- NOTE | 2022-05-01 06:15 | ED.GENADULT ---
HPI - General Adult General Chief complaint: Unspecified Stated complaint: Fever Source: patient and RN notes reviewed Mode of arrival: ambulatory Limitations: no limitations History of Present Illness Onset (ago): hour(s) (3) Related Data Home Medications Medication Instructions Recorded Confirmed finasteride 5 mg tablet 5 mg PO DAILY 02/13/19 05/01/22 metformin 500 mg tablet 500 mg PO DAILY 02/13/19 05/01/22 metoprolol tartrate 25 mg tablet 12.5 mg PO BID 02/13/19 05/01/22 lovastatin 20 mg tablet 20 mg PO DAILY 07/18/19 05/01/22 aspirin 81 mg tablet,delayed 81 mg PO DAILY 11/14/20 05/01/22 release (Adult Low Dose Aspirin) meclizine 25 mg tablet 25 mg PO TID PRN Dizziness Or 11/14/20 05/01/22 Vertigo clopidogrel 75 mg tablet 75 mg PO DAILY 03/19/22 05/01/22 Allergies Allergy/AdvReac Type Severity Reaction Status Date / Time Penicillins Allergy Unknown Unknown Verified 05/01/22 04:09 carbamazepine [From Tegretol] Allergy Unknown Verified 05/01/22 04:09 clindamycin Allergy Unknown Verified 05/01/22 04:09 ketorolac [From Toradol] AdvReac Hallucinati Verified 05/01/22 04:09 ng tramadol AdvReac Hallucinati Verified 05/01/22 04:09 ng PMFSH Past Medical History Medical History Bloating BPH (benign prostatic hyperplasia) CAD (coronary artery disease) Colon cancer screening Diabetes mellitus Gastroesophageal reflux disease History of heart attack Hypertension Non-cardiac chest pain Tobacco abuse Type 2 diabetes mellitus Surgical History Surgical History History of coronary artery stent placement x2 Social History Social History Smoking packs per day: 1.5 Smoking cigarettes per day: 30.0 Smoking status: Current every day smoker Tobacco type: cigarettes Alcohol intake: never Substance use: current Substance use type: marijuana Lack of Transportation: No Lack of Food: Never True Current Housing: I Have Housing Concerned About Future Housing: No Difficulty Paying Gas/Electric Bills: No Difficulty Paying for Meds: No Currently Unemployed: No Education: High School Diploma/GED Difficulty w/ Childcare or Family Care: No Living arrangements: alone Gender identity (if verbalized by the patient): Male Spiritual care concerns: No Course Vital Signs Vital signs: Vital Signs Temperature 37.1 C 05/01/22 04:00 Pulse Rate 100 05/01/22 04:00 Respiratory Rate 20 05/01/22 04:00 Blood Pressure 114/78 05/01/22 04:00 Pulse Oximetry 95 05/01/22 04:00 Oxygen Delivery Room Air 05/01/22 04:00 Temperature 37.1 C 05/01/22 04:00 Pulse Rate 100 05/01/22 04:00 Respiratory Rate 20 05/01/22 04:00 Blood Pressure 114/78 05/01/22 04:00 Pulse Oximetry 95 05/01/22 04:00 Oxygen Delivery Room Air 05/01/22 04:00 Medical Decision Making Vital Signs Vital Signs: Vital Signs Temperature 37.1 C 05/01/22 04:00 Pulse Rate 100 05/01/22 04:00 Respiratory Rate 20 05/01/22 04:00 Blood Pressure 114/78 05/01/22 04:00 Pulse Oximetry 95 05/01/22 04:00 Oxygen Delivery Room Air 05/01/22 04:00 Temperature 37.1 C 05/01/22 04:00 Pulse Rate 100 05/01/22 04:00 Respiratory Rate 20 05/01/22 04:00 Blood Pressure 114/78 05/01/22 04:00 Pulse Oximetry 95 05/01/22 04:00 Oxygen Delivery Room Air 05/01/22 04:00 Lab Data 05/01/22 04:43 05/01/22 04:43 Labs: Lab Results 05/01/22 05/01/22 05/01/22 Range/Units 04:41 04:43 04:43 WBC 4.8 (4.8-10.8) K/mm3 RBC 4.21 L (4.70-6.10) M/mm3 Hgb 12.9 (12.4-15.3) g/dL Hct 39.7 (37.0-46.0) % MCV 94.3 (78.0-102.0) fL MCH 30.6 (27.0-31.0) pg MCHC 32.5 (32.0-36.0) g/dL RDW 13.8 (11.6-14.4) % Plt Count 194 (150-420) K/mm3 MPV 10.3 (8.7-11.0)
--- NOTE | 2022-05-01 06:17 | ED.URI ---
HPI - URI/Sore Throat General Chief Complaint: Unspecified Stated Complaint: Fever Time Seen by Provider: 05/01/22 07:14 Source: patient and RN notes reviewed Mode of arrival: ambulatory Limitations: no limitations History of Present Illness MD elicited complaint: fever, sore throat, rhinorrhea and nasal congestion Onset (ago): hour(s) (3) Consistency: constant Severity: moderate Description of mucous: clear Able to tolerate fluids by mouth: Yes Exacerbating factors: nothing Relieving factors: nothing Context: other(s) with similar symptoms Associated symptoms: myalgias Treatments prior to arrival: none Related Data Home Medications Medication Instructions Recorded Confirmed finasteride 5 mg tablet 5 mg PO DAILY 02/13/19 05/01/22 metformin 500 mg tablet 500 mg PO DAILY 02/13/19 05/01/22 metoprolol tartrate 25 mg tablet 12.5 mg PO BID 02/13/19 05/01/22 lovastatin 20 mg tablet 20 mg PO DAILY 07/18/19 05/01/22 aspirin 81 mg tablet,delayed 81 mg PO DAILY 11/14/20 05/01/22 release (Adult Low Dose Aspirin) meclizine 25 mg tablet 25 mg PO TID PRN Dizziness Or 11/14/20 05/01/22 Vertigo clopidogrel 75 mg tablet 75 mg PO DAILY 03/19/22 05/01/22 Allergies Allergy/AdvReac Type Severity Reaction Status Date / Time Penicillins Allergy Unknown Unknown Verified 05/01/22 04:09 carbamazepine [From Tegretol] Allergy Unknown Verified 05/01/22 04:09 clindamycin Allergy Unknown Verified 05/01/22 04:09 ketorolac [From Toradol] AdvReac Hallucinati Verified 05/01/22 04:09 ng tramadol AdvReac Hallucinati Verified 05/01/22 04:09 ng Review of Systems Review of Systems: All systems reviewed & are unremarkable except as noted in HPI and below PMFSH Past Medical History Medical History Bloating BPH (benign prostatic hyperplasia) CAD (coronary artery disease) Colon cancer screening Diabetes mellitus Gastroesophageal reflux disease History of heart attack Hypertension Non-cardiac chest pain Tobacco abuse Type 2 diabetes mellitus Surgical History Surgical History History of coronary artery stent placement x2 Social History Social History Smoking packs per day: 1.5 Smoking cigarettes per day: 30.0 Smoking status: Current every day smoker Tobacco type: cigarettes Alcohol intake: never Substance use: current Substance use type: marijuana Lack of Transportation: No Lack of Food: Never True Current Housing: I Have Housing Concerned About Future Housing: No Difficulty Paying Gas/Electric Bills: No Difficulty Paying for Meds: No Currently Unemployed: No Education: High School Diploma/GED Difficulty w/ Childcare or Family Care: No Living arrangements: alone Gender identity (if verbalized by the patient): Male Spiritual care concerns: No Exam Const: General: healthy appearing, no acute distress and alert Nutritional Appearance: well nourished Orientation/consciousness: patient oriented x3 Limitations: no limitations HENMT: Head: normal to inspection Ears: external ears normal Eyes: Conjunctivae: conjunctivae normal Pupils: Equal, round and reactive pupils present EOM: EOMs intact bilaterally Neck: Neck: normal visual inspection Resp: Effort & Inspection: normal respiratory effort Auscultation: clear to auscultation bilaterally Cardio: Rate: regular rate Rhythm: regular rhythm GI: GI Palp: Yes Soft to palpation and No Tenderness to palpation present (GI) Auscultation: normal bowel sounds Back/Spine/Pelvis: Cervical Spine: cervical ROM normal Thoracic/Lumbar Spine: thoraco-lumbar ROM normal Skin: General skin exam: normal color Rashes: no rashes Neuro: General: patient oriented x3, moves all extremities, no focal motor deficits and CN's II-XI intact bilaterally Speech: normal speech Gait exam (Neuro): N
--- NOTE | 2022-05-01 06:50 | PC.NURSE ---
While getting DC instructs pt states that he has to use the bathroom for diarrhea and while using the bathroom he starts to have an episode of emesis. States he just started to feel sick to his stomach in the past few minutes. Reported to ERP. New orders received.
[2022-05-01] MEDS: ONDANSETRON HCL ODT 4 MG TABLET PO (07:01)
--- NOTE | 2022-05-01 07:17 | PC.NURSE ---
After giving pt his zofran, RN takes another set of vitals and pt's bp is hypotensive. RN rechecks manually and gets 84/54. Reports to ERP. New orders received. Report given to KEARA Jaimes.
--- NOTE | 2022-05-01 07:25 | ECG_ITS ---
Measurements Intervals [place] Rate: 84 P: -61 NV: 113 QRS: -1 QRSD: 96 T: 81 QT: 367 QTc: 435 Interpretive Statements SINUS RHYTHM WITH ECTOPIC ATRIAL BEATS, PREMATURE VENTRICULAR CONTRACTIONS AND PREMATURE ATRIAL CONTRACTIONS NONSPECIFIC T-WAVE ABNORMALITY BORDERLINE ECG COMPARED TO ECG 03/19/2022 15:00:31 ECTOPIC ATRIAL BEATS APPRECIATED Electronically Signed On 05-01-2022 13:51:12 NOCTURNIST by Anders West M.D.
--- NOTE | 2022-05-01 07:25 | ED.GENADULT ---
HPI - General Adult General Chief complaint: Unspecified Stated complaint: Fever Time Seen by Provider: 05/01/22 07:14 Source: patient and RN notes reviewed Mode of arrival: ambulatory Limitations: no limitations History of Present Illness HPI narrative: I took over in the management of this patient from previous provider. The patient had already been discharged but the blood pressure at the time of discharge was 83/61, 75/56. His discharge was held. Additional workup was done including an EKG. Additional blood work was ordered. 2 L of IV fluids were ordered. 09:00 am: The workup is unremarkable otherwise. The D dimer is a bit elevated, likely within acceptable limits for age and COVID. Repeat BP is 116/75 after IV fluids. He looks better. More stable BP's. Nausea/vomiting resolved. Magnesium given. Will discharge home. All questions answered. Related Data Home Medications Medication Instructions Recorded Confirmed finasteride 5 mg tablet 5 mg PO DAILY 02/13/19 05/01/22 metformin 500 mg tablet 500 mg PO DAILY 02/13/19 05/01/22 metoprolol tartrate 25 mg tablet 12.5 mg PO BID 02/13/19 05/01/22 lovastatin 20 mg tablet 20 mg PO DAILY 07/18/19 05/01/22 aspirin 81 mg tablet,delayed 81 mg PO DAILY 11/14/20 05/01/22 release (Adult Low Dose Aspirin) meclizine 25 mg tablet 25 mg PO TID PRN Dizziness Or 11/14/20 05/01/22 Vertigo clopidogrel 75 mg tablet 75 mg PO DAILY 03/19/22 05/01/22 Allergies Allergy/AdvReac Type Severity Reaction Status Date / Time Penicillins Allergy Unknown Unknown Verified 05/01/22 04:09 carbamazepine [From Tegretol] Allergy Unknown Verified 05/01/22 04:09 clindamycin Allergy Unknown Verified 05/01/22 04:09 ketorolac [From Toradol] AdvReac Hallucinati Verified 05/01/22 04:09 ng tramadol AdvReac Hallucinati Verified 05/01/22 04:09 ng Review of Systems Review of Systems: All systems reviewed & are unremarkable except as noted in HPI and below Constitutional: Constitutional: Reports as per HPI, Reports no additional constitutional complaints, Denies chills, Reports excessive sweating, Reports fatigue, Denies fever(s), Denies headache(s) and Denies weakness Eyes: Eyes: Reports as per HPI, Reports no additional eye complaints, Denies change in vision and Denies photophobia ENT: Reports system reviewed and no additional complaints, except as documented, Reports as per HPI, Denies dysphagia, Denies vertigo, Denies dizziness, Denies headache(s), Denies lip swelling, Reports nasal congestion, Reports sore throat, Denies throat swelling and Denies tongue swelling Comments: rhinorrhea Cardiovascular: Cardiovascular: Reports as per HPI, Reports no additional cardiovascular complaints, Denies chest pain, Denies syncope, Denies rapid heart rate and Denies dyspnea Respiratory: Respiratory: Reports as per HPI, Reports no additional respiratory complaints, Denies chest congestion, Denies cough, Denies dyspnea and Denies wheezing Gastrointestinal: Gastrointestinal: Reports as per HPI, Reports no additional gastrointestinal complaints, Denies abdominal pain, Denies constipation, Denies dysphagia, Reports diarrhea, Denies nausea and Denies vomiting Genitourinary: Genitourinary: Reports as per HPI, Denies hematuria, Denies oliguria, Denies dysuria, Denies urinary frequency, Denies urinary incontinence and Denies urinary urgency Musculoskeletal: Musculoskeletal: Reports no additional musculoskeletal complaints, Denies back pain, Denies myalgias, Denies arthralgias, Denies joint swelling and Denies numbness Integumentary/Breasts: Skin/Breast: Reports system reviewed and no additional complaints, except as docu, Denies pruritus, Denies erythema, Denies rash and Denies skin ulcer Neurologic: Reports system reviewed and no additional complaints, except as documented, Reports as per HPI, Denies confusion, Denies vertigo, Denies dizziness, Denies syncope, Denies headache(s), Denies focal weakness, Denies numbness and
[2022-05-01] MEDS: SODIUM CHLORIDE 0.9% IV 1,000 ML 999 ML IV CONT ×2 (07:32→07:35)
[2022-05-01] MEDS: MAGNESIUM SULF 2 GM/WATER 50ML 2 GM/50 ML BAG IVPB (07:34)
[2022-05-01 08:29] LABS: D Dimer 1.28 mg/L (0.19-0.50)
[2022-05-01 08:31] LABS: Lactic Acid Reflex 1.3 mmol/L (0.4-2.0)
[2022-05-01 08:45] LABS: NT Pro B Type Natriuretic Pept 127 pg/mL (0-125)
[2022-05-01 08:47] LABS: CRP 0.7 mg/dL (0.0-0.9)
[2022-05-01 09:16] LABS: Erythrocyte Sedimentation Rate 16 mm/hr (0-20)
== END 2022-05-01 09:58 | disposition home or self-care (01) ==
PROVIDERS: Emergency Medicine; Emergency Provider Emergency Medicine; PCP Family Medicine
DX: U07.1 COVID-19 (principal); E83.42 Hypomagnesemia; I95.9 Hypotension, unspecified; E11.9 Type 2 diabetes mellitus without complications; I10 Essential (primary) hypertension; I25.10 Atherosclerotic heart disease of native coronary artery without angina pectoris; I25.2 Old myocardial infarction; F17.210 Nicotine dependence, cigarettes, uncomplicated; Z79.82 Long term (current) use of aspirin; Z79.84 Long term (current) use of oral hypoglycemic drugs
CPT/HCPCS: 36415; 71046; 80053; 83605; 83735; 83880; 84484; 85025; 85380; 85652; 86140; 87636; 87651; 93005; 96365; 96372; 99284; A9270; J1100; J3475; J7030

== ENCOUNTER 2022-08-18 08:00 | Outpatient (RCR) | payer MEDICARE, SELFPAY | END 2022-09-13 23:59 | disposition home or self-care (01) | PROVIDERS: PCP Family Medicine; Visit Provider Specialist | DX: Z95.1 Presence of aortocoronary bypass graft (principal) | CPT/HCPCS: 93798 ==

== ENCOUNTER 2022-09-07 08:13 | Outpatient (CLI) | payer MEDICARE, SELFPAY ==
--- NOTE | ~2022-09-07 | XR_ITS ---
Left ankle Technique: AP, oblique, and lateral views were obtained. Clinical History: Sprain Findings: No acute fracture or dislocation is seen. Osseous alignment is anatomic. Ankle mortise and other visualized joint spaces are preserved. 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 Impression: No fracture or dislocation. 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 Reviewed, dictated and finalized at location . Impression: No fracture or dislocation. 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
--- NOTE | ~2022-09-07 | XR_ITS ---
Right foot Technique: AP, oblique, and lateral views were obtained. Clinical History: Lisfranc injury Findings: No acute fracture or dislocation is seen. Osseous alignment is anatomic. Joint spaces are p reserved without erosive or degenerative change. Soft tissues are unremarkable. Impression: Unremarkable right foot radiographs. Reviewed, dictated and finalized at location . Impression: Unremarkable right foot radiographs.
== END 2022-09-07 08:14 | disposition home or self-care (01) ==
LOC: CHSIMG 08:16
PROVIDERS: PCP Family Medicine; Visit Provider Student in an Organized Health Care Education/Training Program
DX: S93.402A Sprain of unspecified ligament of left ankle, initial encounter (principal); S99.921A Unspecified injury of right foot, initial encounter
CPT/HCPCS: 73610; 73630

== ENCOUNTER 2022-09-15 07:19 | Outpatient (RCR) | payer MEDICARE, SELFPAY | END 2022-09-29 14:26 | disposition home or self-care (01) | PROVIDERS: PCP Family Medicine; Visit Provider Specialist | DX: Z95.1 Presence of aortocoronary bypass graft (principal) | CPT/HCPCS: 93798 ==

== ENCOUNTER 2022-12-21 07:59 | Outpatient (CLI) | payer MEDICARE, SELFPAY ==
--- NOTE | ~2022-12-21 | CT_ITS ---
CT Scan of the Chest without Contrast: Clinical Indication: Lung cancer screening, personal history of nicotine dependence Technique: Contiguous sections were acquired throughout the chest without intravenous contrast. Dose reduction technique was used on this scan by utilizing automated exposure control and iterative recon struction technique. The dose-length product (DLP) was 171.87 mGy-cm. COMPARISON: 12/20/2021 Findings: There is no evidence of any significant mediastinal, hilar or axillary lymphadenopathy. Extensive cor onary artery calcifications are present. There is no evidence of pleural or pericardial effusion. The lungs are clear. No pulmonary nodules or infiltrates are noted. Images through the upper abdomen reveal no abnormalities. Impression: Lung RADS 1: Negative. 12 month follow-up screening CT advised. Reviewed, dictated and finalized at location . Impression: Lung RADS 1: Negative. 12 month follow-up screening CT advised.
== END 2022-12-21 08:00 | disposition home or self-care (01) ==
LOC: CHSIMG 07:59
PROVIDERS: PCP Family Medicine; Visit Provider Family Medicine
DX: Z12.2 Encounter for screening for malignant neoplasm of respiratory organs (principal); Z87.891 Personal history of nicotine dependence
CPT/HCPCS: 71271

== ENCOUNTER 2023-02-24 20:21 | Emergency (ER) | payer MEDICARE, SELFPAY ==
[2023-02-24] VITALS (31 sets, daily range): BP systolic 81–154; BP diastolic 49–88; PULSE 85–109; RESP 15–20; TEMP 36.8; O2SAT 90–95
--- NOTE | ~2023-02-24 | XR_ITS ---
XR chest 1V portable 02/24/2023 20:36 Indication: Chest pain Procedure: AP portable chest Comparison: Comparison to multiple prior studies sequentially, with oldest reviewed study dated 04/2021. Findings: Status post median sternotomy for CABG. Heart size normal. Mild pulmonary vascular congesti on. No pleural effusion or pneumothorax. No acute osseous abnormality. Impression: 1: Mild pulmonary vascular congestion. Reviewed, dictated and finalized at location A. PULLER Impression: 1: Mild pulmonary vascular congestion.
--- NOTE | 2023-02-24 20:27 | ECG_ITS ---
Measurements Intervals [place] Rate: 106 P: 57 RI: 134 QRS: -13 QRSD: 109 T: 86 QT: 336 QTc: 447 Interpretive Statements SINUS TACHYCARDIA WITH OCCASIONAL VENTRICULAR PREMATURE COMPLEXES INCOMPLETE RIGHT BUNDLE BRANCH BLOCK [90+ ms QRS DURATION, TERMINAL R IN V1/V2, 40+ ms S IN I/aVL/V4/V5/V6] COMPARED TO APRIL 24, THE RATE IS FASTER AND PVCS ARE NEW Electronically Signed On 02-26-2023 13:58:45 RESEARCH ANTHROPOLOGIST by Vesna Clemens M.D.
[2023-02-24] MEDS: ASPIRIN 81 MG CHEWABLE TABLET 324 MG PO (20:35)
[2023-02-24 20:40] LABS: Basophils Absolute Auto 0.08 K/mm3 (0.00-0.10); Basophils Percent Auto 0.7 % (0.0-1.0); Eosinophils Absolute Auto 0.33 K/mm3 (0.02-0.50); Eosinophils Percent Auto 2.7 % (1.0-6.0); Hematocrit 50.5 % (37.0-46.0); Hemoglobin 16.6 g/dL (12.4-15.3); Immature Granulocyte Absolute 0.11 K/mm3 (0.00-0.00); Immature Granulocyte Percent A 0.9 % (0.0-0.0); Lymphocytes Absolute Auto 3.38 K/mm3 (1.10-4.50); Lymphocytes Percent Auto 27.6 % (18.0-42.0); Mean Corpuscular HGB Conc 32.9 g/dL (32.0-36.0); Mean Corpuscular Hemoglobin 31.4 pg (27.0-31.0); Mean Corpuscular Volume 95.5 fL (78.0-102.0); Monocytes Absolute Auto 0.99 K/mm3 (0.10-0.90); Monocytes Percent Auto 8.1 % (2.0-11.0); Neutrophils Absolute Auto 7.4 K/mm3 (1.7-7.2); Platelet Count Result 259 K/mm3 (150-420); Red Blood Count 5.29 M/mm3 (4.70-6.10); Red Cell Distribution Width 12.5 % (11.6-14.4); White Blood Count 12.3 K/mm3 (4.8-10.8)
[2023-02-24] MEDS: NITROGLYCERIN SL 0.4 MG TABLET (20:43)
[2023-02-24] MEDS: NITROGLYCERIN SL 0.4 MG TABLET SUBLINGUAL ×2 (20:49→21:00)
[2023-02-24 20:54] LABS: D Dimer 0.38 mg/L (0.19-0.50); Prothrombin Time 10.6 Seconds (9.50-12.10)
[2023-02-24] MEDS: PANTOPRAZOLE SODIUM IV 40 MG VIAL 80 MG IV PUSH (20:59)
[2023-02-24] MEDS: SODIUM CHLORIDE 0.9% IV 500 ML 999 ML IV CONT (20:59)
[2023-02-24 21:03] LABS: Alanine Aminotransferase 32 U/L (16-63); Alkaline Phosphatase 90 U/L (46-116); Anion Gap 6 mmol/L (8-16); Aspartate Amino Transferase 14 U/L (15-37); Bilirubin,Total 0.4 mg/dL (0.00-1.00); Blood Urea Nitrogen 18 mg/dL (7-18); Calcium 9.6 mg/dL (8.5-10.1); Carbon Dioxide 31 mmol/L (21-32); Chloride 100 mmol/L (98-108); Estimated CRCL calculation 59 ml/min; Estimated Glomerular Filt Rate > 60; Glucose 112 mg/dL (70-99); Lipase 33 U/L (16-77); NT Pro B Type Natriuretic Pept 33 pg/mL (0-125); Osmolality Calculated 286 mOsm/kg (285-295); Potassium 3.9 mmol/L (3.5-5.1); Sodium 137 mmol/L (136-145); Total Protein 7.2 g/dL (6.4-8.2); Troponin I 9.8 ng/L (0.00-60.4)
--- NOTE | 2023-02-24 21:05 | PC.NURSE ---
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
--- NOTE | 2023-02-24 21:07 | ED.CHESTPAIN ---
HPI - Chest Pain General Chief Complaint: Chest Pain Stated Complaint: chest pain Time Seen by Provider: 02/24/23 20:27 Source: patient Mode of arrival: ambulatory Limitations: no limitations History of Present Illness HPI narrative: this 72-year-old male that presents with chest pressure midsternal and epigastric for the last 2hours has been having some increased epigastric burning, with no shortness of breath no nausea vomiting no radiation of his pain. The patient does have a history CAD with in March 06 has a history hypertension diabetes a smoker. Currently no nausea vomiting no shortness of breath no chills. The patient found out earlier today that his brother is diagnosed with cancer. MD complaint: chest discomfort Pertinent past history: coronary artery disease Onset (ago): hour(s) Timing of current episode: constant Prior episodes: Yes Onset: during rest Pain location: substernal and epigastric Pain radiation: none Severity: moderate Quality: fullness Relieving factors: nitroglycerin and medication-other Related Data Home Medications Medication Instructions Recorded Confirmed finasteride 5 mg tablet 5 mg PO DAILY 02/13/19 05/01/22 metformin 500 mg tablet 500 mg PO DAILY 02/13/19 05/01/22 metoprolol tartrate 25 mg tablet 12.5 mg PO BID 02/13/19 05/01/22 lovastatin 20 mg tablet 20 mg PO DAILY 07/18/19 05/01/22 aspirin 81 mg tablet,delayed 81 mg PO DAILY 11/14/20 05/01/22 release (Adult Low Dose Aspirin) meclizine 25 mg tablet 25 mg PO TID PRN Dizziness Or 11/14/20 05/01/22 Vertigo clopidogrel 75 mg tablet 75 mg PO DAILY 03/19/22 05/01/22 Allergies Allergy/AdvReac Type Severity Reaction Status Date / Time Penicillins Allergy Unknown Unknown Verified 02/24/23 20:42 carbamazepine [From Tegretol] Allergy Unknown Verified 02/24/23 20:42 clindamycin Allergy Unknown Verified 02/24/23 20:42 ketorolac [From Toradol] AdvReac Hallucinati Verified 02/24/23 20:42 ng tramadol AdvReac Hallucinati Verified 02/24/23 20:42 ng Review of Systems Review of Systems: All systems reviewed & are unremarkable except as noted in HPI and below PMFSH Past Medical History Medical History Bloating BPH (benign prostatic hyperplasia) CAD (coronary artery disease) Colon cancer screening Diabetes mellitus Gastroesophageal reflux disease History of heart attack Hypertension Non-cardiac chest pain Tobacco abuse Type 2 diabetes mellitus Surgical History Surgical History History of coronary artery stent placement x2 Social History Social History Smoking packs per day: 1.5 Smoking cigarettes per day: 30.0 Smoking status: Current every day smoker Tobacco type: cigarettes Alcohol intake: never Substance use: current Substance use type: marijuana Lack of Transportation: No Lack of Food: Never True Current Housing: I Have Housing Concerned About Future Housing: No Difficulty Paying Gas/Electric Bills: No Difficulty Paying for Meds: No Currently Unemployed: No Education: High School Diploma/GED Difficulty w/ Childcare or Family Care: No Living arrangements: alone Gender identity (if verbalized by the patient): Male Spiritual care concerns: No Exam Const: General: no acute distress Nutritional Appearance: well nourished Orientation/consciousness: patient oriented x3 Limitations: no limitations Neck: Neck: normal visual inspection and no lymphadenopathy Chest: Chest palpation & inspection: normal inspection of the chest Resp: Effort & Inspection: normal respiratory effort Auscultation: clear to auscultation bilaterally Cardio: Rate: regular rate Rhythm: regular rhythm GI: GI Palp: Yes Soft to palpation and Yes Tenderness to palpation present (GI) Auscultation: normal bowel sounds Skin: Genera
[2023-02-24] MEDS: MAG HYDROX/ALUMINUM HYD/SIMETH 30 ML, PHENobarb/HYOSCY/ATROPINE/SCOP 32.4 MG, LIDOCAINE... PO (21:41)
[2023-02-24 22:19] LABS: Appearance Urine Clear (Clear); Bilirubin Urine Negative (Negative); Blood Urine Negative (Negative); Color Urine Yellow (Yellow); Glucose Urine UA Negative (Negative); Ketones Urine Negative (Negative); Leukocyte Esterase Ur Negative LEU/UL (Negative); Nitrate Urine Negative (Negative); Protein Urine Negative (Negative); Specific Grav Ur 1.025 (1.010-1.020); Urobilinogen Urine 0.2 mg/dL (0.2-1.0)
[2023-02-24 22:20] LABS: Add Urine Microscopic? NO
[2023-02-24 23:53] LABS: Troponin I 11.1 ng/L (0.00-60.4)
[2023-02-25 00:01] VITALS: BP 116/81; PULSE 85; RESP 18; O2SAT 95
== END 2023-02-25 00:14 | disposition home or self-care (01) ==
PROVIDERS: Emergency Provider Emergency Medicine; PCP Family Medicine
DX: K21.9 Gastro-esophageal reflux disease without esophagitis (principal); I25.10 Atherosclerotic heart disease of native coronary artery without angina pectoris; I10 Essential (primary) hypertension; E11.9 Type 2 diabetes mellitus without complications; F17.210 Nicotine dependence, cigarettes, uncomplicated
CPT/HCPCS: 36415; 71045; 80053; 81003; 83690; 83880; 84484; 85025; 85380; 85610; 85730; 93005; 96361; 96374; 99284; A9270; C9113; J7030; J7040

== ENCOUNTER 2023-04-22 11:29 | Emergency (ER) | payer MEDICARE, SELFPAY ==
[2023-04-22] VITALS (36 sets, daily range): BP systolic 113–140; BP diastolic 67–107; PULSE 57–78; RESP 15–21; TEMP 36.9; O2SAT 93–99
--- NOTE | ~2023-04-22 | XR_ITS ---
EXAMINATION: XR chest 1V portable DATE: 04/22/2023 12:00 INDICATION: Midsternal chest pain TECHNIQUE: frontal view of the chest was obtained. COMPARISON: Chest radiograph dated 02/24/2023 FINDINGS: The lungs remain clear with no focal airspace opacities, pulmonary edema, pleural effusion or pneumot horax. The cardiomediastinal silhouette is normal. Median sternotomy wires and mediastinal surgical c lips are seen, likely from prior coronary artery bypass grafting. IMPRESSION: 1. No acute cardiopulmonary disease. Reviewed, dictated and finalized at location A. ATION CONTROL TECHNICIAN
--- NOTE | 2023-04-22 11:40 | ECG_ITS ---
Measurements Intervals [place] Rate: 76 P: 52 WI: 113 QRS: 40 QRSD: 104 T: 14 QT: 389 QTc: 440 Interpretive Statements SINUS RHYTHM WITH SHORT WI INTERVAL NONSPECIFIC T-WAVE ABNORMALITY COMPARED TO ECG 02/24/2023 20:28:57 SINUS RHYTHM NOW PRESENT T-WAVE ABNORMALITY NOW PRESENT Electronically Signed On 04-23-2023 18:17:27 PIPEFITTER WELDER by Anders West M.D.
--- NOTE | 2023-04-22 11:42 | ED.GENADULT ---
HPI - General Adult General Chief complaint: Chest Pain Stated complaint: CHEST DISCOMFORT History of Present Illness HPI narrative: this is a 72-year-old male presenting to ED with 2 days of chest discomfort. Patient states that he developed pressure in the center of his chest that is nonradiating, 1/2 in intensity constant. He has had this pain in the past which he attributes to reflux. Says it is improved when he lays down. No exacerbating symptoms he has had recent diarrhea and some dizziness. He denies exertional component, nausea vomiting or diaphoresis. Patient has been seen multiple times in the emergency department for GERD symptoms. Related Data Home Medications Medication Instructions Recorded Confirmed finasteride 5 mg tablet 5 mg PO DAILY 02/13/19 04/22/23 metformin 500 mg tablet 500 mg PO DAILY 02/13/19 04/22/23 metoprolol tartrate 25 mg tablet 12.5 mg PO BID 02/13/19 04/22/23 lovastatin 20 mg tablet 20 mg PO DAILY 07/18/19 04/22/23 aspirin 81 mg tablet,delayed 81 mg PO DAILY 11/14/20 04/22/23 release (Adult Low Dose Aspirin) meclizine 25 mg tablet 25 mg PO TID PRN Dizziness Or 11/14/20 04/22/23 Vertigo Allergies Allergy/AdvReac Type Severity Reaction Status Date / Time Penicillins Allergy Unknown Unknown Verified 02/24/23 20:42 carbamazepine [From Tegretol] Allergy Unknown Verified 02/24/23 20:42 clindamycin Allergy Unknown Verified 02/24/23 20:42 ketorolac [From Toradol] AdvReac Hallucinati Verified 02/24/23 20:42 ng tramadol AdvReac Hallucinati Verified 02/24/23 20:42 ng PMFSH Past Medical History Medical History Bloating BPH (benign prostatic hyperplasia) CAD (coronary artery disease) Colon cancer screening Diabetes mellitus Gastroesophageal reflux disease History of heart attack Hypertension Non-cardiac chest pain Tobacco abuse Type 2 diabetes mellitus Surgical History Surgical History History of coronary artery stent placement x2 Social History Social History Smoking packs per day: 1.5 Smoking cigarettes per day: 30.0 Smoking status: Current every day smoker Tobacco type: cigarettes Alcohol intake: never Substance use: current Substance use type: marijuana Lack of Transportation: No Lack of Food: Never True Current Housing: I Have Housing Concerned About Future Housing: No Difficulty Paying Gas/Electric Bills: No Difficulty Paying for Meds: No Currently Unemployed: No Education: High School Diploma/GED Difficulty w/ Childcare or Family Care: No Living arrangements: alone Gender identity (if verbalized by the patient): Male Spiritual care concerns: No Exam Narrative: APPEARANCE: No apparent distress. Head: atraumatic. EYES: EOMI, NOSE: Atraumatic NECK: Trachea midline RESPIRATORY: No increased rate of breathing, CTAB CARDIOVASCULAR: RRR, no peripheral edema ABDOMINAL: Non-distended Soft nontender MUSCULOSKELETAl: No obvious deformities NEURO: Alert. Moving 4/4 extremities SKIN:: Warm, dry. Normal color PSYCHIATRIC: Normal affect Course Vital Signs Vital signs: Vital Signs Temperature 98.4 F 04/22/23 11:34 Pulse Rate 77 04/22/23 11:34 Respiratory Rate 20 04/22/23 11:34 Blood Pressure 135/83 04/22/23 11:34 Pulse Oximetry 97 04/22/23 11:34 Oxygen Delivery Room Air 04/22/23 11:34 Temperature 98.4 F 04/22/23 11:34 Pulse Rate 57 L 04/22/23 14:01 Respiratory Rate 19 04/22/23 14:01 Blood Pressure 113/67 04/22/23 14:01 Pulse Oximetry 95 04/22/23 14:01 Oxygen Delivery Room Air 04/22/23 14:01 Medical Decision Making [facility] Narrative Medical decision making narrative: -Course:72-year-old male with history of coronary artery disease and GERD presenting with chest discomfort. Cardiac workup was negativ
[2023-04-22] MEDS: MAG HYDROX/AL HYDROX/SIMETH 30 ML UDC PO (11:55)
[2023-04-22] MEDS: FAMOTIDINE 20 MG/2 ML VIAL IV PUSH (11:55)
[2023-04-22 11:58] LABS: Basophils Absolute Auto 0.07 K/mm3 (0.00-0.10); Basophils Percent Auto 0.7 % (0.0-1.0); Eosinophils Absolute Auto 0.29 K/mm3 (0.02-0.50); Eosinophils Percent Auto 2.7 % (1.0-6.0); Hematocrit 47.8 % (37.0-46.0); Hemoglobin 15.9 g/dL (12.4-15.3); Immature Granulocyte Percent A 0.9 % (0.0-0.0); Lymphocytes Absolute Auto 3.07 K/mm3 (1.10-4.50); Lymphocytes Percent Auto 28.6 % (18.0-42.0); Mean Corpuscular HGB Conc 33.3 g/dL (32.0-36.0); Mean Corpuscular Volume 93.2 fL (78.0-102.0); Mean Platelet Volume 10.8 fl (8.7-11.0); Monocytes Absolute Auto 0.73 K/mm3 (0.10-0.90); Monocytes Percent Auto 6.8 % (2.0-11.0); Neutrophils Absolute Auto 6.5 K/mm3 (1.7-7.2); Neutrophils Percent Auto 60.3 % (50.0-70.0); Platelet Count Result 263 K/mm3 (150-420); Red Blood Count 5.13 M/mm3 (4.70-6.10); Red Cell Distribution Width 12.9 % (11.6-14.4); White Blood Count 10.8 K/mm3 (4.8-10.8)
[2023-04-22 12:04] LABS: Glucose Point of Care 98 mg/dl (65-105)
[2023-04-22 12:12] LABS: Partial Thromboplastin Time 27.3 SEC (23.90-30.70); Prothrombin Time 10.9 Seconds (9.50-12.10)
[2023-04-22 12:16] LABS: Alanine Aminotransferase 30 U/L (16-63); Albumin Level 3.4 g/dL (3.4-5.0); Alkaline Phosphatase 66 U/L (46-116); Anion Gap 10 mmol/L (8-16); Aspartate Amino Transferase 16 U/L (15-37); Bilirubin,Total 0.6 mg/dL (0.00-1.00); Blood Urea Nitrogen 15 mg/dL (7-18); Calcium 8.6 mg/dL (8.5-10.1); Carbon Dioxide 27 mmol/L (21-32); Chloride 104 mmol/L (98-108); Estimated CRCL calculation 69 ml/min; Estimated Glomerular Filt Rate > 60; Glucose 115 mg/dL (70-99); Lipase 24 U/L (16-77); Osmolality Calculated 293 mOsm/kg (285-295); Potassium 4.4 mmol/L (3.5-5.1); Sodium 141 mmol/L (136-145); Total Protein 6.8 g/dL (6.4-8.2)
--- NOTE | 2023-04-22 14:57 | PC.NURSE ---
repeat troponin lab drawn, awaiting results.
[2023-04-22 15:24] LABS: Troponin I 8.5 ng/L (0.00-60.4)
--- NOTE | 2023-04-22 15:39 | PC.NURSE ---
call placed to jose, will come for ride home.
== END 2023-04-22 15:39 | disposition home or self-care (01) ==
PROVIDERS: Emergency Provider Emergency Medicine; PCP Family Medicine
DX: K21.9 Gastro-esophageal reflux disease without esophagitis (principal); I25.10 Atherosclerotic heart disease of native coronary artery without angina pectoris; I10 Essential (primary) hypertension; E11.9 Type 2 diabetes mellitus without complications; F17.210 Nicotine dependence, cigarettes, uncomplicated; Z79.899 Other long term (current) drug therapy; Z79.82 Long term (current) use of aspirin; Z79.84 Long term (current) use of oral hypoglycemic drugs
CPT/HCPCS: 36415; 71045; 80053; 82948; 83690; 84484; 85025; 85610; 85730; 93005; 96374; 99284; A9270

== ENCOUNTER 2023-06-26 08:13 | Outpatient (CLI) | payer MEDICARE, SELFPAY ==
[2023-06-26 08:50] LABS: Creatinine Urine 171.61 mg/dL (40-278); MALB Creatinine Ratio 7.6 mg/g (0-30); Microalbumin Urine Random 13.2 mg/L
[2023-06-26 09:01] LABS: Hemoglobin A1C 5.6 % (<5.7)
[2023-06-26 09:42] LABS: Alanine Aminotransferase 41 U/L (16-63); Albumin Level 3.6 g/dL (3.4-5.0); Alkaline Phosphatase 76 U/L (46-116); Anion Gap 8 mmol/L (4-12); Aspartate Amino Transferase 20 U/L (15-37); Bilirubin,Total 0.4 mg/dL (0.00-1.00); Blood Urea Nitrogen 18 mg/dL (7-18); Carbon Dioxide 28 mmol/L (21-32); Chloride 107 mmol/L (98-108); Cholesterol 121 mg/dL (0-200); Estimated Glomerular Filt Rate > 60; Glucose 112 mg/dL (70-99); HDL Direct 37 mg/dL (40-60); LDL Cholesterol Calculated 51 mg/dL (<130); Osmolality Calculated 298 mOsm/kg (285-295); Potassium 4.6 mmol/L (3.5-5.1); Sodium 143 mmol/L (136-145); Total Protein 6.4 g/dL (6.4-8.2); Triglycerides 165 mg/dL (0-150)
== END 2023-06-26 08:14 | disposition home or self-care (01) ==
LOC: CHSLAB 08:15
PROVIDERS: PCP Family Medicine; Visit Provider Physician Assistant
DX: E11.9 Type 2 diabetes mellitus without complications (principal); E78.2 Mixed hyperlipidemia
CPT/HCPCS: 36415; 80053; 80061; 82043; 83036

== ENCOUNTER 2023-12-02 15:56 | Emergency (ER) | payer MEDICARE, SELFPAY ==
[2023-12-02] VITALS (10 sets, daily range): BP systolic 105–143; BP diastolic 66–82; PULSE 71–98; RESP 18–20; TEMP 36.6–36.8; O2SAT 92–96
--- NOTE | ~2023-12-02 | XR_ITS ---
XR chest 2V Ordering provider: Bryan Do MD History: 73 years Male with . Chest pain x3 days . Comparison: April 22, 2023 FINDINGS: MEDIASTINUM: The cardiac silhouette is not enlarged. Postoperative changes in the mediastinum. LUNGS: No infiltrates, effusions or pneumothorax. OTHER: No free air under the diaphragm. Degenerative changes of the spine IMPRESSION: No acute cardiopulmonary pathology. Reviewed, dictated and finalized at location A.
--- NOTE | 2023-12-02 15:57 | ECG_ITS ---
Test Date: 2023-12-02 16:04:32 Measurements Intervals [place] Rate: 88 P: 0 NE: 0 QRS: 11 QRSD: 101 T: 88 QT: 357 QTc: 433 Interpretive Statements SINUS OR ECTOPIC ATRIAL RHYTHM INCOMPLETE RIGHT BUNDLE BRANCH BLOCK CANNOT R/O SEPTAL INFARCT, AGE INDETERMINATE BORDERLINE ST-T WAVE ABNORMALITY- HIGH LATERAL LEADS BASELINE ARTIFACT- I ABNORMAL ECG No previous ECG available for comparison Electronically Signed On 12-02-2023 20:22:12 CDT by Raul Richmond D.O.
--- NOTE | 2023-12-02 15:59 | ED.CHESTPAIN ---
HPI - Chest Pain General Chief Complaint: Chest Pain Stated Complaint: chest pain Source: patient Mode of arrival: ambulatory Limitations: no limitations History of Present Illness HPI narrative: Patient is a 73-year-old male with diabetes, hypertension, hyperlipidemia and coronary artery disease with a triple bypass 2 years ago. He is here with chest pain. He said he gets acid reflux symptoms that are very similar in the past and that tends to be the problem. No other symptoms such as nausea vomiting or diarrhea. The pain does radiate to the left arm with some numbness. There is no neck or face pain. There is no back pain. The pain is central substernal and pressure-like which has been constant for 3 days. Patient has tobacco abuse. MD complaint: chest pain and chest heaviness Pertinent past history: coronary artery disease, prior SD and CABG Onset (ago): day(s) (3) Timing of current episode: constant and still present Prior episodes: Yes Onset: during rest, during exertion, after eating and awoke with symptoms Pain location: substernal Pain radiation: left arm Severity: moderate Pain scale (0-10): 6 Quality: heaviness Relieving factors: nothing Exacerbating factors: nothing Treatment prior to arrival: none Risk Factors Coronary artery disease risk factors: diabetes, smoking history, hyperlipidemia and hypertension Thoracic aortic dissection risk factors: none Related Data Home Medications Medication Instructions Recorded Confirmed finasteride 5 mg tablet 5 mg PO DAILY 02/13/19 12/02/23 metformin 500 mg tablet 500 mg PO BID 02/13/19 12/02/23 metoprolol tartrate 25 mg tablet 12.5 mg PO BID 02/13/19 12/02/23 lovastatin 20 mg tablet 20 mg PO DAILY 07/18/19 12/02/23 aspirin 81 mg tablet,delayed 81 mg PO DAILY 11/14/20 12/02/23 release (Adult Low Dose Aspirin) meclizine 25 mg tablet 25 mg PO TID PRN Dizziness Or 11/14/20 12/02/23 Vertigo tamsulosin 0.4 mg capsule 0.4 mg PO DAILY 12/02/23 12/02/23 Allergies Allergy/AdvReac Type Severity Reaction Status Date / Time Penicillins Allergy Unknown Unknown Verified 02/24/23 20:42 carbamazepine [From Tegretol] Allergy Unknown Verified 02/24/23 20:42 clindamycin Allergy Unknown Verified 02/24/23 20:42 ketorolac [From Toradol] AdvReac Hallucinati Verified 02/24/23 20:42 ng tramadol AdvReac Hallucinati Verified 02/24/23 20:42 ng Review of Systems Review of Systems: All systems reviewed & are unremarkable except as noted in HPI and below Constitutional: Constitutional: Reports no additional constitutional complaints Eyes: Eyes: Reports no additional eye complaints ENT: Reports system reviewed and no additional complaints, except as documented Cardiovascular: Cardiovascular: Reports no additional cardiovascular complaints Respiratory: Respiratory: Reports no additional respiratory complaints Gastrointestinal: Gastrointestinal: Reports no additional gastrointestinal complaints Genitourinary: Genitourinary: Reports no additional male genitourinary complaints Musculoskeletal: Musculoskeletal: Reports no additional musculoskeletal complaints Integumentary/Breasts: Skin/Breast: Reports system reviewed and no additional complaints, except as docu Neurologic: Reports system reviewed and no additional complaints, except as documented Psychiatric: Psychiatric: Reports no additional psychiatric complaints Endocrine: Endocrine: Reports no additional endocrine complaints Hematologic/Lymphatic: Hematologic/Lymphatic: Reports no additional hematologic/lymphatic complaints Allergic/Immunologic: Allergic/Immunologic: Reports no additional allergic/immunologic complaints PMFSH Past Medical History Medical History Bloating BPH (benign prostatic hyperplasia) CAD (coronary artery disease) Colon cancer screening Diabetes mellitus Gastroesophageal reflux disease History of heart attack Hypertension Non-ca
[2023-12-02 16:16] LABS: Basophils Absolute Auto 0.06 K/mm3 (0.00-0.10); Basophils Percent Auto 0.5 % (0.0-1.0); Eosinophils Absolute Auto 0.34 K/mm3 (0.02-0.50); Eosinophils Percent Auto 2.9 % (1.0-6.0); Hematocrit 49.1 % (37.0-46.0); Hemoglobin 16.5 g/dL (12.4-15.3); Immature Granulocyte Absolute 0.12 K/mm3 (0.00-0.00); Lymphocytes Absolute Auto 3.22 K/mm3 (1.10-4.50); Lymphocytes Percent Auto 27.4 % (18.0-42.0); Mean Corpuscular HGB Conc 33.6 g/dL (32-36); Mean Corpuscular Volume 92.3 fL (78.0-102.0); Mean Platelet Volume 10.5 fl (8.7-11.0); Monocytes Absolute Auto 0.94 K/mm3 (0.10-0.90); Neutrophils Absolute Auto 7.07 K/mm3 (1.70-7.20); Neutrophils Percent Auto 60.2 % (50.0-70.0); Platelet Count Result 248 K/mm3 (150-420); Red Blood Count 5.32 M/mm3 (4.70-6.10); Red Cell Distribution Width 12.7 % (11.6-14.4); White Blood Count 11.8 K/mm3 (4.8-10.8)
[2023-12-02] MEDS: ASPIRIN 81 MG CHEWABLE TABLET 324 MG PO (16:24)
[2023-12-02 16:25] LABS: D Dimer 0.44 mg/L (0.19-0.50); INR 0.9; Partial Thromboplastin Time 26.6 Sec (23.9-30.70); Prothrombin Time 10.4 Seconds (9.50-12.1)
[2023-12-02] MEDS: NITROGLYCERIN SL 0.4 MG TABLET SUBLINGUAL (16:26)
[2023-12-02 16:33] LABS: Alanine Aminotransferase 30 U/L (16-63); Albumin Level 3.5 g/dL (3.4-5.0); Alkaline Phosphatase 82 U/L (46-116); Anion Gap 6 mmol/L (4-12); Aspartate Amino Transferase 10 U/L (15-37); Bilirubin,Total 0.5 mg/dL (0.00-1.00); Blood Urea Nitrogen 25 mg/dL (7-18); Calcium 9.9 mg/dL (8.5-10.1); Carbon Dioxide 30 mmol/L (21-32); Chloride 103 mmol/L (98-108); Estimated CRCL calculation 67 ml/min; Estimated Glomerular Filt Rate > 60; Glucose 100 mg/dL (70-99); Lipase 37 U/L (16-77); NT Pro B Type Natriuretic Pept 38 pg/mL (0-125); Osmolality Calculated 292 mOsm/kg (285-295); Potassium 4.3 mmol/L (3.5-5.1); Sodium 139 mmol/L (136-145); Total Protein 7.1 g/dL (6.4-8.2); Troponin I 7.8 ng/L (0.00-60.4)
[2023-12-02] MEDS: MAG HYDROX/ALUMINUM HYD/SIMETH 30 ML, PHENobarb/HYOSCY/ATROPINE/SCOP 32.4 MG, LIDOCAINE... PO (16:42)
--- NOTE | 2023-12-02 16:48 | PC.NURSE ---
Pt resting, VSS, ERp in to discuss labs and need for transfer to his item repair manager due to his high risk hx and previous MD's. Pt agreeable to plan for transfer. Pt states his item repair manager is Dr Loera.
--- NOTE | 2023-12-02 17:12 | PC.NURSE ---
Pt reports feeling some better, up ambulated to BR per self steadily. Awaiting call back from [facility].
--- NOTE | 2023-12-02 18:00 | ECG_ITS ---
Test Date: 2023-12-02 18:06:58 Measurements Intervals [place] Rate: 75 P: -75 [place]: 120 QRS: -11 QRSD: 108 T: 85 QT: 380 QTc: 425 Interpretive Statements SINUS OR ECTOPIC ATRIAL RHYTHM INCOMPLETE RIGHT BUNDLE BRANCH BLOCK CANNOT R/O SEPTAL INFARCT, AGE INDETERMINATE BORDERLINE ST-T WAVE ABNORMALITY- HIGH LATERAL LEADS ABNORMAL ECG Compared to ECG 12/02/2023 16:04:32 NO SIGNIFICANT CHANGE Electronically Signed On 12-02-2023 20:23:19 CDT by Raul Richmond D.O.
--- NOTE | 2023-12-02 18:27 | PC.NURSE ---
Pt states he is hungry and ERP okayed giving pt dinner. Pt given sandwich and fruit and water. Awaiting call back from [facility] for bed placement. Monitor continues to show NSR and VSS.
[2023-12-02 18:38] LABS: Troponin I 8.6 ng/L (0.00-60.4)
--- NOTE | 2023-12-02 18:55 | PC.NURSE ---
Lights dimmed, pt resting, VSS, awaiting call for bed assignment.
--- NOTE | 2023-12-02 19:03 | PC.NURSE ---
Report given to Cassy Acosta
== END 2023-12-02 20:22 | disposition short-term general hospital (02) ==
LOC: CHSED 16:44
PROVIDERS: Emergency Provider Emergency Medicine; PCP Family Medicine
DX: I20.9 Angina pectoris, unspecified (principal); E11.59 Type 2 diabetes mellitus with other circulatory complications; I10 Essential (primary) hypertension; E78.5 Hyperlipidemia, unspecified; I25.810 Atherosclerosis of coronary artery bypass graft(s) without angina pectoris; I25.2 Old myocardial infarction; F17.210 Nicotine dependence, cigarettes, uncomplicated; Z79.899 Other long term (current) drug therapy; Z79.84 Long term (current) use of oral hypoglycemic drugs; Z79.82 Long term (current) use of aspirin
CPT/HCPCS: 36415; 71046; 80053; 83690; 83880; 84484; 85025; 85380; 85610; 85730; 93005; 99285; A9270

== ENCOUNTER 2024-01-14 13:19 | Outpatient (CLI) | payer MEDICARE, SELFPAY ==
--- NOTE | ~2024-01-14 | CT_ITS ---
EXAMINATION:CT lung screening DATE: 01/14/2024 13:56 INDICATION: Personal history of nicotine dependence. Current smoker with 82.5 pack year history. TECHNIQUE: Computed tomography (CT) of the chest was performed without intravenous contrast. Automate d exposure control and iterative reconstruction technique were employed. The dose-length product (DLP ) was 137.03 mGy-cm. COMPARISON: Chest CT 12/21/2022 FINDINGS: There is a 2 mm nodule at left major fissure. There is no pneumonia or pleural effusion. Th e heart size is normal. There are coronary artery calcifications. There are changes of coronary arter y bypass grafting. No pericardial effusion. There is diffuse hepatic steatosis. There are changes of cholecystectomy. There is bilateral gynecomastia. There are bridging endplate osteophytes at multiple levels in the spine, consistent with diffuse idiopathic skeletal hyperostosis (DISH). There is mild chronic anterior wedging of multiple vertebral bodies. IMPRESSION: 1. Lung-RADS category 2: Benign appearance or behavior. Continue annual screening with noncontrast lo w-dose chest CT in 12 months. Reviewed, dictated and finalized at location A. CT MARKETING MANAGER IMPRESSION: 1. Lung-RADS category 2: Benign appearance or behavior. Continue annual screeni ng with noncontrast low-dose chest CT in 12 months.
== END 2024-01-14 13:20 | disposition home or self-care (01) ==
LOC: CHSIMG 13:21
PROVIDERS: PCP Family Medicine
DX: Z12.2 Encounter for screening for malignant neoplasm of respiratory organs (principal); Z87.891 Personal history of nicotine dependence
CPT/HCPCS: 71271

== ENCOUNTER 2024-11-08 10:35 | Emergency (ER) | payer MEDICARE, SELFPAY ==
[2024-11-08 10:35] VITALS: BP 140/74; PULSE 101; RESP 18; TEMP 36.4; O2SAT 94
--- OUTSIDE RECORDS SUMMARY | 2024-11-08 10:39 | XMS_ITS | Clinical Summary ---
Author Organization [facility] Address [address] [address] Phone Care Team Providers Care Take Down Inspector Name Role Phone Maicol Gómez MD Primary Care Provider [phone] Social History Tobacco Use Types Packs/Day Years Used Date Smoking Tobacco: Never Assessed Sex and Gender Information Value Date Recorded Sex Assigned at Not on file Legal Sex Male 10:55 PM CDT Gender Identity Not on file Sexual Orientation Not on file Plan of Treatment Health Maintenance Due Date Last Done Comments Hepatitis C Virus (HCV) Screening 1950 TdaP Immunization 1950 Cologuard 10/28/1995 Colonoscopy 10/28/1995 Colorectal Cancer Screening 10/28/1995 Immunochemical Fecal Occult Blood 10/28/1995 Zoster Immunization (1 of 2) 2000 Pneumococcal Immunization (5 0+ years) (2 of 2 - PCV) 06/11/2018 06/11/2017 SARS-COV-2 Immunization (3 - season) 2023 06/18/2020, 05/21/2020 Influenza Immunization (#1) 2024 Respiratory Syncytial Virus (RSV) Immunization (Adult) (1 - 1-dose 75+ series) 2025 Pneumococcal Immunization Combined Discontinued 06/11/2017 Hepatitis B Immunization Aged Out No longer eligible based on patient's age to complete this topic Human Papillomavirus (HPV) Immunization Aged Out No longer eligible based on patient's age to complete this topic Meningococcal Immunization (ACWY) Aged Out No longer eligible based on patient's age to complete this topic Rotavirus Immunization Aged Out No lo nger eligible based on patient's age to complete this topic Insurance MEDICARE Care Teams Take Down Inspector Relationship Specialty Start Date End Date Maicol Gómez MD [address] [place] [address] PCP - General Family Medicine 11/15/17
--- NOTE | 2024-11-08 10:56 | ED.DENTAL ---
HPI - Dental/Oral General Chief complaint: Dental/Oral Stated complaint: dental pain Source: patient Mode of arrival: ambulatory Limitations: no limitations History of Present Illness HPI Narrative: 74-year-old male with a history of smoking, diabetes, hypertension, CAD status post stent/CABG presents to the ED with a 3 day history of -- left upper jaw/dental pain with swelling. Patient has extensive dental caries. -- Swelling of the left face. No fever or chills. MD Complaint: tooth pain Location: Tooth # (9,12) Onset (ago): day(s) ( Three days) Duration: constant Relieving factors: nothing Exacerbating factors: cold and heat Context: history of dental caries Treatment prior to arrival: none Related Data Home Medications ?Medication ?Instructions ?Recorded ?Confirmed ?Last Taken ?Type finasteride 5 mg tablet 5 mg PO DAILY 02/13/19 12/02/23 07/05/20 History metformin 500 mg tablet 500 mg PO BID 02/13/19 12/02/23 07/05/20 History metoprolol tartrate 25 mg tablet 12.5 mg PO BID 02/13/19 12/02/23 07/05/20 History lovastatin 20 mg tablet 20 mg PO DAILY 07/18/19 12/02/23 07/05/20 History aspirin 81 mg tablet,delayed 81 mg PO DAILY 11/14/20 12/02/23 Unknown History release (Adult Low Dose Aspirin) meclizine 25 mg tablet 25 mg PO TID PRN Dizziness Or 11/14/20 12/02/23 Unknown History Vertigo tamsulosin 0.4 mg capsule 0.4 mg PO DAILY 12/02/23 12/02/23 Unknown History Allergies Allergy/AdvReac Type Severity Reaction Status Date / Time Penicillins Allergy Unknown Unknown Verified 11/08/24 11:08 carbamazepine (From Tegretol) Allergy Unknown Verified 11/08/24 11:08 clindamycin Allergy Unknown Verified 11/08/24 11:08 ketorolac (From Toradol) AdvReac Hallucinati Verified 11/08/24 11:08 ng tramadol AdvReac Hallucinati Verified 11/08/24 11:08 ng Review of Systems Review of Systems: All systems reviewed & are unremarkable except as noted in HPI and below PMFSH Past Medical History Medical History History of heart attack Colon cancer screening Tobacco abuse Bloating Non-cardiac chest pain Gastroesophageal reflux disease Type 2 diabetes mellitus Hypertension BPH (benign prostatic hyperplasia) Diabetes mellitus CAD (coronary artery disease) Surgical History Surgical History History of coronary artery stent placement x2 Social History Social History Smoking packs per day: 1.5 Smoking cigarettes per day: 30.0 Smoking status: Current every day smoker Tobacco type: cigarettes Alcohol intake: never Substance use: current Substance use type: marijuana Lack of Transportation: No Lack of Food: Never True Current Housing: I Have Housing Concerned About Future Housing: No Difficulty Paying Gas/Electric Bills: No Difficulty Paying for Meds: No Currently Unemployed: No Education: High School Diploma/GED Difficulty w/ Childcare or Family Care: No Living arrangements: alone Gender identity (if verbalized by the patient): Male Spiritual care concerns: No Exam Narrative: vitals are stable Const: General: no acute distress Orientation/consciousness: patient oriented x3 Limitations: no limitations HENMT: Head: normal to inspection Ears: external ears normal Face/Nose/Sinus: Normal external nose present Face and sinus: normal facial exam Mouth: Yes Normal oral and palatal mucosa present Teeth and gingiva: abnormal tooth and associated gingiva ( multiple missing teeth. ) Other: Left upper incisor and 1st premolar are carious/ discolored and partially fractured Eyes: Conjunctivae: conjunctivae normal Pupils: Equal, round and reactive pupils present EOM: EOMs intact bilaterally Direct Ophthalmoscopy: no photophobia Neck: Neck: normal visual inspection, no lymphadenopathy and no meningeal signs Chest: Chest palpation & inspection: normal inspection of the chest Resp: Effort & Inspection: normal respiratory effort Auscultation: rhonchi and diminished lung sounds Cardio: Rate: regular rate Rhythm: regular rhythm GI: Auscultation: normal bowel sounds Other: no tenderness/rigidity /rebound : General: Yes no CVA tenderness Back/Spine/Pelvis: Back: no CVA tenderness Skin: General skin exam: normal color Rashes: no rashes Neuro: General: patient oriented x3, moves all extremities, no meningeal signs, no focal motor deficits and CN's II-XI intact bilaterally Cranial nerves: Yes Nystagmus not present Speech: normal speech Gait exam (Neuro): Normal gait present Extrem: General: normal to inspection and no clubbing, cyanosis or edema Psych: Mental Status: mental status grossly normal Affect: normal affect Attitude: cooperative Course Course Emergency Course: dental caries-- patient is allergic to penicillin and clindamycin. will treat with doxycycline dental pain- patient is allergic to ketorolac and tramadol Vital Signs Vital signs: Vital Signs Temperature 36.4 C L 11/08/24 10:35 Pulse Rate 101 H 11/08/24 10:35 Respiratory Rate 18 11/08/24 10:35 Blood Pressure 140/74 11/08/24 10:35 Pulse Oximetry 94 11/08/24 10:35 Oxygen Delivery Room Air 11/08/24 10:35 Temperature 36.4 C L 11/08/24 10:35 Pulse Rate 101 H 11/08/24 10:35 Respiratory Rate 18 11/08/24 10:35 Blood Pressure 140/74 11/08/24 10:35 Pulse Oximetry 94 11/08/24 10:35 Oxygen Delivery Room Air 11/08/24 10:35 MDM - Dental/Oral MDM Narrative Medical decision making narrative: dental caries dental pain Differential Diagnosis Differential diagnosis: Likely dental abscess Medical Records Attestation: I reviewed the patient's medical records. Discharge Plan Discharge Clinical Impression: Dental caries, Pain, dental Patient Disposition: Home Condition: Stable Instructions: Antibiotic Form, Dental Abscess (ED), Toothache (ED) Patient Language: Burkinan Prescriptions: New hydrocodone-acetaminophen 5-325 mg tablet 1 tablet PO HS PRN (Reason: pain) Qty: 3 0RF doxycycline hyclate 100 mg tablet 100 mg PO BID Qty: 14 0RF No Action metformin 500 mg tablet 500 mg PO BID finasteride 5 mg tablet 5 mg PO DAILY metoprolol tartrate 25 mg tablet 12.5 mg PO BID lovastatin 20 mg tablet 20 mg PO DAILY aspirin [Adult Low Dose Aspirin] 81 mg Tablet,Delayed Release (Dr/Ec) 81 mg PO DAILY meclizine 25 mg tablet 25 mg PO TID PRN (Reason: Dizziness Or Vertigo) tamsulosin 0.4 mg capsule 0.4 mg PO DAILY Follow-up/Referrals: Maicol Gómez M.D. [Primary Care Provider, Family Practice] Stand Alone Forms: Work/School Release IP Time of Disposition: 11:14
== END 2024-11-08 11:15 | disposition home or self-care (01) ==
LOC: CHSED 11:13
PROVIDERS: Emergency Provider Internal Medicine Critical Care Medicine; PCP Family Medicine
DX: K02.9 Dental caries, unspecified (principal); E11.9 Type 2 diabetes mellitus without complications; I10 Essential (primary) hypertension; I25.810 Atherosclerosis of coronary artery bypass graft(s) without angina pectoris; I25.2 Old myocardial infarction; F17.210 Nicotine dependence, cigarettes, uncomplicated; Z95.1 Presence of aortocoronary bypass graft
CPT/HCPCS: 99283

== ENCOUNTER 2024-12-13 13:40 | Emergency (ER) | payer MEDICARE, MEDICAID, SELFPAY ==
[2024-12-13] VITALS (11 sets, daily range): BP systolic 111–125; BP diastolic 60–71; PULSE 58–72; RESP 16–20; TEMP 36.5; O2SAT 94–96
--- NOTE | ~2024-12-13 | XR_ITS ---
EXAMINATION: XR chest 1V portable COMPARISON: No comparisons available. HISTORY: weakness FINDINGS: The lungs are clear, no effusion. No pneumothorax. Heart is normal size. Mediastinal and hilar contours are within normal limits. Post sternotomy Miscellaneous: None Impression: No acute cardiopulmonary abnormality. Reviewed, dictated and finalized at location P. Impression: No acute cardiopulmonary abnormality.
--- NOTE | ~2024-12-13 | CT_ITS ---
EXAMINATION: CT abdomen pelvis wo con, 12/13/2024 14:25 CDT HISTORY: abdominal pain, urinary retention, distended COMPARISON: No comparisons available. TECHNIQUE: CT scan of the abdomen and pelvis was performed without IV contrast. One or more of the following dose reduction techniques were used: automated exposure control, adjustment of the mA and/or kV according to patient size, use of iterative reconstruction technique. Unless otherwise stated, incidental findings do not require dedicated follow up imaging FINDINGS: CT abdomen: LUNG BASES: The lung bases are clear. The visualized portions of the heart and pericardium are unremarkable. LIVER: Mild hepatic steatosis. SPLEEN: Unremarkable, no splenomegaly. KIDNEYS: Right Kidney: Right kidney subcentimeter probable renal cysts. Left Kidney: Left kidney midpole simple appearing renal cyst 3 x 3 cm. ADRENAL GLANDS: Unremarkable. PANCREAS: Unremarkable. GALLBLADDER/BILIARY: Post cholecystectomy. STOMACH AND ESOPHAGUS: Stomach decompressed. BOWEL/MESENTERY: Moderate fecal content. Moderate diverticulosis. No colitis or diverticulitis. Appendix normal. Mesentery normal. There are no thickened or dilated loops of small bowel. ADENOPATHY/RETROPERITONEUM: No lymphadenopathy. AORTA/VASCULATURE: Normal caliber aorta. FREE FLUID OR FREE AIR: Trace free fluid.. CT pelvis: SOLID ORGANS/REPRODUCTIVE: The prostate is enlarged, correlate with PSA. BLADDER: The bladder is decompressed. 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 No sclerotic or lytic lesions. OVERLYING SOFT TISSUES: Small bilateral fat-containing inguinal hernia. Rahman catheter within the bladder. IMPRESSION: No acute intra-abdominal process. Incidental findings above Reviewed, dictated and finalized at location P.
--- OUTSIDE RECORDS SUMMARY | 2024-12-13 13:44 | XMS_ITS | Encounter Summary ---
Author Organization [facility] Address [address] [place] [address] Care Team Providers Care Email Marketing Manager Name Role Phone Maicol Gómez MD Primary Care Provider [phone] Cayetano Loera MD Unavailable [phone] Lonnie Christian MD Unavailable Cayetano Ha MD Unavailable Un available Erik Rosen MD Unavailable [phone] Chayo Villa [facility]- Unavailable [phone] Encounter Details Date Type Department Care Team (Late st Contact Info) Description 03/20/2022 Hospital Follow-up Call [facility] [address] [place] [address] Vickie Olson, RN Social History Tobacco Use Types Packs/Day Years Used Date Smoking Tobacco: Every Day Cigarettes Smokeless Tobacco: Never Comments:quit 01/18/18 (1.5 ppd). patient restarted (1 ppd) Alcohol Use Standard Drinks/Week Comments No 0 (1 standard drink = 0.6 oz pur e alcohol) Humiliation, Afraid, Rape, and Kick questionnair e Answer Date Recorded Within the last year, have y ou been afraid of your partner or ex-partner? No 03/09/2022 Within the last year, have y ou been humiliated or emotionally abused in other ways by your partner or ex-partner? No Within the last year, have y ou been kicked, hit, slapped, or otherwise physically hurt by your partner or ex-partner? No 03/09/2022 Within the last year, have y ou been raped or forced to have any kind of sexual activity by your partner or ex-partner? No 03/09/2022 Social Connection and Isolation Panel [NHANES] A nswer Date Recorded In a typical week, how many times do you talk on the phone with family, friends, or neighbors? Never 03/09/2022 How often do you get together with friends or re latives? Never 03/09/2022 How often do you attend yarsani or anglican serv ices? Never 03/09/2022 Do you belong to any clubs o r organizations such as yarsani groups, unions, fraternal or athletic groups, or school groups? No 03/09/2022 How often do you attend meet ings of the clubs or organizations you belong to? Never 03/09/2022 Are you , , di vorced, , never , or living with a partner? Never 03/09/2022 AUDIT-C Answer Date Recorded Q1: How often do you have a drink containing alcohol? Never 03/09/2022 Q2: How many drinks containi ng alcohol do you have on a typical day when you are drinking? Patient does not drink Q3: How often do you have si x or more drinks on one occasion? Never 03/09/2022 Overall Financial Resource Strain (CARDIA) Answe r Date Recorded How hard is it for you to pa y for the very basics like food, housing, medical care, and heating? Hard 03/09/2022 PHQ-2 Answer Date Recorded Patient Health Questionnaire-2 Score 0 03/09/2022 [facility] - Occupational Stress Questionnaire Answer Date Recorded Do you feel stress - tense, restless, nervous, or anxious, or unable to sleep at night because your mind is troubled all the time - these days? Not at all 03/09/2022 Exercise Vital Sign Answer Date Recorde d On average, how many days pe r week do you engage in moderate to strenuous exercise (like a brisk walk)? 0 days 03/09/2022 On average, how many minutes do you engage in exercise at this level? 0 min 03/09/2022 Hunger Vital Sign Answer Date Recorded Within the past 12 months, y ou worried that your food would run out before you got the money to buy more. Often true 03/09/19 23 Within the past 12 months, t he food you bought just didn't last and you didn't have money to get more. Often true 03/09/2022 PRAPARE - Transportation Answer Date Re corded In the past 12 months, has l ack of transportation kept you from medical appointments or from getting medications? No 07/2022 In the past 12 months, has l ack of transportation kept you from meetings, work, or from getting things needed for daily living? No 03/09/2022 Housing Stability Vital Sign Answer Fredi e Recorded In the last 12 months, was t here a time when you were not able to pay the mortgage or rent on time? No 03/09/2022 In the last 12 months, how many places have you lived? 1 03/09/2022 In the last 12 months, was t here a time when you did not have a steady place to sleep or slept in a longterm (including now)? No 03/09/2022 Sex and Gender Information Value Date Recorded Sex Assigned at Male 09/13/2018 12:14 PM CDT Legal Sex Male 5:31 PM CDT Gender Identity Male 09/13/2018 12:14 PM CDT Sexual Orientation Not on file Occupation Industry Job Start Date Job End Date Not on file Not on file Not on file Not on file COVID-19 Exposure Response Date Recorded In the last 10 days, have yo u been in contact with someone who was confirmed or suspected to have Coronavirus/COVID-19? No / Unsure 03/09/2022 2:14 AM BOAT BUILDER AND REPAIRER documented as of this encounter Functional Status * RETIRED Are you deaf or do you have serious difficulty hearing Answer Date of Assessment Author Status No 03/09/2022 2:24 AM BOAT BUILDER AND REPAIRER Activ e * RETIRED Are you blind or do you have serious difficulty seeing, even when wearing glasses? Answer Date of Assessment Author Status No 03/09/2022 2:24 AM BOAT BUILDER AND REPAIRER Activ e * Do you have serious difficulty walking or climbing stairs? Answer Date of Assessment Author Status No 03/09/2022 2:24 AM BOAT BUILDER AND REPAIRER Gagan Kohli RN Active * Do you have difficulty dressing or bathing? Answer Date of Assessment Author Status No 03/09/2022 2:24 AM Gagan Lu RN Active * Because of a physical, mental, or emotional condition, do you have difficulty doing errands alone such as visiting a doctor's office or shopping? Answer Date of Assessment Author Status No 03/09/2022 2:24 AM Gagan Lu RN Active documented as of this encounter Mental Status * Because of a physical, mental, or emotional condition, do you have serious difficulty concentrating, remembering, or making decisions? Answer Entry Date Author Status No 03/09/2022 2:24 AM Gagan Lu RN Active documented in this encounter Plan of Treatment Not on file documented as of this encounter Goals Goal Patient Goal Type Associated Problems Recent Progress Patient-Stated? Author Safety Patient/family will have appropriate support at home upon discharge Lifestyle Trina Blake RN documented as of this encounter Visit Diagnoses Not on filedocumented in this encounter Care Teams Email Marketing Manager Relationship Specialty Start Date End Date Maicol Gómez MD [address] [facility] [place] [address] PCP - General FAMILY PRACTICE 01/04/18 Cayetano Loera MD [address] [place], [place] [id number] [place] [employer] CARDIOVASCULAR DISEASE 02/01/18 06/20/23 Lonnie Christian MD [address] [place], [place] [id number] Consulting Physician GASTROENTEROLOGY 07/19/18 Cayetano Ha MD [address] [place] [id number] SURGERY 10/15/18 Erik Rosen MD [address] [place], [place] [id number] INTERVENTIONAL CARDIOLOGY 06/21/23 Chayo Villa ANP- [address] [place] [address] Nurse Practitioner NURSE PRACTITIONER ADULT HEALTH 06/21/23 documented as of this encounter
--- OUTSIDE RECORDS SUMMARY | 2024-12-13 13:44 | XMS_ITS | Clinical Summary ---
Author Organization [facility] Address [address] [address] Phone Care Team Providers Care Nuclear Station Operator Name Role Phone Maicol Gómez MD Primary Care Provider [phone] Social History Tobacco Use Types Packs/Day Years [...] (2 of 2 - PCV) 06/11/2018 06/11/2017 Influenza Immunization (#1) 2024 SARS-COV-2 Immunization (3 - 2024- season) 2024 06/18/2020, 05/21/2020 Respiratory Syncytial Virus (RSV) Immunization (Adult) (1 [...] complete this topic Insurance MEDICARE Care Teams Nuclear Station Operator Relationship Specialty Start Date End Date Maicol Gómez MD [address] [place] [address] PCP - General Family Medicine 11/15/17
--- OUTSIDE RECORDS SUMMARY | 2024-12-13 13:44 | XMS_ITS | Clinical Summary ---
Author Organization [facility] Address [address] [place] [address] Care Team Providers Care Lending Advisor Name Role Phone Maicol Gómez MD Primary Care Provider [phone] Lonnie Christian MD Unavailable Cayetano Ha MD Unavailable Un available Erik Rosen MD Unavailable [phone] Chayo Villa [facility]- Unavailable [phone] Allergies Active Allergy Reactions Criticality Noted Date Comments Clindamycin Anaphylaxis High 08/13/2015 Penicillins Syncope,Unknown 08/13/2015 Carbamazepine Hallucinations High 01/04/2018 Medications finasteride 5 MG tablet Take 1 tablet (5 mg total) by mouth daily. 90 tablet 3 01/07/2018 Active nitroglycerin 0.[address] 1 tablet (0.4 mg total) under the tongue every 5 (five) minutes as needed for Chest Pain. 25 tablet 3 01/06/2018 Active lovastatin 20 MG tablet Take 1 tablet (20 mg total) by mouth daily with supper. Active aspirin EC 81 MG tablet Take 1 tablet (81 mg total) by mouth daily. 90 tablet 09/30/2020 Active metoprolol tartrate (LOPRESSOR) 25 MG tablet Take 0.5 tablets (12.5 mg total) by mouth 2 (two) times daily. 30 tablet 11 03/17/2022 Active clopidogrel (PLAVIX) 75 MG tablet Take 1 tablet (75 mg total) by mouth daily. 30 tablet 11 03/18/2022 Active tamsulosin (FLOMAX) 0.4 MG Cap Take 1 capsule (0.4 mg total) by mouth daily. 30 capsule 03/24/2022 Active metFORMIN (GLUCOPHAGE) 500 MG tablet Take 1 tablet (500 mg total) by mouth daily with breakfast. Active pantoprazole EC (PROTONIX) 40 MG tablet Take 1 tablet (40 mg total) by mouth daily. 30 tablet 12/04/2023 Active Active Problems Problem Noted Date Diagnosed Date Unstable angina ([facility]) 12/03/2023 Chest pain 12/03/2023 S/P CABG x 2 03/24/2022 NSTEMI (non-ST elevated myoc ardial infarction) ([facility]) 03/09/2022 Tobacco abuse 11/26/2020 Chronic abdominal pain 09/13/2018 Bloating 07/24/2018 Mixed hyperlipidemia 01/05/2018 Coronary artery disease invo lving napaimute coronary artery of napaimute heart without angina pectoris 01/05/2018 Gastroesophageal reflux disease without esophagi tis 01/05/2018 Type 2 diabetes mellitus wit hout complication, without long-term current use of insulin ([facility]) 01/05/2018 Benign prostatic hyperplasia with urinary retent ion 01/05/2018 Acute retention of urine 01/05/2018 Gross hematuria 01/05/2018 Non-STEMI (non-ST elevated m yocardial infarction) ([facility]) 01/04/2018 Hypertension GERD (gastroesophageal reflux disease) S/P coronary angioplasty Aneurysm of right common iliac artery Resolved Problems Problem Noted Date Diagnosed Date Resolved Date Essential hypertension 01/05/201808/14 Coronary artery disease 08/03 Hyperlipidemia 08/14/2018 Immunizations Immunization Administration Dates Next Due Fluarix (IIV4) 01/05/2018 Pneumococcal (Pneumovax 23) 06/11/2017 Family History Medical History Relation Comments Ovarian Cancer Mother Cancer Son testicular, panc reas, and metastasis to other areas. Diabetes Neg Hx Heart Disease Neg Hx Hypertension Neg Hx Relation Status Comments Father Mother Son Social History Tobacco Use Types Packs/Day Years Used Date Smoking Tobacco: Every Day Cigarettes Last attempted to quit: 03/08/2022 Tobacco Cessation:Ready to Q uit: Not Asked; Counseling Given: No Comments:quit 01/18/18 (1.5 ppd). patient restarted (1 ppd) 12/02/2023-pt states he smokes 1/2 a pack of cigarettes daily Alcohol Use Standard Drinks/Week Comments No 0 (1 standard drink = 0.6 oz pur e alcohol) [id number] Health Literacy Answer Date Recor ded How often do you need to hav e someone help you when you read instructions, pamphlets, or other written material from your doctor or pharmacy? Rarely 12/03/2023 [facility] Utilities Answer Date Recorded In the past 12 months has e [employer], [employer], or water [employer] threatened to shut off services in your home? No 12/03/2023 Humiliation, Afraid, Rape, and Kick questionnair e Answer Date Recorded Within the last year, have y ou been afraid of your partner or ex-partner? No 12/03/2023 Within the last year, have y ou been humiliated or emotionally abused in other ways by your partner or ex-partner? No Within the last year, have y ou been kicked, hit, slapped, or otherwise physically hurt by your partner or ex-partner? No 12/03/2023 Within the last year, have y ou been raped or forced to have any kind of sexual activity by your partner or ex-partner? No 12/03/2023 Social Connection and Isolation Panel [NHANES] A nswer Date Recorded In a typical week, how many times do you talk on the phone with family, friends, or neighbors? Never 12/03/2023 How often do you get together with friends or re latives? Never 12/03/2023 How often do you attend advent or mu-ism serv ices? Never 12/03/2023 Do you belong to any clubs o r organizations such as advent groups, unions, fraternal or athletic groups, or school groups? Yes 12/03/2023 How often do you attend meet ings of the clubs or organizations you belong to? Never 12/03/2023 Are you , , di vorced, , never , or living with a partner? 12/03/2023 AUDIT-C Answer Date Recorded Q1: How often do you have a drink containing alcohol? Never 12/03/2023 Q2: How many drinks containi ng alcohol do you have on a typical day when you are drinking? Patient does not drink Q3: How often do you have si x or more drinks on one occasion? Never 12/03/2023 Overall Financial Resource Strain (CARDIA) Answe r Date Recorded How hard is it for you to pa y for the very basics like food, housing, medical care, and heating? Not very hard 12/03/2023 PHQ-2 Answer Date Recorded Patient Health Questionnaire-2 Score 0 12/03/2023 [facility] - Occupational Stress Questionnaire Answer Date Recorded Do you feel stress - tense, restless, nervous, or anxious, or unable to sleep at night because your mind is troubled all the time - these days? Only a little 12/03/2023 Exercise Vital Sign Answer Date Recorde d On average, how many days pe r week do you engage in moderate to strenuous exercise (like a brisk walk)? 0 days 12/03/2023 On average, how many minutes do you engage in exercise at this level? 0 min 12/03/2023 Hunger Vital Sign Answer Date Recorded Within the past 12 months, y ou worried that your food would run out before you got the money to buy more. Never true 12/03/19 24 Within the past 12 months, t he food you bought just didn't last and you didn't have money to get more. Never true 12/03/2023 PRAPARE - Transportation Answer Date Re corded In the past 12 months, has l ack of transportation kept you from medical appointments or from getting medications? No 11/05 In the past 12 months, has l ack of transportation kept you from meetings, work, or from getting things needed for daily living? No 12/03/2023 Housing Stability Vital Sign Answer Fredi e [...] place to sleep or slept in a fdc (including now)? No 03/09/2022 Housing Stability Vital Sign Answer Fredi e Recorded In the last 12 months, was t here a time when you were not able to pay the mortgage or rent on time? No 12/03/2023 In the past 12 months, how m any times have you moved where you were living? 0 12/03/2023 At any time in the past 12 m [facility], were you homeless or living in a fdc (including now)? No 12/03/2023 Sex and Gender Information Value Date Recorded Sex Assigned at Male 09/13/2018 12:14 PM CDT Legal Sex Male 5:31 PM CDT Gender Identity Male 09/13/2018 12:14 PM CDT Sexual Orientation Not on file Occupation Industry Job Start Date Job End Date Not on file Not on file Not on file Not on file Last Filed Vital Signs Vital Sign Reading Time Taken Comments Blood Pressure 111/71 12/03/2023 8:41 AM CDT Pulse 81 12/03/2023 8:41 AM CDT Temperature 36.8 C (98.2 F) 12/03/2023 8:41 AM CDT Respiratory Rate 18 12/03/2023 8:41 AM CDT Oxygen Saturation 95% 12/03/2023 8:41 AM CDT Inhaled Oxygen Concentration - - Weight 100.1 kg (220 lb 9.6 oz) 12/03/2023 5:00 AM CDT Height 180.3 cm (5' 11) 12/02/2023 9:00 PM CDT Body Mass Index 30.77 12/02/2023 9:00 PM CDT Plan of Treatment Health Maintenance Due Date Last Done Comments ASCVD Statin 1950 Kidney Health Evaluation 1950 Diabetes: Retinopathy Eye Exam 1968 Hepatitis C 1968 DTaP, Tdap and Td Vaccines (1 - Tdap) 1969 Zoster Vaccines (1 of 2) 2000 RSV Immunization or 60+ Years (1 - Risk 60-74 years 1-dose series) 2010 Annual Medicare Wellness Visit 10/28/2015 Pneumococcal Vaccine: 50+ Years (2 of 2 - PCV) 06/11/2018 06/11/2017 Hemoglobin A1C 06/01/2024 12/03/2023, 01/0 07/2022, 12/06/2021, Additional history exists COVID-19 Vaccine (1 - 2024-25 season) 2024 Influenza Adult (#1) 2024 01/05/2018 Lipid Panel 08/15/2025 08/15/2024, 11/05, 03/12/2022, Additional history exists Colorectal Cancer Screening Colonoscopy (10 Years) 11/29/2025 11/30/2015 Meningococcal B Vaccine Aged Out No l onger eligible based on patient's age to complete this topic Meningococcal Vaccine Aged Out No chun ever eligible based on patient's age to complete this topic RSV Immunizations Under 20 Months Aged Out No longer eligible based on patient's age to complete this topic Goals Goal Patient Goal Type Associated Problems Recent Progress Patient-Stated? Author Safety Patient/family will have appropriate support at home upon discharge Lifestyle No Trina Mendoza RN Medical Devices Implanted Type Area Medical Accountant Device Identifier Shelf Expiration Date Model / Serial / Lot Cv Synergy Wilfred-Lad-2017 Implanted:05/2017 by Roney Rivera MD (Quantity not on file) Stent Coronary LAD Blink Booking [id number] / / [id number] Procedures Procedure Name Priority Date/Time Associated Diagnosis Comments LIPID PANEL Routine 08/15/2024 HEMOGLOBIN, GLYCOSYLATED Routine 12/03/2023 5:37 AM CDT COLONOSCOPY GENERIC (SCAN ORDER) Routine 11/30/2015 from Last 3 Months or Most Recently Relevant to Health Maintenance Results * LIPID PANEL (08/15/2024) CHOLESTEROL 134 TRIGLYCERIDES 181 HDL 34 LDL (CALCULATED) 69 CHOL/HDL RATIO 3.9 VLDL CALCULATION 31 Narrative Resulting Agency Comment [facility], [place] Maicol Gómez MD LABORATORY Final Result * (ABNORMAL) HEMOGLOBIN, GLYCATED (12/03/2023 5:37 AM CDT) HGB A1C 6.4(H) <5.7 % 12/03/2023 6:56 AM CDT [facility] ESTIMATED AVG GLUCOSE 137(H) 74 - 114 MG/DL 12/03/2023 6:56 AM CDT [facility] 12/03/2023 5:37 AM CDT Stefano Rabago MD LABORATORY Final Res ult [facility] [address] [place] [address], [id number] * COLONOSCOPY (11/30/2015) us Documents Scanned SCANNING Final Result from Last 3 Months or Most Recently Relevant to Health Maintenance Insurance MEDICARE MEDICARE Advance Directives * Full Code (Latest Code Status on File) Date Activated Date Inactivated Comments 12/02/2023 10:26 PM 12/03/2023 3:39 PM * Full Code Date Activated Date Inactivated Comments 03/13/2022 9:18 PM 03/19/2022 1:14 PM * Full Code Date Activated Date Inactivated Comments 03/09/2022 5:44 PM 03/13/2022 9:18 PM * Full Code Date Activated Date Inactivated Comments 03/09/2022 2:41 AM 03/09/2022 5:44 PM * Full Code Date Activated Date Inactivated Comments 01/05/2018 1:38 AM 01/06/2018 5:35 PM Care Teams Lending Advisor Relationship Specialty Start Date End Date Maicol Gómez MD [address] [place] [address] PCP - General FAMILY PRACTICE 01/04/18 Lonnie Christian MD [address] [place] [address] Consulting Physician GASTROENTEROLOGY 07/19/18 Cayetano Ha MD [address] [place] [id number] SURGERY 10/15/18 Erki Rosen MD [facility] [id number] INTERVENTIONAL CARDIOLOGY 06/21/23 Chayo Villa ANP- [facility] [place] [address] Nurse Practitioner NURSE PRACTITIONER ADULT HEALTH 06/21/23
--- NOTE | 2024-12-13 13:54 | ECG_ITS ---
Test Date: 2024-12-13 13:59:04 Measurements Intervals [place] Rate: 66 P: -11 AL: 178 QRS: -7 QRSD: 102 T: 82 QT: 421 QTc: 442 Interpretive Statements SINUS RHYTHM WITH SINUS ARRHYTHMIA INCOMPLETE RIGHT BUNDLE BRANCH BLOCK CANNOT R/O SEPTAL INFARCT, AGE INDETERMINATE BORDERLINE ST-T WAVE ABNORMALITY- HIGH LATERAL LEADS BASELINE ARTIFACT- I, II, AVR, AVF, V1 ABNORMAL ECG Compared to ECG 12/02/2023 18:06:58 NO SIGNIFICANT CHANGE Electronically Signed On 12-13-2024 15:53:19 CDT by Raul Richmond D.O.
[2024-12-13 14:24] LABS: Hematocrit 46.8 % (37.0-46.0); Hemoglobin 15.2 g/dL (12.4-15.3); Immature Granulocyte Percent A 1.0 % (0.0-0.0); Lymphocytes Absolute Auto 2.71 K/mm3 (1.10-4.50); Mean Corpuscular HGB Conc 32.5 g/dL (32-36); Mean Corpuscular Hemoglobin 30.8 pg (27.0-31.0); Mean Corpuscular Volume 94.7 fL (78.0-102.0); Nucleated Red Blood Cells Absolute Auto 0.00 K/mm3 (0.00-0.00); Nucleated Red Blood Cells Perc 0.0 % (0-0.0); Platelet Count Result 187 K/mm3 (150-420); Red Blood Count 4.94 M/mm3 (4.70-6.10); White Blood Count 10.5 K/mm3 (4.8-10.8)
[2024-12-13] MEDS: SODIUM CHLORIDE 0.9% IV 1,000 ML 999 ML IV CONT (14:34)
--- NOTE | 2024-12-13 14:34 | PC.NURSE ---
pt return to xray department. feeling better.
[2024-12-13 14:37] LABS: Alanine Aminotransferase 29 U/L (6-50); Albumin Level 4.0 g/dL (3.5-5.1); Alkaline Phosphatase 61 U/L (38-126); Anion Gap 9 mmol/L (4-12); Aspartate Amino Transferase 25 U/L (17-59); Bilirubin,Total 0.6 mg/dL (0.2-1.3); Blood Urea Nitrogen 19 mg/dL (9-20); Calcium 9.0 mg/dL (8.4-10.2); Carbon Dioxide 25 mmol/L (22-30); Chloride 107 mmol/L (98-107); Estimated CRCL calculation 65 ml/min; Estimated Glomerular Filt Rate > 60; Glucose 131 mg/dL (65-110); Lipase 40 U/L (23-300); Magnesium 1.6 mg/dL (1.6-2.3); Osmolality Calculated 296 mOsm/kg (285-295); Potassium 4.3 mmol/L (3.4-5.0); Sodium 141 mmol/L (137-145); Total Protein 6.9 g/dL (6.3-8.2)
[2024-12-13 14:41] LABS: INR 1.0; Partial Thromboplastin Time 25.7 Sec (23.9-30.70); Prothrombin Time 10.7 Seconds (9.50-12.1)
[2024-12-13 14:58] LABS: Cannabinoid Screen Urine Positive (Negative)
[2024-12-13 15:00] LABS: Influenza A QL RT-PCR Negative (Negative); Influenza B QL RT-PCR Negative (Negative); RSV RNA, RT-PCR Negative (Negative); SARS-CoV-2 RNA PCR Negative (Negative)
--- NOTE | 2024-12-13 15:45 | ED.ABDPAIN ---
HPI - Abdominal Pain General Chief Complaint: Urogenital-Male Stated Complaint: dizziness Source: patient Mode of arrival: ambulatory Limitations: no limitations History of Present Illness HPI narrative: This is a 74-year-old male with history of BPH on finasteride and tamsulosin but has for gotten to take a few his doses presents via EMS with some feeling of weakness and not able to pass urine for the last day or so. Patient has suprapubic pain in his lower belly with no flank pain no hematuria no fever chills no nausea vomiting no diarrhea constipation no chest pain or shortness of breath. MD elicited complaint: abdominal pain Pertinent past history: past UTI Onset (ago): day(s) Pain Consistency: constant Related Data Home Medications ?Medication ?Instructions ?Recorded ?Confirmed ?Last Taken ?Type finasteride 5 mg tablet 5 mg PO DAILY 02/13/19 12/02/23 07/05/20 History metformin 500 mg tablet 500 mg PO BID 02/13/19 12/02/23 07/05/20 History metoprolol tartrate 25 mg tablet 12.5 mg PO BID 02/13/19 12/02/23 07/05/20 History lovastatin 20 mg tablet 20 mg PO DAILY 07/18/19 12/02/23 07/05/20 History aspirin 81 mg tablet,delayed 81 mg PO DAILY 11/14/20 12/02/23 Unknown History release (Adult Low Dose Aspirin) meclizine 25 mg tablet 25 mg PO TID PRN Dizziness Or 11/14/20 12/02/23 Unknown History Vertigo tamsulosin 0.4 mg capsule 0.4 mg PO DAILY 12/02/23 12/02/23 Unknown History Allergies Allergy/AdvReac Type Severity Reaction Status Date / Time Penicillins Allergy Unknown Unknown Verified 11/08/24 11:08 carbamazepine (From Tegretol) Allergy Unknown Verified 11/08/24 11:08 clindamycin Allergy Unknown Verified 11/08/24 11:08 ketorolac (From Toradol) AdvReac Hallucinati Verified 11/08/24 11:08 ng tramadol AdvReac Hallucinati Verified 11/08/24 11:08 ng Review of Systems Review of Systems: All systems reviewed & are unremarkable except as noted in HPI and below PMFSH Past Medical History Medical History History of heart attack Colon cancer screening Tobacco abuse Bloating Non-cardiac chest pain Gastroesophageal reflux disease Type 2 diabetes mellitus Hypertension BPH (benign prostatic hyperplasia) Diabetes mellitus CAD (coronary artery disease) Surgical History Surgical History History of coronary artery stent placement x2 Social History Social History Smoking packs per day: 1.5 Smoking cigarettes per day: 30.0 Smoking status: Current every day smoker Tobacco type: cigarettes Alcohol intake: never Substance use: current Substance use type: marijuana Lack of Transportation: No Lack of Food: Never True Current Housing: I Have Housing Concerned About Future Housing: No Difficulty Paying Gas/Electric Bills: No Difficulty Paying for Meds: No Currently Unemployed: No Education: High School Diploma/GED Difficulty w/ Childcare or Family Care: No Living arrangements: alone Gender identity (if verbalized by the patient): Male Spiritual care concerns: No Exam Const: General: healthy appearing and no acute distress Nutritional Appearance: well nourished and obese Resp: Effort & Inspection: normal respiratory effort Auscultation: clear to auscultation bilaterally Cardio: Rate: regular rate Rhythm: regular rhythm : Other: Suprapubic tenderness with palpation Urinary Catheter: Urinary Catheter: urine clear Back/Spine/Pelvis: Back: no CVA tenderness Skin: General skin exam: normal color Rashes: no rashes Neuro: General: patient oriented x3 and moves all extremities Course Course Emergency Course: medical decision making aorta: The patient was evaluated by self only a. History is obtained from the patient was an independent historian and physical exam performed witnessed by a nurse. External records were reviewed at this time. Patient had CT of the abdomen which shows enlarged prostate Labs performed showed no acute abnormalities UA was performed and reviewed. The patient had a lower blood pressure initially by EMS and upon arrival after received a L of fluids blood pressure currently 120 systolic. The patient received another L of fluids in emergency department. Patient had a Rahman placed and 500cc of clear urine drained. Patient given a dose of Bactrim DS. Repeat assessment: Patient doing well repeat exam no acute distress. Rahman catheter removed. Symptoms improved since arrival to the ED vital signs stable. Patient agrees with discussion after shared medical decision-making and agrees with DCP. All questions answered patient satisfaction Advised follow-up in 3 to 5 days with his primary. Patient provided with strict return precautions and return to the ED if any worsening symptoms. Vital Signs Vital signs: Vital Signs Temperature 36.5 C 12/13/24 13:42 Pulse Rate 71 12/13/24 13:42 Respiratory Rate 20 12/13/24 13:42 Blood Pressure 111/62 12/13/24 13:42 Pulse Oximetry 94 12/13/24 13:42 Oxygen Delivery Room Air 12/13/24 13:42 Temperature 36.5 C 12/13/24 13:42 Pulse Rate 58 L 12/13/24 15:31 Respiratory Rate 16 12/13/24 15:31 Blood Pressure 119/62 12/13/24 15:31 Pulse Oximetry 95 12/13/24 15:31 Oxygen Delivery Room Air 12/13/24 15:31 MDM - Abdominal Pain Lab Data 12/13/24 14:10 12/13/24 14:10 Labs: Lab Results 12/13/24 12/13/24 Range/Units 14:08 14:10 WBC 10.5 (4.8-10.8) K/mm3 RBC 4.94 (4.70-6.10) M/mm3 Hgb 15.2 (12.4-15.3) g/dL Hct 46.8 H (37.0-46.0) % MCV 94.7 (78.0-102.0) fL MCH 30.8 (27.0-31.0) pg MCHC 32.5 (32-36) g/dL RDW 13.1 (11.6-14.4) % Plt Count 187 (150-420) K/mm3 MPV 10.8 (8.7-11.0) fl Immature Gran % (Auto) 1.0 H (0.0-0.0) % Neut % (Auto) 62.5 (50.0-70.0) % Lymph % (Auto) 25.8 (18.0-42.0) % [place] % (Auto) 7.1 (2.0-11.0) % Eos % (Auto) 2.9 (1.0-6.0) % Baso % (Auto) 0.7 (0.0-1.0) % Lymph # (Auto) 2.71 (1.10-4.50) K/mm3 [place] # (Auto) 0.75 (0.10-0.90) K/mm3 Eos # (Auto) 0.31 (0.02-0.50) K/mm3 Baso # (Auto) 0.07 (0.00-0.10) K/mm3 Abs Immat Gran (auto) 0.11 H (0.00-0.00) K/mm3 Absolute Neuts (auto) 6.57 (1.70-7.20) K/mm3 Absolute Nucleated RBC 0.00 (0.00-0.00) K/mm3 Nucleated RBC % 0.0 (0-0.0) % PT 10.7 (9.50-12.1) Seconds INR 1.0 APTT 25.7 (23.9-30.70) Sec Sodium 141 (137-145) mmol/L Potassium 4.3 (3.4-5.0) mmol/L Chloride 107 (98-107) mmol/L Carbon Dioxide 25 (22-30) mmol/L Anion Gap 9 (4-12) mmol/L BUN 19 (9-20) mg/dL Creatinine 0.94 (0.7-1.3) mg/dL Estim Creat Clear Calc 65 ml/min Estimated GFR > 60 (59 - ) Glucose 131 H (65-110) mg/dL Calculated Osmolality 296 H (285-295) mOsm/kg Lactic Acid 1.7 (0.4-2.0) mmol/L Calcium 9.0 (8.4-10.2) mg/dL Magnesium 1.6 (1.6-2.3) mg/dL Total Bilirubin 0.6 (0.2-1.3) mg/dL AST 25 (17-59) U/L ALT 29 (6-50) U/L Alkaline Phosphatase 61 (38-126) U/L Total Protein 6.9 (6.3-8.2) g/dL Albumin 4.0 (3.5-5.1) g/dL Lipase 40 (23-300) U/L Urine Opiates Screen Negative (Negative) Urine Methadone Screen Negative (Negative) Ur Barbiturates Screen Negative (Negative) Ur Phencyclidine Scrn Negative (Negative) Ur Amphetamine Screen Negative (Negative) U Benzodiazepines Scrn Negative (Negative) Urine Cocaine Screen Negative (Negative) U Cannabinoids Screen Positive A (Negative) Influenza A (RT-PCR) Negative (Negative) Influenza B (RT-PCR) Negative (Negative) RSV (RT-PCR) Negative (Negative) SARS-CoV-2 RNA (RT-PCR) Negative (Negative) Imaging Data Radiologist's impression: ITS Impressions Chest X-Ray 12/13/24 14:38 Impression: No acute cardiopulmonary abnormality. Abdomen/Pelvis CT 12/13/24 15:26 IMPRESSION: No acute intra-abdominal process. Incidental findings above Critical Care Time Critical Care Time Critical Care Time: No Discharge Plan Discharge Clinical Impression: BPH (benign prostatic hyperplasia) Qualifiers: Lower urinary tract symptom presence: symptoms present Lower urinary tract symptom detail: urinary retention Qualified Code(s): N40.1 - Benign prostatic hyperplasia with lower urinary tract symptoms UTI (urinary tract infection) Qualifiers: Urinary tract infection type: site unspecified Hematuria presence: without hematuria Qualified Code(s): N39.0 - Urinary tract infection, site not specified Patient Disposition: Home Condition: Stable Instructions: Antibiotic Form, Enlarged Prostate (BPH) (ED), Urinary Tract Infection in Men (ED) Additional Instructions: advised patient to take medication as prescribed and to follow with primary care physician 3 to 5 days for further evaluation and treatment. Patient Language: Syriac Prescriptions: New sulfamethoxazole-trimethoprim [Bactrim DS] 800-160 mg tablet 1 tablet PO Q12H Qty: 14 0RF No Action hydrocodone-acetaminophen 5-325 mg tablet 1 tablet PO HS PRN (Reason: pain) Qty: 3 0RF doxycycline hyclate 100 mg tablet 100 mg PO BID Qty: 14 0RF metformin 500 mg tablet 500 mg PO BID finasteride 5 mg tablet 5 mg PO DAILY metoprolol tartrate 25 mg tablet 12.5 mg PO BID lovastatin 20 mg tablet 20 mg PO DAILY aspirin [Adult Low Dose Aspirin] 81 mg Tablet,Delayed Release (Dr/Ec) 81 mg PO DAILY meclizine 25 mg tablet 25 mg PO TID PRN (Reason: Dizziness Or Vertigo) tamsulosin 0.4 mg capsule 0.4 mg PO DAILY Follow-up/Referrals: Maicol Gómez M.D. [Primary Care Provider, [facility]]
[2024-12-13 15:49] LABS: Add Urine Microscopic? NO; Appearance Urine Clear (Clear); Glucose Urine UA Negative (Negative); Leukocyte Esterase Ur Negative LEU/UL (Negative); Nitrate Urine Negative (Negative); Specific Grav Ur 1.025 (1.010-1.020)
[2024-12-13] MEDS: SULFAMETHOXAZOLE/TRIMETHOPRIM 800/160 MG DS TABLET 1 TAB PO (16:00)
--- NOTE | 2024-12-17 14:39 | PC.NURSE ---
blood culture, preliminary, no growth
--- NOTE | 2024-12-18 12:19 | PC.NURSE ---
PRELIMINARY BLOOD CULTURE REPORT; NO GROWTH IN 48 HOURS
--- NOTE | 2024-12-21 17:04 | PC.NURSE ---
blood cultures x2 reviewed. no growth in 5 days. no change in plan of care.
== END 2024-12-13 16:02 | disposition home or self-care (01) ==
PROVIDERS: Emergency Provider Emergency Medicine; PCP Family Medicine
DX: N40.1 Benign prostatic hyperplasia with lower urinary tract symptoms (principal); N39.0 Urinary tract infection, site not specified; E11.9 Type 2 diabetes mellitus without complications; I25.10 Atherosclerotic heart disease of native coronary artery without angina pectoris; I10 Essential (primary) hypertension; I25.2 Old myocardial infarction; F17.210 Nicotine dependence, cigarettes, uncomplicated; Z20.822 Contact with and (suspected) exposure to COVID-19; Z79.899 Other long term (current) drug therapy
CPT/HCPCS: 36415; 71045; 74176; 80053; 80307; 81003; 83605; 83690; 83735; 85025; 85610; 85730; 87040; 87637; 93005; 96360; 99284; A9270; J7030

== ENCOUNTER 2025-01-27 08:43 | Outpatient (CLI) | payer MEDICARE, SELFPAY ==
--- NOTE | ~2025-01-27 | CT_ITS ---
EXAMINATION: CT lung screening DATE: 01/27/2025 09:12 INDICATION: Personal history of nicotine dependence TECHNIQUE: Computed tomography (CT) of the chest was performed without intravenous contrast. The dose-length product was 100.00 mGy-cm. Automated exposure control and iterative reconstruction technique were employed. COMPARISON: CT dated 01/14/2024 FINDINGS: Stable 2 mm left fissural nodule. No endobronchial lesions. No focal airspace disease. No pneumothorax. No endobronchial lesions. No pneumothorax. Status post median sternotomy for CABG. Heart size normal. Status post cholecystectomy. Moderate thoracic spondylosis. Accentuated thoracic kyphosis. IMPRESSION: 1. Lung-RADS category 2: Benign appearance or behavior. Continue annual screening with noncontrast low-dose chest CT in 12 months. Reviewed, dictated and finalized at location O. RICT RANGER IMPRESSION: 1. Lung-RADS category 2: Benign appearance or behavior. Continue annual screeni ng with noncontrast low-dose chest CT in 12 months.
--- OUTSIDE RECORDS SUMMARY | 2025-01-27 08:57 | XMS_ITS | Clinical Summary ---
Author Organization [facility] Address [address] [address] Phone Care Team Providers Care Mineralogy Teacher Name Role Phone Maicol Gómez MD Primary Care Provider [phone] Social History Tobacco Use Types Packs/Day Years [...] complete this topic Insurance MEDICARE Care Teams Mineralogy Teacher Relationship Specialty Start Date End Date Maicol Gómez MD [address] [place] [place] [address] PCP - General Family Medicine 11/15/17
--- OUTSIDE RECORDS SUMMARY | 2025-01-27 08:57 | XMS_ITS | Clinical Summary ---
Author Organization [facility] Address [address] [place] [address] Care Team Providers Care Microwave Supervisor Name Role Phone Maicol Gómez MD Primary Care Provider [phone] Lonnie Christian MD Unavailable Cayetano Ha MD Unavailable Un available Erik Rosen MD Unavailable [phone] [facility]- Unavailable [phone] Allergies Active Allergy Reactions Criticality Noted Date [...] Problem Noted Date Diagnosed Date Unstable angina 12/03/2023 Chest pain 12/03/2023 S/P CABG x 2 03/24/2022 NSTEMI (non-ST elevated myocardial infarction) 0 03/09/2022 Tobacco abuse 11/26/2020 Chronic abdominal pain 09/13/2018 Bloating 07/24/2018 Mixed hyperlipidemia 01/05/2018 Coronary artery disease invo lving [place] coronary artery of [place] heart without angina pectoris 01/05/2018 Gastroesophageal reflux disease without esophagi tis 01/05/2018 Type 2 diabetes mellitus wit hout complication, without long-term current use of insulin 01/05/2018 Benign prostatic hyperplasia with urinary retent ion 01/05/2018 Acute retention of urine 01/05/2018 Gross hematuria 01/05/2018 Non-STEMI (non-ST elevated myocardial infarction ) 01/04/2018 Hypertension GERD (gastroesophageal reflux disease) S/P [...] from your doctor or pharmacy? Rarely 12/03/2023 [facility] Utilities Answer Date Recorded In the past 12 months has th e POW, gas, oil, or water company threatened to shut off services in your [...] No 12/03/2023 Social Connection and Isolation Panel Answer Date Recorded In a typical week, how many times do you talk on the phone with family, friends, or neighbors? Never 12/03/2023 How often do you get together with friends or re latives? Never 12/03/2023 How often do you attend anabaptist or baptist serv ices? Never 12/03/2023 Do you belong to any clubs o r organizations such as anabaptist groups, unions, fraternal or athletic groups, or [...] Recorded Patient Health Questionnaire-2 Score 0 12/03/2023 [facility] [place] of Occupat ional Health - Occupational Stress [...] place to sleep or slept in a long-term (including now)? No 03/09/2022 Housing Stability Vital Sign Answer Fredi e Recorded In the last 12 months, was t here a time when you were not able to pay the mortgage or rent on time? No 12/03/2023 In the past 12 months, how m any times have you moved where you were living? 0 12/03/2023 At any time in the past 12 m [facility] [place], were you homeless or living in a long-term (including now)? No 12/03/2023 Sex and Gender [...] PCV) 06/11/2018 06/11/2017 Hemoglobin A1C 06/01/2024 12/03/2023, /0 07/2022, 12/06/2021, Additional history exists COVID-19 Vaccine (1 - season) 2024 Influenza Adult (#1) 2024 01/05/2018 Lipid Panel 08/15/2025 08/15/2024, 11/05, 03/12/2022, Additional history exists Colorectal Cancer Screening Colonoscopy (10 Years) 11/29/2025 11/30/2015 Hepatitis A Vaccines Aged Out No long er eligible based on patient's age to complete this topic Meningococcal B Vaccine Aged Out No l [...] Mendoza RN Medical Devices Implanted Type Area Mechanical Expert Device Identifier Shelf Expiration Date Model / Serial / Lot Cv Synergy Wilfred-Lad-2017 Implanted:05/2017 by Roney Rivera MD (Quantity not on file) Stent Coronary LAD ZENTICKET [id number] / / [id number] Procedures Procedure Name Priority Date/Time Associated Diagnosis Comments LIPID PANEL Routine 08/15/2024 HEMOGLOBIN, GLYCOSYLATED Routine 12/03/2023 5:37 AM CDT COLONOSCOPY GENERIC (SCAN ORDER) Routine 11/30/2015 from Last 3 Months or Most Recently Relevant to Health Maintenance Results * LIPID PANEL (08/15/2024) CHOLESTEROL 134 TRIGLYCERIDES 181 HDL 34 LDL (CALCULATED) 69 CHOL/HDL RATIO 3.9 VLDL CALCULATION 31 Narrative Resulting Agency [facility] Maicol Gómez MD LABORATORY Final Result * (ABNORMAL) HEMOGLOBIN, GLYCATED (12/03/2023 5:37 AM CDT) HGB A1C 6.4(H) <5.7 % 12/03/2023 6:56 AM CDT [facility] ESTIMATED AVG GLUCOSE 137(H) 74 - 114 MG/DL 12/03/2023 6:56 AM CDT [facility] 12/03/2023 5:37 AM CDT Stefano Rabago MD LABORATORY Final Res ult [facility] [address] [place] [address], [id number] * COLONOSCOPY (11/30/2015) us Documents Scanned SCANNING [...] 1:38 AM 01/06/2018 5:35 PM Care Teams Microwave Supervisor Relationship Specialty Start Date End Date Maicol Gómez MD [address] [place] [address] PCP - General FAMILY PRACTICE 01/04/18 Lonnie Christian MD [facility] [place] [address] Consulting Physician GASTROENTEROLOGY 07/19/18 Cayetano Ha MD [facility] [place] [address] SURGERY 10/15/18 Erik Rosen MD [facility] [facility] INTERVENTIONAL CARDIOLOGY 06/21/23 Chayo Villa ANP- [address] [place] [address] Nurse Practitioner NURSE PRACTITIONER ADULT HEALTH 06/21/23
--- OUTSIDE RECORDS SUMMARY | 2025-01-27 08:57 | XMS_ITS | Encounter Summary ---
Author Organization [facility] Address [address] [place] [address] Care Team Providers Care Feather Shaper Name Role Phone Maicol Gómez MD Primary Care Provider [phone] Cayetano Loera MD Unavailable [phone] Lonnie Christian MD Unavailable Cayetano Ha MD Unavailable Un available Erik Rosen MD Unavailable [phone] [facility] Unavailable [phone] Encounter Details Date Type Department Care Team (Late st Contact Info) Description 03/20/2022 Hospital Follow-up Call [facility] [address] [place] [address] Vickie Olson, RN Social History [...] No 03/09/2022 Social Connection and Isolation Panel Answer Date Recorded In a typical week, how many times do you talk on the phone with family, friends, or neighbors? Never 03/09/2022 How often do you get together with friends or re latives? Never 03/09/2022 How often do you attend lutheran or mosque serv ices? Never 03/09/2022 Do you belong to any clubs o r organizations such as lutheran groups, unions, fraternal or athletic groups, or [...] Recorded Patient Health Questionnaire-2 Score 0 03/09/2022 [facility] of Occupat ional Health - Occupational [...] place to sleep or slept in a skilled nursing (including now)? No 03/09/2022 Sex and Gender [...] Coronavirus/COVID-19? No / Unsure 03/09/2022 2:14 AM MAIL MESSENGER documented as of this encounter Functional Status * RETIRED Are you deaf or do you have serious difficulty hearing Answer Date of Assessment Author Status No 03/09/2022 2:24 AM MAIL MESSENGER Activ e * RETIRED Are you blind or do you have serious difficulty seeing, even when wearing glasses? Answer Date of Assessment Author Status No 03/09/2022 2:24 AM MAIL MESSENGER Activ e * Do you have serious difficulty walking or climbing stairs? Answer Date of Assessment Author Status No 03/09/2022 2:24 AM MAIL MESSENGER Gagan Kohli RN Active * Do you [...] on filedocumented in this encounter Care Teams Feather Shaper Relationship Specialty Start Date End Date Maicol Gó[place] [address] [place] [address] [place] [address] PCP - General FAMILY PRACTICE 01/04/18 Cayetano Loera MD [address] [place], [place] [address] [place] Psychotherapist Social Worker CARDIOVASCULAR DISEASE 02/01/18 06/20/23 Lonnie Christian MD [address] [place], [place] [id number] Consulting Physician GASTROENTEROLOGY 07/19/18 Cayetano Ha MD [address] [place] [phone] SURGERY 10/15/18 Erik Rosen MD [address] [place] [address] INTERVENTIONAL CARDIOLOGY 06/21/23 Chayo Villa ANP- [address] [place] [address] Nurse Practitioner NURSE PRACTITIONER ADULT HEALTH 06/21/23 documented as of this encounter
== END 2025-01-27 08:44 | disposition home or self-care (01) ==
PROVIDERS: PCP Family Medicine; Visit Provider Physician Assistant
DX: Z12.2 Encounter for screening for malignant neoplasm of respiratory organs (principal); Z87.891 Personal history of nicotine dependence
CPT/HCPCS: 71271

== ENCOUNTER 2025-02-21 10:06 | Emergency (ER) | payer MEDICARE, SELFPAY ==
[2025-02-21] VITALS (21 sets, daily range): BP systolic 104–153; BP diastolic 55–86; PULSE 68–91; RESP 16–20; TEMP 36.4; O2SAT 90–96
--- NOTE | ~2025-02-21 | XR_ITS ---
XR chest 2V 02/21/2025 11:15 Indication: Dizziness Procedure: 2 view chest Comparison: Comparison to multiple prior studies sequentially, with oldest reviewed study dated 02/24/2023. Findings: Status post median sternotomy for CABG. Heart size normal. No focal air space disease, pulmonary edema, pleural effusion or suspected pneumothorax. There is a coronary artery stent. Diffuse osteopenia. Impression: 1: No acute cardiopulmonary disease. Reviewed, dictated and finalized at location O. LE LAT[employer] OPERATOR Impression: 1: No acute cardiopulmonary disease.
--- NOTE | ~2025-02-21 | CT_ITS ---
CT HEAD NON-CONTRAST Clinical History: dizziness Comparison: 11/14/2020 Technique: Unenhanced axial images skull base to vertex Coronal, sagittal reformats CT images acquired with automatic exposure control for dose reduction DLP: 681 mGy-cm Findings: Sulci, ventricles: Unremarkable. No intracerebral hemorrhage. No evidence acute territorial infarct. No mass effect, midline shift. 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 Visualized paranasal sinuses: Left maxillary and sphenoid mucosal thickening. Mastoid air cells: Clear. Severe dental disease. IMPRESSION: 1. No acute intracranial findings. Reviewed, dictated and finalized at location R. [employer] MANAGER
--- OUTSIDE RECORDS SUMMARY | 2025-02-21 10:08 | XMS_ITS | Clinical Summary ---
Author Organization [facility] Address [address] [place] [address] Care Team Providers Care Crystal Grower Name Role Phone Maicol Gómez MD Primary Care Provider [phone] Lonnie Christian MD Unavailable Cayetano Ha MD Unavailable Un available Erik Rosen MD Unavailable [phone] [facility]- Unavailable [phone] Allergies Active Allergy Reactions Criticality Noted Date [...] hyperlipidemia 01/05/2018 Coronary artery disease invo lving [place] coronary artery of [place] heart without angina pectoris 01/05/2018 Gastroesophageal reflux [...] from your doctor or pharmacy? Rarely 12/03/2023 [facility] Utilities Answer Date Recorded In the past 12 months has th e [employer], gas, oil, or water company threatened to [...] Never 12/03/2023 How often do you attend bahai or moravian serv ices? Never 12/03/2023 Do you belong to any clubs o r organizations such as bahai groups, unions, fraternal or athletic groups, or [...] Recorded Patient Health Questionnaire-2 Score 0 12/03/2023 [facility] [place] of Occupat ional Health - Occupational Stress [...] place to sleep or slept in a half-way (including now)? No 03/09/2022 Housing Stability Vital Sign Answer Fredi e Recorded In the last 12 months, was t here a time when you were not able to pay the mortgage or rent on time? No 12/03/2023 In the past 12 months, how m any times have you moved where you were living? 0 12/03/2023 At any time in the past 12 m [facility], were you homeless or living in a half-way (including now)? No 12/03/2023 Sex and Gender [...] Mendoza RN Medical Devices Implanted Type Area Hr Leader Device Identifier Shelf Expiration Date Model / Serial / Lot Cv Synergy Wilfred-Lad-2017 Implanted:05/2017 by Roney Rivera MD (Quantity not on file) Stent Coronary LAD Diasome [id number] / / [id number] Procedures Procedure Name Priority Date/Time Associated Diagnosis Comments LIPID PANEL Routine 08/15/2024 HEMOGLOBIN, GLYCOSYLATED Routine 12/03/2023 5:37 AM CDT COLONOSCOPY GENERIC (SCAN ORDER) Routine 11/30/2015 from Last 3 Months or Most Recently Relevant to Health Maintenance Results * LIPID PANEL (08/15/2024) CHOLESTEROL 134 TRIGLYCERIDES 181 HDL 34 LDL (CALCULATED) 69 CHOL/HDL RATIO 3.9 VLDL CALCULATION 31 Narrative Resulting Agency Comment [facility] [place] Maicol Gómez MD LABORATORY Final Result * (ABNORMAL) HEMOGLOBIN, GLYCATED (12/03/2023 5:37 AM CDT) HGB A1C 6.4(H) <5.7 % 12/03/2023 6:56 AM CDT [facility] ESTIMATED AVG GLUCOSE 137(H) 74 - 114 MG/DL 12/03/2023 6:56 AM CDT [facility] 12/03/2023 5:37 AM CDT Stefano Rabago MD LABORATORY Final Res ult [facility] [address] [place] [address], [id number] * COLONOSCOPY (11/30/2015) us Documents Scanned SCANNING [...] 1:38 AM 01/06/2018 5:35 PM Care Teams Crystal Grower Relationship Specialty Start Date End Date Maicol Gómez MD [address] [place] [address] PCP - General FAMILY PRACTICE 01/04/18 Lonnie Christian MD [facility] [place] [address] Consulting Physician GASTROENTEROLOGY 07/19/18 Cayetano Ha MD [facility] [place] [place] [address] SURGERY 10/15/18 Erik Rosen MD [facility] [phone] INTERVENTIONAL CARDIOLOGY 06/21/23 Chayo Villa ANP- [address] [place] [address] Nurse Practitioner NURSE PRACTITIONER ADULT HEALTH 06/21/23
--- OUTSIDE RECORDS SUMMARY | 2025-02-21 10:08 | XMS_ITS | Clinical Summary ---
Author Organization [facility] Address [address] [address] Phone Care Team Providers Care Psychology Associate Name Role Phone Maicol Gómez MD Primary Care Provider [phone] Social History Tobacco Use Types Packs/Day Years [...] complete this topic Insurance MEDICARE Care Teams Psychology Associate Relationship Specialty Start Date End Date Maicol Gómez MD [address] [place] [address] PCP - General Family Medicine 11/15/17
--- NOTE | 2025-02-21 10:09 | ED.DIZZY ---
HPI - Dizziness General Chief Complaint: Dizziness Stated Complaint: dizziness Time Seen by Provider: 02/21/25 10:08 Source: patient Mode of arrival: ambulatory Limitations: no limitations History of Present Illness HPI Narrative: Patient is a 74-year-old male with some dizziness and vertigo for the past day. He has had this in the past. No nausea vomiting or diarrhea. No chest pain or shortness of breath. No syncope. MD elicited complaint: dizziness, lightheadedness and vertigo Pertinent past history: BPPV Onset (ago): day(s) (2) Timing: gradual onset Severity: moderate Description: sense of movement and lightheadedness Context: other (Patient has recent onset of dizziness and vertigo since yesterday with unresolved complaint at this time) History of similar symptoms: Yes Exacerbating factors: movement/ambulation and change in body position Relieving factors: remaining still Associated symptoms: denies other symptoms Associated neuro symptoms: other (None) Stroke scale total: 0 Related Data Home Medications ?Medication ?Instructions ?Recorded ?Confirmed ?Last Taken ?Type finasteride 5 mg tablet 5 mg PO DAILY 02/13/19 12/02/23 07/05/20 History metformin 500 mg tablet 500 mg PO BID 02/13/19 12/02/23 07/05/20 History metoprolol tartrate 25 mg tablet 12.5 mg PO BID 02/13/19 12/02/23 07/05/20 History lovastatin 20 mg tablet 20 mg PO DAILY 07/18/19 12/02/23 07/05/20 History aspirin 81 mg tablet,delayed 81 mg PO DAILY 11/14/20 12/02/23 Unknown History release (Adult Low Dose Aspirin) meclizine 25 mg tablet 25 mg PO TID PRN Dizziness Or 11/14/20 12/02/23 Unknown History Vertigo tamsulosin 0.4 mg capsule 0.4 mg PO DAILY 12/02/23 12/02/23 Unknown History Allergies Allergy/AdvReac Type Severity Reaction Status Date / Time Penicillins Allergy Unknown Unknown Verified 02/21/25 10:16 carbamazepine (From Tegretol) Allergy Unknown Verified 02/21/25 10:16 clindamycin Allergy Unknown Verified 02/21/25 10:16 ketorolac (From Toradol) AdvReac Hallucinati Verified 02/21/25 10:16 ng tramadol AdvReac Hallucinati Verified 02/21/25 10:16 ng Review of Systems Review of Systems: All systems reviewed & are unremarkable except as noted in HPI and below Constitutional: Constitutional: Reports no additional constitutional complaints Eyes: Eyes: Reports no additional eye complaints ENT: Reports system reviewed and no additional complaints, except as documented Cardiovascular: Cardiovascular: Reports no additional cardiovascular complaints Respiratory: Respiratory: Reports no additional respiratory complaints Gastrointestinal: Gastrointestinal: Reports no additional gastrointestinal complaints Genitourinary: Genitourinary: Reports no additional male genitourinary complaints Musculoskeletal: Musculoskeletal: Reports no additional musculoskeletal complaints Integumentary/Breasts: Skin/Breast: Reports system reviewed and no additional complaints, except as docu Neurologic: Reports system reviewed and no additional complaints, except as documented Psychiatric: Psychiatric: Reports no additional psychiatric complaints Endocrine: Endocrine: Reports no additional endocrine complaints Hematologic/Lymphatic: Hematologic/Lymphatic: Reports no additional hematologic/lymphatic complaints Allergic/Immunologic: Allergic/Immunologic: Reports no additional allergic/immunologic complaints PMFSH Past Medical History Medical History History of heart attack Colon cancer screening Tobacco abuse Bloating Non-cardiac chest pain Gastroesophageal reflux disease Type 2 diabetes mellitus Hypertension BPH (benign prostatic hyperplasia) Diabetes mellitus CAD (coronary artery disease) Surgical History Surgical History History of coronary artery stent placement x2 Social History Social History Smoking packs per day: 1.5 Smoking cigarettes per day: 30.0 Smoking status: Current every day smoker Tobacco type: cigarettes Alcohol intake: never Substance use: current Substance use type: marijuana Lack of Transportation: No Lack of Food: Never True Current Housing: I Have Housing Concerned About Future Housing: No Difficulty Paying Gas/Electric Bills: No Difficulty Paying for Meds: No Currently Unemployed: No Education: High School Diploma/GED Difficulty w/ Childcare or Family Care: No Living arrangements: alone Gender identity (if verbalized by the patient): Male Spiritual care concerns: No Exam Const: General: healthy appearing Nutritional Appearance: well nourished Orientation/consciousness: patient oriented x3 HENMT: Head: normal to inspection Ears: TM's normal bilaterally Face/Nose/Sinus: Normal external nose present Other: Bilateral red tympanic membrane with loss of landmarks Eyes: Conjunctivae: conjunctivae normal Pupils: Equal, round and reactive pupils present EOM: EOMs intact bilaterally Neck: Neck: normal visual inspection Chest: Chest palpation & inspection: normal inspection of the chest Resp: Effort & Inspection: normal respiratory effort and not labored Auscultation: clear to auscultation bilaterally and no crackles Cardio: Rate: regular rate Rhythm: regular rhythm Heart sounds: no murmurs GI: Inspection: non-distended GI Palp: Yes Soft to palpation and No Tenderness to palpation present (GI) Auscultation: normal bowel sounds : General: Yes bladder normal to palpation Back/Spine/Pelvis: Back: no CVA tenderness Skin: General skin exam: normal color Rashes: no rashes Wounds: no wounds Neuro: General: patient oriented x3, moves all extremities, no meningeal signs, no focal motor deficits and CN's II-XI intact bilaterally Cranial nerves: Yes Nystagmus not present Speech: normal speech Gait exam (Neuro): Normal gait present Other: Fast exam negative, NIH is 0, GCS is 15 Extrem: General: normal to inspection, no clubbing, cyanosis or edema and no pedal edema Psych: Mental Status: mental status grossly normal Affect: normal affect Attitude: cooperative Course Vital Signs Vital signs: Vital Signs Temperature 36.4 C 02/21/25 10:06 Pulse Rate 80 02/21/25 10:06 Respiratory Rate 16 02/21/25 10:06 Blood Pressure 141/70 H 02/21/25 10:06 Pulse Oximetry 93 02/21/25 10:06 Oxygen Delivery Room Air 02/21/25 10:06 Temperature 36.4 C 02/21/25 12:34 Pulse Rate 74 02/21/25 12:34 Respiratory Rate 16 02/21/25 12:34 Blood Pressure 104/55 L 02/21/25 12:34 Pulse Oximetry 93 02/21/25 12:34 Oxygen Delivery Room Air 02/21/25 12:34 [facility] Narrative Medical decision making narrative: Patient is a 74-year-old male with recurrent dizziness and vertigo over the past 2 days. Baseline workup. Try meclizine. Azithromycin. Differential Diagnosis Differential Diagnosis: Vertigo, dizziness, labyrinthitis, ear infection Lab Data [facility] Lab Attestation statement: I personally reviewed the patient's lab results. 02/21/25 11:16 02/21/25 11:16 Labs: Lab Results 02/21/25 02/21/25 Range/Units 11:12 11:16 WBC 10.2 (4.8-10.8) K/mm3 RBC 5.17 (4.70-6.10) M/mm3 Hgb 16.1 H (12.4-15.3) g/dL Hct 49.2 H (37.0-46.0) % MCV 95.2 (78.0-102.0) fL MCH 31.1 H (27.0-31.0) pg MCHC 32.7 (32-36) g/dL RDW 13.2 (11.6-14.4) % Plt Count 252 (150-420) K/mm3 MPV 10.6 (8.7-11.0) fl Immature Gran % (Auto) 1.2 H (0.0-0.0) % Neut % (Auto) 64.2 (50.0-70.0) % Lymph % (Auto) 23.3 (18.0-42.0) % [place] % (Auto) 6.9 (2.0-11.0) % Eos % (Auto) 3.7 (1.0-6.0) % Baso % (Auto) 0.7 (0.0-1.0) % Lymph # (Auto) 2.38 (1.10-4.50) K/mm3 [place] # (Auto) 0.70 (0.10-0.90) K/mm3 Eos # (Auto) 0.38 (0.02-0.50) K/mm3 Baso # (Auto) 0.07 (0.00-0.10) K/mm3 Abs Immat Gran (auto) 0.12 H (0.00-0.00) K/mm3 Absolute Neuts (auto) 6.56 (1.70-7.20) K/mm3 Absolute Nucleated RBC 0.00 (0.00-0.00) K/mm3 Nucleated RBC % 0.0 (0-0.0) % Sodium 141 (137-145) mmol/L Potassium 4.3 (3.4-5.0) mmol/L Chloride 108 H (98-107) mmol/L Carbon Dioxide 25 (22-30) mmol/L Anion Gap 8 (4-12) mmol/L BUN 23 H (9-20) mg/dL Creatinine 1.07 (0.7-1.3) mg/dL Estim Creat Clear Calc 57 ml/min Estimated GFR > 60 (59 - ) Glucose 123 H (65-110) mg/dL Calculated Osmolality 296 H (285-295) mOsm/kg Lactic Acid 1.2 (0.7-2.0) mmol/L Calcium 9.0 (8.4-10.2) mg/dL Total Bilirubin 0.8 (0.2-1.3) mg/dL AST 28 (17-59) U/L ALT 31 (6-50) U/L Alkaline Phosphatase 70 (38-126) U/L Troponin I < 0.012 (0.000-0.034) ng/mL Total Protein 7.1 (6.3-8.2) g/dL Albumin 4.4 (3.5-5.1) g/dL Urine Color Yellow (Yellow) Urine Appearance Clear (Clear) Urine pH 6.0 (5.0-8.0) Ur Specific [place] 1.025 H (1.010-1.020) Urine Protein Negative (Negative) Urine Glucose (UA) Negative (Negative) Urine Ketones Negative (Negative) Ur Blood (Man) 1+ H (Negative) Urine Nitrate Negative (Negative) Urine Bilirubin Negative (Negative) Urine Urobilinogen 0.2 (0.2-1.0) mg/dL Leukocyte Esterase Rfl Negative (Negative) LIZ/UL Urine RBC 0-2 (0-2) /hpf Urine WBC 0-3 (0-3) /hpf Ur Squamous Epith Cells Few (Few) /hpf Urine Bacteria 2+ H (None) /hpf Imaging Data Attestation: I personally reviewed and interpreted this imaging study as follows: Radiologist's impression: ITS Impressions Chest X-Ray 02/21/25 11:16 Impression: 1: No acute cardiopulmonary disease. Head CT 02/21/25 11:21 IMPRESSION: 1. No acute intracranial findings. ECG Data EKG #1: Attestation: I personally reviewed and interpreted this ECG as follows: ECG completion date: 02/21/25 ECG completion time: 19:08 normal rate, sinus rhythm, no ectopy, non-specific ST changes, normal QRS, normal QT and left axis Discharge Plan Discharge Clinical Impression: Dizziness Otitis media Qualifiers: Otitis media type: unspecified Chronicity: acute Qualified Code(s): H66.90 - Otitis media, unspecified, unspecified ear Patient Disposition: Home Condition: Stable Instructions: Antibiotic Form, Ear Infection (AC), Dizziness (ED) Patient Language: Hungarian Prescriptions: New azithromycin 250 mg tablet See Rx Instructions .ROUTE .COMPLEX Qty: 6 0RF Rx Instructions: For 250 mg dose pack: take 500 mg today (day 1), then 250 mg for 4 days (days 2-5) meclizine 25 mg tablet 25 mg PO TID PRN (Reason: dizziness) Qty: 30 0RF No Action hydrocodone-acetaminophen 5-325 mg tablet 1 tablet PO HS PRN (Reason: pain) Qty: 3 0RF doxycycline hyclate 100 mg tablet 100 mg PO BID Qty: 14 0RF metformin 500 mg tablet 500 mg PO BID finasteride 5 mg tablet 5 mg PO DAILY metoprolol tartrate 25 mg tablet 12.5 mg PO BID lovastatin 20 mg tablet 20 mg PO DAILY aspirin [Adult Low Dose Aspirin] 81 mg Tablet,Delayed Release (Dr/Ec) 81 mg PO DAILY meclizine 25 mg tablet 25 mg PO TID PRN (Reason: Dizziness Or Vertigo) tamsulosin 0.4 mg capsule 0.4 mg PO DAILY sulfamethoxazole-trimethoprim [Bactrim DS] 800-160 mg tablet 1 tablet PO Q12H Qty: 14 0RF Follow-up/Referrals: Maicol Gómez M.D. [Primary Care Provider, [facility]] Time of Disposition: 12:24
--- NOTE | 2025-02-21 10:57 | ECG_ITS ---
Test Date: 2025-02-21 11:21:38 Measurements Intervals [place] Rate: 69 P: 9 W[place]: 170 QRS: -7 QRSD: 109 T: 87 QT: 409 QTc: 438 Interpretive Statements SINUS RHYTHM CANNOT R/O SEPTAL INFARCT, AGE INDETERMINATE BORDERLINE ST-T WAVE ABNORMALITY- HIGH LATERAL LEADS ABNORMAL ECG Compared to ECG 12/13/2024 13:59:04 NO SIGNIFICANT CHANGE Electronically Signed On 02-21-2025 17:37:31 [employer] HOUSEKEEPING AIDE by Raul Richmond D.O.
[2025-02-21 11:21] LABS: Hematocrit 49.2 % (37.0-46.0); Hemoglobin 16.1 g/dL (12.4-15.3); Immature Granulocyte Percent A 1.2 % (0.0-0.0); Lymphocytes Absolute Auto 2.38 K/mm3 (1.10-4.50); Mean Corpuscular HGB Conc 32.7 g/dL (32-36); Mean Corpuscular Hemoglobin 31.1 pg (27.0-31.0); Mean Corpuscular Volume 95.2 fL (78.0-102.0); Nucleated Red Blood Cells Absolute Auto 0.00 K/mm3 (0.00-0.00); Nucleated Red Blood Cells Perc 0.0 % (0-0.0); Platelet Count Result 252 K/mm3 (150-420); Red Blood Count 5.17 M/mm3 (4.70-6.10); White Blood Count 10.2 K/mm3 (4.8-10.8)
[2025-02-21 11:28] LABS: Add Urine Microscopic? YES; Appearance Urine Clear (Clear); Glucose Urine UA Negative (Negative); Leukocyte Esterase Ur Negative LEU/UL (Negative); Nitrate Urine Negative (Negative); Specific Grav Ur 1.025 (1.010-1.020)
[2025-02-21 11:33] LABS: Alanine Aminotransferase 31 U/L (6-50); Albumin Level 4.4 g/dL (3.5-5.1); Alkaline Phosphatase 70 U/L (38-126); Anion Gap 8 mmol/L (4-12); Aspartate Amino Transferase 28 U/L (17-59); Bilirubin,Total 0.8 mg/dL (0.2-1.3); Blood Urea Nitrogen 23 mg/dL (9-20); Calcium 9.0 mg/dL (8.4-10.2); Carbon Dioxide 25 mmol/L (22-30); Chloride 108 mmol/L (98-107); Estimated CRCL calculation 57 ml/min; Estimated Glomerular Filt Rate > 60; Glucose 123 mg/dL (65-110); Osmolality Calculated 296 mOsm/kg (285-295); Potassium 4.3 mmol/L (3.4-5.0); Sodium 141 mmol/L (137-145); Total Protein 7.1 g/dL (6.3-8.2)
[2025-02-21 11:45] LABS: Troponin I < 0.012 ng/mL (0.000-0.034)
[2025-02-21] MEDS: MECLIZINE HCL 25 MG TABLET PO (12:32)
== END 2025-02-21 12:34 | disposition home or self-care (01) ==
PROVIDERS: Emergency Provider Emergency Medicine; PCP Family Medicine
DX: H66.90 Otitis media, unspecified, unspecified ear (principal); R42 Dizziness and giddiness; I25.2 Old myocardial infarction; E11.9 Type 2 diabetes mellitus without complications; I25.10 Atherosclerotic heart disease of native coronary artery without angina pectoris; I10 Essential (primary) hypertension; F17.210 Nicotine dependence, cigarettes, uncomplicated
CPT/HCPCS: 36415; 70450; 71046; 80053; 81001; 83605; 84484; 85025; 93005; 99284; A9270